=== PATIENT | female | born 1970 | race African-American/Black ===

== ENCOUNTER 2024-03-08 17:07 | Inpatient (IN) | payer MEDICARE, MEDICAID, SELFPAY ==
[2024-03-08] VITALS (11 sets, daily range): BP systolic 119–158; BP diastolic 88–122; BMI 23.0
[2024-03-08 12:45] LABS: % Basophils 0.1 % (0-2); % Immature Granulocytes 0.4 % (0-0.5); % Lymphocytes 13.3 % (20.5-51.1); % Monocytes 11.1 % (1.7-9.3); % Neutrophils 75.1 % (42.2-75.2); Absolute Immature Granulocytes 0.1 10^3/uL (0-0.05); Absolute Lymphocytes 1.5 10^3/uL (1.2-3.4); Absolute Monocytes 1.2 10^3/uL (0.1-0.6); Absolute Neutrophils 8.4 10^3/uL (1.4-6.5); Hemoglobin 13.1 g/dL (12.0-16.0); Mean Corp Hgb Conc. 35.4 g/dL (33.0-37.0); Mean Corpuscular Hgb 30.3 pg (27.0-31.0); Mean Corpuscular Volume 85.6 fL (81.0-99.0); Mean Platelet Volume 10.7 fL (7.4-10.4); Nucleated Red Blood Cells % 0 %; Platelet Count 233 10^3/uL (130-400); Red Blood Cell Count 4.32 10^6/uL (4.20-5.40); Red Cell Dist. Width 13.7 % (11.5-14.5); White Blood Cell Count 11.1 10^3/uL (4.8-10.8)
[2024-03-08 12:50] LABS: Potassium 3.2 mmol/L (3.5-5.1)
[2024-03-08 12:51] LABS: ALT (SGPT) 16 U/L (0-35); AST (SGOT) 36 U/L (14-36); Albumin 4.2 g/dl (3.5-5.0); Alkaline Phosphatase 67 U/L (38-126); Blood Urea Nitrogen 9 mg/dl (7-17); Calcium 10.2 mg/dl (8.4-10.2); Carbon Dioxide 25 mmol/L (22-30); Chloride 84 mmol/L (98-107); Glucose 156 mg/dl (70-99); Sodium 120 mmol/L (135-145); Total Bilirubin 0.9 mg/dl (0.2-1.3); Total Protein 6.9 g/dl (6.3-8.2); eGFR > 60.00
[2024-03-08 13:02] LABS: Troponin I < 0.012 ng/ml
[2024-03-08 13:21] LABS: Lipase 106 U/L (23-300)
--- NOTE | 2024-03-08 15:05 | ED.GENMED ---
History of Present Illness
<Zi Valero DO - Last Filed: 03/08/24 17:31>
General
Chief Complaint: Abdominal Symptoms
Time Seen by Provider: 03/08/24 14:25
<Anayeli Mcarthur PA-C - Last Filed: 03/16/24 10:25>
General
Source: patient
Exam Limitations: none
Nursing documentation reviewed up to this point in time: agreed with
History of Present Illness
History of Present Illness:
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
Presents for abdominal distention and vomiting. Patient apparently had vomited starting 2 days ago, the staff was unaware of whether she vomited yesterday but then again she vomited this morning and there were specks of blood in it. Patient
apparently has maybe some underlying chronic abdominal distention but this is questionable and not sure the reliability. Patient cannot offer much history. She is aware that she is in a hospital but does not really know why.
She is not known to be an alcoholic. She has recently had an MRI of her abdomen at an outside facility according to the nursing mold yarn supervisor who I talked to on the phone we do not have access to the copy of the MRI to tell us the report but did say
that there is 'something going on in her liver.'
Patient appears short of breath and in mild distress
Past History
<Anayeli Mcarthur PA-C - Last Filed: 03/16/24 10:25>
Past History
ED Past Medical History: Cancer (Breast), Hypothyroidism and Other (Intellectual delay)
Social History
Tobacco: Non-smoker
Alcohol: None
Drug: None
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
Review of Systems
<Anayeli Mcarthur PA-C - Last Filed: 03/16/24 10:25>
Review of Systems
Allergies reviewed?: Yes
Unable to obtain full review of systems at this time due to: due to acuity (Intellectual disability)
All Other Systems: Not applicable
Phy Exam
<Anayeli Mcarthur PA-C - Last Filed: 03/16/24 10:25>
Physical Exam
Physical Exam:
GENERAL: Alert , pale, tachypneic, tachycardic, looks mildly uncomfortable in mild distress
EYE: pupils equal and reactive
NECK: Supple
ENT: o/p clr, mmm.
CARDIAC: Tachycardic, no murmur
LUNGS: Tachypneic, diminished breath sounds, no wheezing, no cough
ABDOMEN: Tense, nontender, distended tympanic
NEUROLOGICAL: Alert and oriented, no focal neuro deficits
SKIN: Warm and dry, skin intact.
MUSCULOSKELETAL: No edema, well perfused.
PSYCH: Normal and appropriate interaction.
Course
<Zi Valero DO - Last Filed: 03/08/24 17:31>
Orders/Labs/Results
Orders:
Orders
03/08/24 12:17
Electrocardiogram (*1) Urgent
Reason for Study: Chest Pain
03/08/24 12:28
Complete Blood Count/With Diff Urgent
Comprehensive Metabolic Panel Urgent
Lipase Urgent
Serum Osmolality Urgent
Comment: ADD ON
TSH Reflex To Free T4 Urgent
Troponin I Urgent
03/08/24 14:46
CT Abd/Pel (IV only)-DH only Urgent
Comment:
Reason For Exam: abd distensino, fever
0.9% Sodium Chloride 500 ml [Nss] 500 ml IV BOLUS
Pantoprazole [Protonix IV] 40 mg IV NOW STA
03/08/24 14:58
Add On- LAB Urgent
Tests Added?: tsh free t4
03/08/24 Dinner
NPO
Allow oral meds: No
Allow clear liquids: No
03/08/24 15:03
Depakane Urgent
Lactic Acid Urgent
Blood Culture Urgent
DENYS Source: Blood/Venous
Specimen Description:
03/08/24 16:28
Osmolality, Random Urine Urgent
Date Specimen was Collected: 03/08/24
Time Specimen was Collected: 16:11
Urine Sodium Urgent
Date Specimen was Collected: 03/08/24
Time Specimen was Collected: 16:11
03/08/24 16:38
Potassium Chloride [KCl] 40 meq 0.9% Sodium Chloride 250 ml [Nss] 250 ml IV NOW
03/08/24 16:39
Consult Gastroenterology [GASTROINTESTINAL CONSULT] Urgent
Consulting Provider: Anayeli Bernard
Was physician already notified: Yes
Reason for consult: sigmoid volvulus
03/08/24 16:40
SURGICAL CONSULT Routine
Consulting Provider: Rich Hayes
Was physician already notified: Yes
Reason for consult: sigmoid volvulus
03/08/24 16:52
Admit/Transfer Patient As Directed
Co-Sign Provider:
Level of Care: Inpatient admission
Assign to:: IMU- Intermediate Care
Physician / Group: Jermaine
Diagnosis: sigmoid volvulus, hyponatremia
Reason for Hospitalization: sigmoid volvulus, hyponatremia
Expected length of stay greater than two midnights?: Yes
ELOS- Estimated Length of Stay in days: 5
I certify the patient meets the requirements for IP care: Yes
PRN Pain Medication Management As Directed
May give lesser potent ordered pain med per pt: Yes
preference::
Protocol:: Medication orders for pain may be administered in a
manner that supports deferring to patient preference
when the pt is:
- Requesting an ordered lesser potent pain medication.
Least to most potent pain medications are defined
as: acetaminophen < NSAID < tramadol < opioids
(morphine, oxycodone, hydromorphone).
- Requesting a lesser dose of the same medication IF
ORDERED.
- Requesting a less intrusive route of administration
if both routes are prescribed by the provider (PO <
IV).
03/08/24 16:53
Code Status As Directed
Resuscitation Status: Full Code
03/08/24 21:24
Bisacodyl [Dulcolax] 10 mg RECTAL [id number] PRN
Docusate W/Senna [Senokot-S] 1 tablet PO BIDPRN PRN
Enoxaparin Sodium [Lovenox] 40 mg SC QPM
KCl 20 Meq/0.9%Sodchl 1000 ml [NSS with KCL 20 MEQ] 20 meq in 1,000 ml IV 100 mls/hr
Levothyroxine [Levothroid] 37.5 mcg IV DAILY@1800
Patient requires IV dosing to begin now?: Yes
Reason to begin IV dosing now:: Other clinical indication
Polyethylene Glycol Powder [Miralax] 17 grams PO DAILYPRN PRN
03/08/24 21:24
Activity As Directed
Activity Level: With Assistance
Vital Signs As Directed
Frequency: Per unit guidelines
DX Deep Vein Thrombosis Video Routine
03/08/24 22:00
Valproate Sodium [Depacon] 500 mg 0.9% Sodium Chloride 50 ml [Nss] 50 ml IV HS
03/08/24 22:36
BMP [Basic Metabolic Panel] Q4H
03/09/24 04:02
BMP [Basic Metabolic Panel] Q4H
Complete Blood Count/No Diff IN AM
03/09/24 07:49
BMP [Basic Metabolic Panel] Q4H
03/09/24 08:00
Valproate Sodium [Depacon] 250 mg 0.9% Sodium Chloride 50 ml [Nss] 50 ml IV DAILY
03/09/24 11:34
BMP [Basic Metabolic Panel] Q4H
03/10/24 05:31
Complete Blood Count/No Diff IN AM
03/11/24 04:42
Complete Blood Count/No Diff IN AM
03/12/24 03:57
Complete Blood Count/No Diff IN AM
03/13/24 07:45
Complete Blood Count/No Diff IN AM
03/14/24 06:50
Complete Blood Count/No Diff IN AM
03/15/24 07:36
Complete Blood Count/No Diff IN AM
Abnormal Lab Results
03/08/24 03/08/24
15:03
WBC 11.1 H 10^3/uL
(4.8-10.8)
MPV 10.7 H fL
(7.4-10.4)
Abs Immat Gran (auto) 0.1 H 10^3/uL
(0-0.05)
Absolute Neuts (auto) 8.4 H 10^3/uL
(1.4-6.5)
Absolute Monos (auto) 1.2 H 10^3/uL
(0.1-0.6)
Lymphocytes % 13.3 L %
(20.5-51.1)
Monocytes % 11.1 H %
(1.7-9.3)
Sodium 120 L mmol/L
(135-145)
Potassium 3.2 L mmol/L
(3.5-5.1)
Chloride 84 L mmol/L
(98-107)
Creatinine 0.5 L mg/dL
(0.6-1.0)
Glucose 156 H mg/dl
(70-99)
Serum Osmolality 253 L mOsm/kg
(275-300)
Valproic Acid 45.0 L ug/ml
(50.0-120.0)
03/08/24 12:28
03/08/24 12:28
Vital Signs
Initial and Last Documented VS:
Initial Vital Signs
Temp Pulse Resp BP Pulse Ox
36.7 C 138 26 142/100 93
03/08/24 12:11 03/08/24 12:11 03/08/24 12:11 03/08/24 12:11 03/08/24 12:11
Last Documented Vital Signs
Temp Pulse Resp BP Pulse Ox
36.8 C 92 17 126/95 96
03/16/24 07:10 03/16/24 07:10 03/16/24 07:10 03/16/24 10:10 03/16/24 07:10
<Anayeli Mcarthur PA-C - Last Filed: 03/16/24 10:25>
Orders/Labs/Results
Orders:
Orders
03/08/24 12:17
Electrocardiogram (*1) Urgent
Reason for Study: Chest Pain
03/08/24 12:28
Complete Blood Count/With Diff Urgent
Comprehensive Metabolic Panel Urgent
Lipase Urgent
Serum Osmolality Urgent
Comment: ADD ON
TSH Reflex To Free T4 Urgent
Troponin I Urgent
03/08/24 14:46
CT Abd/Pel (IV only)-DH only Urgent
Comment:
Reason For Exam: abd distensino, fever
0.9% Sodium Chloride 500 ml [Nss] 500 ml IV BOLUS
Pantoprazole [Protonix IV] 40 mg IV NOW STA
03/08/24 14:58
Add On- LAB Urgent
Tests Added?: tsh free t4
03/08/24 Dinner
NPO
Allow oral meds: No
Allow clear liquids: No
03/08/24 15:03
Depakane Urgent
Lactic Acid Urgent
Blood Culture Urgent
DENYS Source: Blood/Venous
Specimen Description:
03/08/24 16:28
Osmolality, Random Urine Urgent
Date Specimen was Collected: 03/08/24
Time Specimen was Collected: 16:11
Urine Sodium Urgent
Date Specimen was Collected: 03/08/24
Time Specimen was Collected: 16:11
03/08/24 16:38
Potassium Chloride [KCl] 40 meq 0.9% Sodium Chloride 250 ml [Nss] 250 ml IV NOW
03/08/24 16:39
Consult Gastroenterology [GASTROINTESTINAL CONSULT] Urgent
Consulting Provider: Anayeli Bernard
Was physician already notified: Yes
Reason for consult: sigmoid volvulus
03/08/24 16:40
SURGICAL CONSULT Routine
Consulting Provider: Rich Hayes
Was physician already notified: Yes
Reason for consult: sigmoid volvulus
03/08/24 16:52
Admit/Transfer Patient As Directed
Co-Sign Provider:
Level of Care: Inpatient admission
Assign to:: IMU- Intermediate Care
Physician / Group: Jermaine
Diagnosis: sigmoid volvulus, hyponatremia
Reason for Hospitalization: sigmoid volvulus, hyponatremia
Expected length of stay greater than two midnights?: Yes
ELOS- Estimated Length of Stay in days: 5
I certify the patient meets the requirements for IP care: Yes
PRN Pain Medication Management As Directed
May give lesser potent ordered pain med per pt: Yes
preference::
Protocol:: Medication orders for pain may be administered in a
manner that supports deferring to patient preference
when the pt is:
- Requesting an ordered lesser potent pain medication.
Least to most potent pain medications are defined
as: acetaminophen < NSAID < tramadol < opioids
(morphine, oxycodone, hydromorphone).
- Requesting a lesser dose of the same medication IF
ORDERED.
- Requesting a less intrusive route of administration
if both routes are prescribed by the provider (PO <
IV).
03/08/24 16:53
Code Status As Directed
Resuscitation Status: Full Code
03/08/24 21:24
Bisacodyl [Dulcolax] 10 mg RECTAL [id number] PRN
Docusate W/Senna [Senokot-S] 1 tablet PO BIDPRN PRN
Enoxaparin Sodium [Lovenox] 40 mg SC QPM
KCl 20 Meq/0.9%Sodchl 1000 ml [NSS with KCL 20 MEQ] 20 meq in 1,000 ml IV 100 mls/hr
Levothyroxine [Levothroid] 37.5 mcg IV DAILY@1800
Patient requires IV dosing to begin now?: Yes
Reason to begin IV dosing now:: Other clinical indication
Polyethylene Glycol Powder [Miralax] 17 grams PO DAILYPRN PRN
03/08/24 21:24
Activity As Directed
Activity Level: With Assistance
Vital Signs As Directed
Frequency: Per unit guidelines
DX Deep Vein Thrombosis Video Routine
03/08/24 22:00
Valproate Sodium [Depacon] 500 mg 0.9% Sodium Chloride 50 ml [Nss] 50 ml IV HS
03/08/24 22:36
BMP [Basic Metabolic Panel] Q4H
03/09/24 04:02
BMP [Basic Metabolic Panel] Q4H
Complete Blood Count/No Diff IN AM
03/09/24 07:49
BMP [Basic Metabolic Panel] Q4H
03/09/24 08:00
Valproate Sodium [Depacon] 250 mg 0.9% Sodium Chloride 50 ml [Nss] 50 ml IV DAILY
03/09/24 11:34
BMP [Basic Metabolic Panel] Q4H
03/10/24 05:31
Complete Blood Count/No Diff IN AM
03/11/24 04:42
Complete Blood Count/No Diff IN AM
03/12/24 03:57
Complete Blood Count/No Diff IN AM
03/13/24 07:45
Complete Blood Count/No Diff IN AM
03/14/24 06:50
Complete Blood Count/No Diff IN AM
03/15/24 07:36
Complete Blood Count/No Diff IN AM
Abnormal Lab Results
03/08/24 03/08/24
12 15:03
WBC 11.1 H 10^3/uL
(4.8-10.8)
MPV 10.7 H fL
(7.4-10.4)
Abs Immat Gran (auto) 0.1 H 10^3/uL
(0-0.05)
Absolute Neuts (auto) 8.4 H 10^3/uL
(1.4-6.5)
Absolute Monos (auto) 1.2 H 10^3/uL
(0.1-0.6)
Lymphocytes % 13.3 L %
(20.5-51.1)
Monocytes % 11.1 H %
(1.7-9.3)
Sodium 120 L mmol/L
(135-145)
Potassium 3.2 L mmol/L
(3.5-5.1)
Chloride 84 L mmol/L
(98-107)
Creatinine 0.5 L mg/dL
(0.6-1.0)
Glucose 156 H mg/dl
(70-99)
Serum Osmolality 253 L mOsm/kg
(275-300)
Valproic Acid 45.0 L ug/ml
(50.0-120.0)
03/08/24 12:28
03/08/24 12:28
Vital Signs
Initial and Last Documented VS:
Initial Vital Signs
Temp Pulse Resp BP Pulse Ox
36.7 C 138 26 142/100 93
03/08/24 12:11 03/08/24 12:11 03/08/24 12:11 03/08/24 12:11 03/08/24 12:11
Last Documented Vital Signs
Temp Pulse Resp BP Pulse Ox
36.8 C 92 17 126/95 96
03/16/24 07:10 03/16/24 07:10 03/16/24 07:10 03/16/24 10:10 03/16/24 07:10
<Anayeli Mcarthur PA-C - Last Filed: 03/16/24 10:25>
MDM/Problems Addressed
Differential Diagnosis Includes:
liver disease/ascites, peritonitis, sbo
MDM/Problems Addressed:
room 14 formerly [facility], [facility]
senior care, poor historian
severe abd distension and n/v x 2-3 days; tachypneic, tachycardic, hypertensive
na 120
looks dry mucus membraines
CT shows likely sigmoid volvulus; probably has underlying mass of some sort;
consulted surgery, dr hayes aware; from recommneded GI to perform urgent flex/sig
dr. bernard GI also aware
pt may require ICU level of care
<Anayeli Mcarthur PA-C - Last Filed: 03/16/24 10:25>
*Critical Care Note
Total Time (30-74mins, 75-104mins- exclusive of procedures): Not Applicable
ED Attending Note
<Zi Valero DO - Last Filed: 03/08/24 17:31>
ED Attending Note
Patient seen and examined by attending physician: Yes
I performed the substantive portion of visit, reviewed & personally made and approve the management plan that is documented in note by myself or MICHAELLE.: Yes
-
Portions of this chart may have been created with voice recognition software.� Occasional wrong word or��sound alike� substitutions may have occurred due to the inherent limitations of voice recognition software.
Discharge Plan
Departure
Patient Disposition: Admit
Date of Disposition: 03/08/24
Time of Disposition: 16:20
Admit to: IMU
Presentation/result/management discussed w/ accepting MD/DO: Hospitalist
Condition: Fair
Covid-19: Not Applicable
Discharge Problem:
Acute hyponatremia, Sigmoid volvulus
Interventions
Interventions:
*Risk Screen - Suicide Last Done: 03/08/24 23:23
ED- Fall Risk Assessment Last Done: 03/08/24 15:20
*Nursing Disposition Last Done: 03/08/24 17:51
BJ-Btjiwu-Ogbmlvrjct Assessment Last Done: 03/08/24 14:19
Discharge Date and Time
Discharge Date/Time: 03/08/24 17:52
[2024-03-08] MEDS: PROTONIX IV 40 MG IV (15:08)
[2024-03-08] MEDS: NSS 500 IV (15:08)
[2024-03-08 15:22] LABS: Lactic Acid 1.5 mmol/L (0.7-2.0)
[2024-03-08 16:08] LABS: TSH Reflex To Free T4 2.79 uIU/ml (0.47-4.68)
[2024-03-08 16:34] LABS: Osmolality Serum 253 mOsm/kg (275-300)
--- NOTE | 2024-03-08 16:37 | HPS.HSE ---
Addendum entered and electronically signed by Juan Jose Dean MD 03/08/24 16:57:
Correction to physical exam (please ignore other physical exam):
Gen: NAD, AAOx2.
Eyes: EOMI, PERRLA, no scleral icterus.
Neck: supple.
CV: tach, reg, rhythm, +S1/S2, no m/r/g.
Resp: CTAB, no rales, wheezes, or rhonchi.
Abd: +BS, soft, NT, severe abdominal distention
Skin: No rashes.
Neuro: CN 2-12 intact, non-focal.
Psych: Normal mood and affect.
Original Note:
Family Physician
-
Family Physician: Corwin Haq
Chief Complaint
-
Abdominal distention, vomiting
History of Present Illness
54 y/o F with PMHx hypothyroidism and likely developmental delay who p/w CC abdominal distention and vomiting. The patient is very poor historian. She knows her name and where she is but is unsure of the year. She states a few days ago she had
vomiting (without hematemesis or coffee-ground emesis) as well as a bowel movement in a 'bathtub.' She states she had a bowel movement this morning. She cannot give any further history. Denies any other acute complaints. In the ER the patient
had a significantly distended abdomen and CT scan of the abdomen pelvis was concerning for sigmoid volvulus causing large bowel obstruction.
Medical History
Past Medical History
Past Medical History: Reports Hyperthyroidism
Past Surgical History: Reports Other (unknown, N/A)
Social History
Tobacco: Non-smoker
Alcohol: None
Drug: None
Family History
Family History: Not pertinent
Allergies / Home Medications
Allergies reflects when Allergies were last updated in [facility] [employer].
Home Medications with original date entered in [facility]
Allergy/Medication List:
Allergies
Allergy/AdvReac Type Severity Reaction Status Date / Time
clonazepam Allergy Unknown Verified 03/08/24 12:19
haloperidol [From Haldol] Allergy Unknown Verified 03/08/24 12:19
molindone [From Moban] Allergy Unknown Verified 03/08/24 12:19
nickel Allergy Unknown Verified 03/08/24 12:19
Thioxanthenes Allergy Unknown Verified 03/08/24 12:19
risperdone, strattera, depakote, levothyroxine - med rec underway
Review of Systems
-
Unable to obtain full review of systems at this time due to: Other (developmental delay and acuity)
Physical Exam
Vital Signs
Vital Signs
Temp Pulse Resp BP Pulse Ox
98.0 F 138 17 142/100 93
03/08/24 12:11 03/08/24 12:11 03/08/24 15:23 03/08/24 12:11 03/08/24 12:11
Physical Exam
General: Other (.)
Laboratory Results
-
03/08/24 12:28
03/08/24 12:28
Laboratory Results
Lactic Acid 1.5 mmol/L (0.7-2.0) 03/08/24 15:03
Total Bilirubin 0.9 mg/dl (0.2-1.3) 03/08/24 12:28
AST 36 U/L (14-36) 03/08/24 12:28
ALT 16 U/L (0-35) 03/08/24 12:28
Alkaline Phosphatase 67 U/L (38-126) 03/08/24 12:28
Troponin I < 0.012 ng/ml 03/08/24 12:28
Lipase 106 U/L (23-300) 03/08/24 12:28
Impression/Plan
-
Gen: NAD, AAOx3.
Eyes: EOMI, PERRLA, no scleral icterus.
Neck: supple.
CV: RRR, +S1/S2, no m/r/g.
Resp: CTAB, no rales, wheezes, or rhonchi.
Abd: +BS, soft, NT, ND
Skin: No rashes.
Neuro: CN 2-12 intact, non-focal.
Psych: Normal mood and affect.
CT A/P: Large bowel obstruction with pronounced dilation of the colon extending to the distal sigmoid. There is apparent twisting of the sigmoid colon, seen best on coronal imaging, highly suspicious for sigmoid volvulus. There is a 10.0 x 8.3 x 8.4
cm cystic focus within the presacral/retrouterine space which may represent cystic presacral or ovarian lesion, or possible loculated fluid. There is an additional 3.4 cm hypodense lesion within the right ovary. Further evaluation with dedicated
pelvic ultrasound is recommended. There are numerous hypodense hepatic lesions with the largest measuring 8.9 cm. These appear to demonstrate peripheral, nodular discontinuous enhancement and may represent large hemangiomas although metastatic
disease is possible. Recommend MRI abdomen for further evaluation. There are numerous mildly hypodense lesions within the spleen which measure up to 1.4 cm which are indeterminant on this examination however may represent hemangiomas, although
metastasis are also possible. Further evaluation with MRI abdomen should be considered. There is elevation of the left hemidiaphragm with left basilar atelectasis. There is small volume intrahepatic free fluid. Diffuse osteopenia with scattered
sclerotic foci, possible bone islands.
Acute large bowel obstruction due to sigmoid volvulus:
-NPO/IVFs
-c/s GI for endoscopic decompression
-c/s surgery
-will need further imaging to better assess other findings on the CT scan of the abdomen pelvis. Concern for underlying malignancy.
Severe Hypotonic Hyponatremia:
-Likely due to intraabdominal pathology and psychotropic meds
-UOsm 678, SOsm 253, Adryan pending
-NS with 20meq K/L @100cc/hr, follow BMP Q4H
-c/s renal
Other problems:
Hypothyroidism: TSH normal, will give IV synthroid
Hypokalemia: 40meq IV K, check Mg
FULL/Lovenox
[2024-03-08 16:39] LABS: Osmolality Urine 678 mOsm/kg (300-900)
[2024-03-08 16:58] LABS: Urine Sodium 30 mmol/L (30-90)
--- NOTE | 2024-03-08 16:59 | W.CON.NEPH ---
Consultation
-
Date/Time Consultation Requested: 03/08/241649
Date/Time Consultation Performed: 03/08/24 1715
Requesting Provider: Juan Jose Duff
Performing Provider: Cheyanne Jackman
Reason for Consultation: hyponatremia
Medical History
-
Chief Complaint: abdominal distension and vomiting
History of Present Illness:
54-year-old female from a snf with Possible developmental delay, on multiple psychotropic medications, hypothyroidism on levothyroxine who was brought in today with complaints about abdominal distention, pain and vomiting. Patient is a poor
historian due to her cognitive state, she reports having nausea and vomiting for 3-4 days. She reports not able to pass gas and her abdomen distended with the pain. in the ER CT scan shows possible sigmoid volvulus. GI and surgery has been
consult that. Her blood pressures are slightly elevated however she is tachycardic. She denies any fever or dysuria. no shortness of breath. As stated history is limited. Most of the history is opted to the chart. Her labs noted to have sodium
of 120 hence nephrology consult at. She reports no previous history of hyponatremia that she Can remember. reportedly CT scan also shows multiple hypodense areas, from ER notes she had MRI done as an outpatient and do not have report currently.
She received 500 cc of normal saline bolus.
Past Medical History
hypothyroidism, developmental delay
Social History
Tobacco: Non-Smoker
Alcohol: None
Personal: Single
Living: With Roomate (snf)
Family History
unable to obtain, patient poor historian
Allergies / Home Medications
Allergy/AdvReac Type Severity Reaction Status Date / Time
clonazepam Allergy Unknown Verified 03/08/24 12:19
haloperidol [From Haldol] Allergy Unknown Verified 03/08/24 12:19
molindone [From Moban] Allergy Unknown Verified 03/08/24 12:19
nickel Allergy Unknown Verified 03/08/24 12:19
Thioxanthenes Allergy Unknown Verified 03/08/24 12:19
�Medication �Instructions �Recorded �Confirmed �Type
acetaminophen 325 mg tablet 650 mg PO Q4HPRN PRN mild 03/08/24 03/08/24 History
pain/headache/temp>101
atomoxetine 18 mg capsule 18 mg PO DAILY 03/08/24 03/08/24 History
calcium 600 mg (as 2 tab PO HS 03/08/24 03/08/24 History
carbonate)-vitamin D3 10 mcg (400
unit) tablet (Calcium 600 + D(3))
dextromethorphan-guaifenesin 10 10 ml PO Q4HPRN PRN cough 03/08/24 03/08/24 History
mg-100 mg/5 mL oral syrup (Chest
Congestion Relief DM)
divalproex 250 mg tablet,extended 250 mg PO DAILY 03/08/24 03/08/24 History
release 24 hr
divalproex 500 mg tablet,extended 500 mg PO HS 03/08/24 03/08/24 History
release 24 hr
docusate sodium 100 mg capsule 100 mg PO BID 03/08/24 03/08/24 History
hydroxyzine HCl 25 mg tablet 25 mg PO DAILYPRN PRN anxiety 03/08/24 03/08/24 History
before medical procedure
latanoprost 0.005 % eye drops 1 drp BOTH EYES HS 03/08/24 03/08/24 History
levothyroxine 50 mcg tablet 50 mcg PO DAILY 03/08/24 03/08/24 History
loperamide 2 mg capsule 2 mg PO Q4HPRN PRN diarrhea 03/08/24 03/08/24 History
loratadine 10 mg tablet 10 mg PO DAILYPRN PRN allergy/cough 03/08/24 03/08/24 History
neomycin-bacitracn Zn-polymyxn 3.5 1 applic topical TIDPRN PRN 03/08/24 03/08/24 History
mg-400 unit-5,000 unit top oint cuts/scrapes/abrasion
pkt (Triple Antibiotic)
polyethylene glycol 3350 17 gram 17 g PO Q48H 03/08/24 03/08/24 History
oral powder packet (Gavilax)
pseudoephedrine HCl 30 mg tablet 30 mg PO Q6HPRN PRN nasal 03/08/24 03/08/24 History
(Sudogest) congestion
risperidone 3 mg tablet 3 mg PO HS 03/08/24 03/08/24 History
therapeutic multivitamin 1 tab PO DAILY 03/08/24 03/08/24 History
tolterodine 2 mg capsule,extended 2 mg PO HS 03/08/24 03/08/24 History
release 24 hr
Review of Systems
-
Poor historian, all complete 12 point review of system have been inquired and found negative other than stated in HPI
Physical Exam
Vital Signs
Vital Signs
Temp Pulse Resp BP Pulse Ox
99.1 F 114 24 145/111 93
03/08/24 16:42 03/08/24 16:30 03/08/24 16:30 03/08/24 16:26 03/08/24 16:30
Lab Results
WBC 11.1 10^3/uL (4.8-10.8) H 03/08/24 12:28
RBC 4.32 10^6/uL (4.20-5.40) 03/08/24 12:28
Hgb 13.1 g/dL (12.0-16.0) 03/08/24 12:28
Hct 37.0 % (37.0-47.0) 03/08/24 12:28
Plt Count 233 10^3/uL (130-400) 03/08/24 12:28
Sodium 120 mmol/L (135-145) L 03/08/24 12:28
Potassium 3.2 mmol/L (3.5-5.1) L 03/08/24 12:28
Chloride 84 mmol/L (98-107) L 12/25/24 12:
Carbon Dioxide 25 mmol/L (22-30) 03/08/24 12:
BUN 9 mg/dl (7-17) 03/08/24 12:
Creatinine 0.5 mg/dL (0.6-1.0) L 03/08/24 12:
eGFR > 60.00 03/08/24 12:
Glucose 156 mg/dl (70-99) H 03/08/24 12:
Calcium 10.2 mg/dl (8.4-10.2) 03/08/24 12:
Albumin 4.2 g/dl (3.5-5.0) 03/08/24 12:
CT abd with IV contrast:
IMPRESSION:
Large bowel obstruction with pronounced dilation of the colon extending to the distal sigmoid. There is apparent twisting of the sigmoid colon, seen best on coronal imaging, highly suspicious for sigmoid volvulus.
There is a 10.0 x 8.3 x 8.4 cm cystic focus within the presacral/retrouterine space which may represent cystic presacral or ovarian lesion, or possible loculated fluid. There is an additional 3.4 cm hypodense lesion within the right ovary. Further
evaluation with dedicated pelvic ultrasound is recommended.
There are numerous hypodense hepatic lesions with the largest measuring 8.9 cm. These appear to demonstrate peripheral, nodular discontinuous enhancement and may represent large hemangiomas although metastatic disease is possible. Recommend MRI
abdomen for further evaluation.
There are numerous mildly hypodense lesions within the spleen which measure up to 1.4 cm which are indeterminant on this examination however may represent hemangiomas, although metastasis are also possible. Further evaluation with MRI abdomen should
be considered.
There is elevation of the left hemidiaphragm with left basilar atelectasis.
There is small volume intrahepatic free fluid.
Diffuse osteopenia with scattered sclerotic foci, possible bone islands.
Physical Exam
General: Awake, Alert, Oriented and AOx3
HEENT: EOMI, Anicteric and Facial Symmetry
Respiratory: Clear, Normal Excursion and Nonlabored Respirations
Cardiac: S1/S2 and Regular Rate/Rhythm
Breast: Deferred by me
Abdomen: Other ( firm, distended, tympanic BS)
Musculoskeletal: No Cyanosis and No Edema
Skin: No Rash
Neuro: Nonfocal/Grossly Intact
Psych: Appropriate
Data Reviewed
-
CT Scan: Report Reviewed by me
Labs: Labs Reviewed by me and Discussed with Patient
Assessment/Plan
-
IMP:
Acute large bowel obstruction due to sigmoid volvulus
Severe Hyponatremia
Hypothyroidism
Hypokalemia
Developmental delay
Osteopenia noted on CT
Hepatic hypodense lesions noted on CT
Ovarian cyst /lesion 10cm -on CT
Plan:
A/w abd distension and vomiting
CT noted sigmoid volvulus-NPO, GI and surg consulted
hyponatremia-no previous labs to compare
ADH mediated U osmo 678, U na 30
possible prerenal-hypovolemic clinically
agree with isotonic fluids, follow q4 check of sodium
goal of correction 6-8meq/day
consider HTS if no sig improvement noted
note she is on multiple psychotropic meds
monitor UOP
replace potassium
CT abd noted multiple other lesions
bp stable
--- NOTE | 2024-03-08 17:06 | CON.GI ---
Consultation
-
Date/Time Consultation Requested: 03/08/24
Date/Time Consultation Performed: 03/08/24
Requesting Provider: Dr. Hayes
Performing Provider: Dr. Bernard
Reason for Consultation: Sigmoid volvulus
Medical History
Chief Complaint / HPI
Chief Complaint: sigmoid volvulus
History of Present Illness:
Kendra Gandhi is a 54 y.o. female with intellectual disability who presents from her longterm, accompanied by [employer] working with 2 days of vomiting and abdominal distension. Imaging on arrival demonstrates large bowel obstruction with sigmoid
volvulus, c/f underlying colon mass. She was mildly hypertensive on arrival, tachypneic and tachycardic, afebrile. Unable to participate in history due to dementia. intermediate employee mentioned MRI of abdomen at outside facility somewhat recently,
notes 'abnormalities in the liver.'
She has a mild leukocytosis, WBC 11.1, otherwise, normal hemoglobin and platelets. Noted to have significant hyponatremia of 120, K 3.2, Serum osm 253, LFTs WNL, Lipase WNL.
MERON (Sister)- Ana María Johsn
CT A/P: Large bowel obstruction with pronounced dilation of the colon extending to the distal sigmoid. There is apparent twisting of the sigmoid colon, seen best on coronal imaging, highly suspicious for sigmoid volvulus. There is a 10.0 x 8.3 x 8.4
cm cystic focus within the presacral/retrouterine space which may represent cystic presacral or ovarian lesion, or possible loculated fluid. There is an additional 3.4 cm hypodense lesion within the right ovary. Further evaluation with dedicated
pelvic ultrasound is recommended. There are numerous hypodense hepatic lesions with the largest measuring 8.9 cm. These appear to demonstrate peripheral, nodular discontinuous enhancement and may represent large hemangiomas although metastatic
disease is possible. Recommend MRI abdomen for further evaluation. There are numerous mildly hypodense lesions within the spleen which measure up to 1.4 cm which are indeterminant on this examination however may represent hemangiomas, although
metastasis are also possible. Further evaluation with MRI abdomen should be considered. There is elevation of the left hemidiaphragm with left basilar atelectasis. There is small volume intrahepatic free fluid. Diffuse osteopenia with scattered
sclerotic foci, possible bone islands.
Past Medical History
Past Medical History: Hyperthyroidism and Other (intellectualdisability )
Past Surgical History: Other (other)
Social History
Tobacco: Non-Smoker
Alcohol: None
Drug: None
Living: Other (longterm)
Family History
Family History: Unable to Obtain
Allergies / Home Medications
Allergy/AdvReac Type Severity Reaction Status Date / Time
clonazepam Allergy Unknown Verified 03/08/24 12:19
haloperidol [From Haldol] Allergy Unknown Verified 03/08/24 12:19
molindone [From Moban] Allergy Unknown Verified 03/08/24 12:19
nickel Allergy Unknown Verified 03/08/24 12:19
Thioxanthenes Allergy Unknown Verified 03/08/24 12:19
�Medication �Instructions �Recorded
acetaminophen 325 mg tablet 650 mg PO Q4HPRN PRN mild 03/08/24
pain/headache/temp>101
atomoxetine 18 mg capsule 18 mg PO DAILY 03/08/24
calcium 600 mg (as 2 tab PO HS 03/08/24
carbonate)-vitamin D3 10 mcg (400
unit) tablet (Calcium 600 + D(3))
dextromethorphan-guaifenesin 10 10 ml PO Q4HPRN PRN cough 03/08/24
mg-100 mg/5 mL oral syrup (Chest
Congestion Relief DM)
divalproex 250 mg tablet,extended 250 mg PO DAILY 03/08/24
release 24 hr
divalproex 500 mg tablet,extended 500 mg PO HS 03/08/24
release 24 hr
docusate sodium 100 mg capsule 100 mg PO BID 03/08/24
hydroxyzine HCl 25 mg tablet 25 mg PO DAILYPRN PRN anxiety 03/08/24
before medical procedure
latanoprost 0.005 % eye drops 1 drp BOTH EYES HS 03/08/24
levothyroxine 50 mcg tablet 50 mcg PO DAILY 03/08/24
loperamide 2 mg capsule 2 mg PO Q4HPRN PRN diarrhea 03/08/24
loratadine 10 mg tablet 10 mg PO DAILYPRN PRN allergy/cough 03/08/24
neomycin-bacitracn Zn-polymyxn 3.5 1 applic topical TIDPRN PRN 03/08/24
mg-400 unit-5,000 unit top oint cuts/scrapes/abrasion
pkt (Triple Antibiotic)
polyethylene glycol 3350 17 gram 17 g PO Q48H 03/08/24
oral powder packet (Gavilax)
pseudoephedrine HCl 30 mg tablet 30 mg PO Q6HPRN PRN nasal 03/08/24
(Sudogest) congestion
risperidone 3 mg tablet 3 mg PO HS 03/08/24
therapeutic multivitamin 1 tab PO DAILY 03/08/24
tolterodine 2 mg capsule,extended 2 mg PO HS 03/08/24
release 24 hr
Review of Systems
-
Unable to obtain full review of systems at this time due to: Acuity and Other (developmental delay)
History Source: Transfer Record, Physician and Coordinating Provider
Vital Signs
Temp Pulse Resp BP Pulse Ox
99.1 F 114 24 145/111 93
03/08/24 16:42 03/08/24 16:30 03/08/24 16:30 03/08/24 16:26 03/08/24 16:30
Physical Exam
Exam
GI: Distended (Significant abdominal distension, TTP diffusely but no rebound or guarding. Hypoactive BS (but present)) and Other
Results
WBC 11.1 10^3/uL (4.8-10.8) H 03/08/24 12:28
Hgb 13.1 g/dL (12.0-16.0) 03/08/24 12:
Hct 37.0 % (37.0-47.0) 03/08/24 12:
MCV 85.6 fL (81.0-99.0) 03/08/24 12:
Plt Count 233 10^3/uL (130-400) 03/08/24 12:
Absolute Neuts (auto) 8.4 10^3/uL (1.4-6.5) H 03/08/24 12:
Sodium 120 mmol/L (135-145) L 03/08/24 12:
Potassium 3.2 mmol/L (3.5-5.1) L 03/08/24 12:
Chloride 84 mmol/L (98-107) L 03/08/24 12:
Carbon Dioxide 25 mmol/L (22-30) 03/08/24 12:
BUN 9 mg/dl (7-17) 03/08/24 12:
Creatinine 0.5 mg/dL (0.6-1.0) L 03/08/24 12:
Calcium 10.2 mg/dl (8.4-10.2) 03/08/24 12:
Total Bilirubin 0.9 mg/dl (0.2-1.3) 03/08/24 12:
AST 36 U/L (14-36) 03/08/24 12:
ALT 16 U/L (0-35) 03/08/24 12:
Alkaline Phosphatase 67 U/L (38-126) 03/08/24 12:28
Lipase 106 U/L (23-300) 03/08/24 12:
Diagnostic Image Results:
Prior GI Procedures:
EGD:
Colonoscopy:
Assessment / Plan
-
54 y.o. female with intellectual disability presents from longterm with 2 days of nausea, vomiting and abdominal distension found to sigmoid volvulus, labs notable for severe hyponatremia.
#Large bowel obstruction 2/2 Sigmoid volvulus
-CT A/P shows large bowel obstruction 2/2 sigmoid volvulus with presene of 10 x 8.3. x 8.4 cystic focus within the presacral/retrouterine space which may represent cystic presacral or ovarian lesion or possibly loculated fluid; additional 3.4 cm
hypodense lesion in the right ovary, recc dedicated pelvic US; numerous hypodense lesions visualized in the liver, the largest measuring 8.9 cm, could represent large hemangiomas vs. mets
-Plan for urgent endoscopic decompression; POA called x2, no answer, VM left to call hospital back to discuss urgent situation and need to discuss her sisters care; in this setting, endoscopic decompression is a temporary treatment and will recur
without more definitive intervention (i.e. surgical intervention)
-Surgery following
-given findings on CT scan, will need dedicated pelvic US as well as MRI abdomen when more acute issue has resolved\\
#Hyponatremia
-Na 120, Serum osm 253, Uosm 678, Adryan pending
-Correction per primary team
-given need for urgent decompression, anesthesia okay with proceeding
Data Reviewed
-
Radiology: Image Personally Visualized and interpreted, Report Reviewed by me and Discussed with Physician
-
-
Thank you for consultation and allowing me to participate in the patient's care. Please call the contact worker GI physician during the after hours with any questions or concerns.
--- NOTE | 2024-03-08 18:00 | W.PN.UPDATE ---
Update Note
Progress Note Update
Attempted to reach patient's POA (Sister), Ana María x3, VM left, no return call. Due to medical emergency, will proceed with endoscopic decompression with 2 physician consent, myself and anesthesiologist, Dr. Pinedo.
--- NOTE | 2024-03-08 21:20 | W.PN.UPDATE ---
Update Note
Progress Note Update
Brief consult note:
54F with developmental delay and minimal clinical insight (not capacitated) admitted for sigmoid volvulus. Endoscopic mgmt attempted unsuccessfully by GI team. Concern for ischemia on endoscopic findings. Plan for emergent ex-lap. [facility] and [facility]
contact both called, unable to reach.
Full consult note to follow
--- NOTE | 2024-03-08 21:21 | W.IMMPOSTOP ---
Surgical Immed Post Op Note
-
Primary Surgeon: Abigail
Pre-op Diagnosis: Sigmoid volvulus
Post-op Diagnosis: Same
Procedure Performed: Exploratory laparotomy, sigmoidectomy, creation end colostomy
Anesthesia Type: GETA + TAP block
Specimen / Cultures: Sigmoid colon
Estimated Blood Loss: 50cc
Complications: None immediate
Operative Findings: Severely distended colon, worst at sigmoid, with torsion point low in the pelvis; patchy ischemia around the torsion point; rectal stump stapled off distal to ischemic area and tagged with 2-0 prolene; descending end colostomy
created, brisk bleeding at cut edge of stoma, virtually no contamination; roughly 50cm colon resected, large redundant transverse colon noted
Sister Ana María called, unable to reach VM left
--- NOTE | 2024-03-08 22:12 | SUR.PHASEI ---
Pt adm to PACU drowsy but arousable, VSS, BBS clear. Abd distended,Dr. Hayes aware NGT placement confirmed, To low suction with no output at this time. Dr Hayes aware , stomach emptied prior to D/C from OR. No complaints of pain , HOB up 30
degrees.
--- NOTE | 2024-03-08 22:40 | SUR.PHASEI ---
No increase in abd distension, Colostomy stoma pink, min amt bloody gg in colostomy bag. Pt more awake.VSS
[2024-03-08 22:58] LABS: Blood Urea Nitrogen 8 mg/dl (7-17); Calcium 7.6 mg/dl (8.4-10.2); Carbon Dioxide 27 mmol/L (22-30); Chloride 90 mmol/L (98-107); Estimated Creatinine Clearance 113 ml/min; Glucose 125 mg/dl (70-99); Potassium 3.8 mmol/L (3.5-5.1); Sodium 122 mmol/L (135-145); eGFR > 60.00
[2024-03-08] MEDS: NSS with KCL 20 MEQ 1000 IV (23:40)
[2024-03-08] MEDS: DEPACON 55 MG IV (23:45)
[2024-03-08] MEDS: LEVOTHROID IV (23:56)
[2024-03-08] MEDS: LOVENOX SC (23:56)
[2024-03-09] VITALS (13 sets, daily range): BP systolic 90–116; BP diastolic 62–90
--- NOTE | 2024-03-09 04:20 | PTCARENOTE ---
Rec'd pt from PACU as new admit. Pt drowsy, but arousable to verbal stimuli. 2L NC present, SaO2 96%. Alba present, hygiene care performed. Midline abd aquacell dressing present with shadowing. Colostomy stoma pink, minimal amount of bloody
drainage present in bag. Pt appreciative, thankful, but offers minimal verbal response to questioning. VS as documented. IVF hung through R AC IV, see MAR. Call kahn within reach. Bed alarm in place for pt safety.
[2024-03-09 05:00] LABS: Hematocrit 36.4 % (37.0-47.0); Hemoglobin 12.4 g/dL (12.0-16.0); Mean Corp Hgb Conc. 34.1 g/dL (33.0-37.0); Mean Corpuscular Hgb 30.1 pg (27.0-31.0); Mean Corpuscular Volume 88.3 fL (81.0-99.0); Mean Platelet Volume 11.2 fL (7.4-10.4); Platelet Count 196 10^3/uL (130-400); Red Blood Cell Count 4.12 10^6/uL (4.20-5.40); Red Cell Dist. Width 14.1 % (11.5-14.5); White Blood Cell Count 5.7 10^3/uL (4.8-10.8)
[2024-03-09 05:37] LABS: Blood Urea Nitrogen 7 mg/dl (7-17); Calcium 8.4 mg/dl (8.4-10.2); Carbon Dioxide 28 mmol/L (22-30); Chloride 100 mmol/L (98-107); Estimated Creatinine Clearance 113 ml/min; Glucose 101 mg/dl (70-99); Potassium 3.8 mmol/L (3.5-5.1); Sodium 133 mmol/L (135-145); eGFR > 60.00
[2024-03-09] MEDS: DEPACON 52.5 MG IV (07:45)
--- NOTE | 2024-03-09 07:45 | PTCARENOTE ---
Dr. Dean made aware of patients temp of 100.9 this AM. Care ongoing at this time.
--- NOTE | 2024-03-09 07:52 | W.PN.HOSP.TC ---
Today's Communication/Plan
-
see bold
Assessment / Plan
Assessment / Plan
Gen: NAD, Awake and alert
Eyes: EOMI, PERRLA, no scleral icterus.
Neck: supple.
CV: remains tachy, reg, rhythm, +S1/S2, no m/r/g.
Resp: CTAB anteriorly, no rales, wheezes, or rhonchi.
Abd: +BS, soft, NT to light palpation, mild-mod abdominal distention
Skin: No rashes.
Neuro: CN 2-12 intact, non-focal.
Psych: Normal mood and affect.
CT A/P: Large bowel obstruction with pronounced dilation of the colon extending to the distal sigmoid. There is apparent twisting of the sigmoid colon, seen best on coronal imaging, highly suspicious for sigmoid volvulus. There is a 10.0 x 8.3 x 8.4
cm cystic focus within the presacral/retrouterine space which may represent cystic presacral or ovarian lesion, or possible loculated fluid. There is an additional 3.4 cm hypodense lesion within the right ovary. Further evaluation with dedicated
pelvic ultrasound is recommended. There are numerous hypodense hepatic lesions with the largest measuring 8.9 cm. These appear to demonstrate peripheral, nodular discontinuous enhancement and may represent large hemangiomas although metastatic
disease is possible. Recommend MRI abdomen for further evaluation. There are numerous mildly hypodense lesions within the spleen which measure up to 1.4 cm which are indeterminant on this examination however may represent hemangiomas, although
metastasis are also possible. Further evaluation with MRI abdomen should be considered. There is elevation of the left hemidiaphragm with left basilar atelectasis. There is small volume intrahepatic free fluid. Diffuse osteopenia with scattered
sclerotic foci, possible bone islands.
Acute large bowel obstruction due to sigmoid volvulus:
-s/p Exploratory laparotomy, sigmoidectomy, creation end colostomy on 03/08/24
-NPO/IVFs
-NGT to low-intermittent suction
-pain control
-will need further imaging to better assess other findings on the CT scan of the abdomen pelvis. Concern for underlying malignancy.
-fever this AM could be post-op related, regardless, will start Zosyn after discussion with Dr. Hayes
Severe Hypotonic Hyponatremia:
-Likely due to intraabdominal pathology, including rapid dehydration, and psychotropic meds
-UOsm 678, SOsm 253, Adryan 30
-renal following
-1L D5W over 2 hours as per renal (see update note)
Other problems:
Hypothyroidism: TSH normal, cont IV synthroid
Hypokalemia, resolved
FULL/Lovenox
Total time spent on today's encounter was 50 minutes which included time spent in counseling the patient/family regarding diagnosis and treatment plan as listed above, goals of care, and symptom management. Case was discussed with nursing staff,
specialists, and care coordinators/case management. All labs and imaging personally reviewed by me. Remainder the time spent in detailed review of previous records, lab data, imaging, and other medical provider documentation.
Anticipated Discharge: > 48 hours
Subjective/Interval History
-
Date of Service: March 09, 2024
Reports abd pain.
Objective Data
-
Labs:
Laboratory Results
03/08/24 03/09/24 03/09/24
22:36 01:24 04:02
WBC 5.7
Hgb 12.4
Hct 36.4 L
Plt Count 196
Sodium 122 L Cancelled 133 L D
Potassium 3.8 Cancelled 3.8
Chloride 90 L Cancelled 100
Carbon Dioxide 27 Cancelled 28
BUN 8 Cancelled 7
Creatinine 0.6 Cancelled 0.5 L
Glucose 125 H Cancelled 101 H
Calcium 7.6 L D Cancelled 8.4
03/09/24 03/09/24 03/09/24
07:49 13:24 17:24
WBC
Hgb
Hct
Plt Count
Sodium Pending Pending Pending
Potassium Pending Pending Pending
Chloride Pending Pending Pending
Carbon Dioxide Pending Pending Pending
BUN Pending Pending Pending
Creatinine Pending Pending Pending
Glucose Pending Pending Pending
Calcium Pending Pending Pending
03/09/24
21:24
WBC
Hgb
Hct
Plt Count
Sodium Pending
Potassium Pending
Chloride Pending
Carbon Dioxide Pending
BUN Pending
Creatinine Pending
Glucose Pending
Calcium Pending
Vital Signs:
Vital Signs
Temp Pulse Resp BP Pulse Ox
98.3 F 110 14 110/76 96
03/09/24 03:00 03/09/24 06:00 03/09/24 06:00 03/09/24 06:00 03/09/24 06:00
I&O
03/08/24 03/09/24 03/10/24
06:59 06:59 06:59
Intake Total 200 / 200
Output Total 3350 / 3350
Balance -3150 / -3150
[2024-03-09] MEDS: MORPHINE SULFATE 2 MG IV ×2 (08:13→13:22)
--- NOTE | 2024-03-09 08:13 | W.PN.UPDATE ---
Update Note
Progress Note Update
Case discussed with Dr. Wills. Will give 1L D5W over 2 hours to bring Na down a bit with rapid rise in Na.
[2024-03-09] MEDS: NSS with KCL 20 MEQ IV (08:31)
[2024-03-09] MEDS: D5W 1000 IV (08:36)
[2024-03-09] MEDS: ZOSYN 50 IV ×2 (09:00→15:28)
[2024-03-09 09:10] LABS: Blood Urea Nitrogen 7 mg/dl (7-17); Calcium 8.3 mg/dl (8.4-10.2); Carbon Dioxide 29 mmol/L (22-30); Chloride 103 mmol/L (98-107); Estimated Creatinine Clearance 113 ml/min; Glucose 99 mg/dl (70-99); Sodium 134 mmol/L (135-145); eGFR > 60.00
--- NOTE | 2024-03-09 10:58 | W.PN.GS2 ---
Today's Communication / Plan
-
NGT/NPO/IVF
IV abx
Assessment / Plan
-
54F with dev delay POD1 s/p Aj's for sigmoid volvulus
Low grade fevers, tachycardia noted
No leukocytosis, Hb stable
Minimal NGT output
Plan:
Cont NGT decompression today, OK to clamp and give PO meds
If continued stoma output anticipate DC NGT tomorrow and adv diet
NPO,
Cont abx for 72 hrs post op
Ambulate
PRN pain control
DVT ppx
Subjective Data
-
Date of Service: March 09, 2024
Low grade temps and tachycardia persist, normotensive, pain controlled, does not participate much with care
Objective Data
-
Intake and Output
03/08/24 03/09/24 03/10/24
06:59 06:59 06:59
Intake Total 200 / 200 105 / 105
Output Total 3350 / 3350
Balance -3150 / -3150 105 / 105
Intake:
IV fluids (Total) 200 / 200 105 / 105
Normosol 200 / 200
Amount instilled into GI Tube ( 0 / 0
Total)
[place] Sump 0 / 0
Output:
Gastrointestinal tube output ( 0 / 0
Total)
[place] Sump 0 / 0
Urine, Alba 3350 / 3350
Vital Signs
Temp Pulse Resp BP Pulse Ox
100.9 F H 118 17 108/71 95
03/09/24 07:05 03/09/24 08:00 03/09/24 08:00 03/09/24 08:00 03/09/24 08:00
Lab Results
03/09/24 04:02
Calcium 8.3 mg/dl (8.4-10.2) L 12/26/24 07:49
Total Bilirubin 0.9 mg/dl (0.2-1.3) 03/08/24 12:
AST 36 U/L (14-36) 03/08/24 12:
ALT 16 U/L (0-35) 03/08/24 12:
Alkaline Phosphatase 67 U/L (38-126) 03/08/24 12:
Total Protein 6.9 g/dl (6.3-8.2) 03/08/24 12:
Albumin 4.2 g/dl (3.5-5.0) 03/08/24 12:
Physical Exam
-
Gen: NAD
Abd: soft, approp ttp, aquacel with strikethrough, stoma PPV with brown stool and gas in bag
--- NOTE | 2024-03-09 12:10 | W.PN.NEPH.PH ---
Today's Communication / Plan
-
Status post 1 L D5W for mild overcorrection of hyponatremia
Assessment/Plan
-
IMP:
Acute large bowel obstruction due to sigmoid volvulus
Severe Hyponatremia
Hypothyroidism
Hypokalemia
Developmental delay
Osteopenia noted on CT
Hepatic hypodense lesions noted on CT
Ovarian cyst /lesion 10cm -on CT
Plan:
A/w abd distension and vomiting
CT noted sigmoid volvulus-NPO, GI and surg consulted
hyponatremia-no previous labs to compare
ADH mediated U osmo 678, U na 30
possible prerenal-hypovolemic clinically
goal of correction 6-8meq/day
note she is on multiple psychotropic meds
monitor UOP
CT abd noted multiple other lesions
bp stable
Initial sodium 120 at 1300 hrs. on 03/08 corrected to 133, ordered 1 L D5W
-
-
Date of Service: March 09, 2024
CC / HPI / ROS
-
Chief Complaint:
Hyponatremia
History of Present Illness:
Initial sodium 120 corrected to 133 status post 1 L D5W pending repeat labs
Review of Systems:
No distress
No chest pain or shortness of breath
Labs
-
Labs:
WBC 5.7 10^3/uL (4.8-10.8) 03/09/24 04:02
RBC 4.12 10^6/uL (4.20-5.40) L 03/09/24 04:02
Hgb 12.4 g/dL (12.0-16.0) 03/09/24 04:02
Hct 36.4 % (37.0-47.0) L 03/09/24 04:02
Plt Count 196 10^3/uL (130-400) 03/09/24 04:02
eGFR > 60.00 03/09/24 07:49
Albumin 4.2 g/dl (3.5-5.0) 03/08/24 12:28
Physical Exam
-
Vital Signs:
Vital Signs
Temp Pulse Resp BP Pulse Ox
100.9 F H 107 14 104/69 96
03/09/24 07:05 03/09/24 10:00 03/09/24 10:00 03/09/24 10:00 03/09/24 10:00
Respiratory:: Bilateral: CTA
Lung Excursion:: Normal
Abdomen:: Soft
Bowel Sounds:: Decreased
Extremity Edema:: None: Bilateral:
Alba Catheter: Yes
[2024-03-09 12:38] LABS: Blood Urea Nitrogen 6 mg/dl (7-17); Carbon Dioxide 27 mmol/L (22-30); Chloride 99 mmol/L (98-107); Estimated Creatinine Clearance 113 ml/min; Glucose 104 mg/dl (70-99); Magnesium 2.1 mg/dl (1.6-2.3); Potassium 3.6 mmol/L (3.5-5.1); Sodium 131 mmol/L (135-145); eGFR > 60.00
--- NOTE | 2024-03-09 15:40 | PTCARENOTE ---
Dr. Hayes made aware of patients temp of 100.3 F, HR in 120's, and BP 90/62. Morphine given for pain per MAR. No new orders at this time. Care ongoing.
--- NOTE | 2024-03-09 17:30 | CM ---
Patient with Hx developmental delay who is s/p Aj's procedure - colostomy. Low grade fevers, tachycardia today. Room air. Receiving IV MS prn, IV Abx, IV Valproate Sodium. NPO/NGT/IVF.
Phone call to Ana María, patient's sister; left message requesting callback for d/c planning.
Plan follow up with patient's sister for Initial Assessment.
[2024-03-09] MEDS: LEVOTHROID 37.5 MCG IV (18:24)
[2024-03-09] MEDS: LOVENOX 40 MG SC (18:25)
--- NOTE | 2024-03-09 18:36 | PTCARENOTE ---
Patient alert and oriented to self. Patient has flat affect and is forgetful. Patient has hx of developmental delay. Patient on 2L NC. Sinus tachy on monitor. R nare NG tube with no output throughout shift. Alba draining yellow urine. Colostomy
putting out liquid brown stool. Call kahn within reach, bed in lowest position, and bed wheels locked.
--- NOTE | 2024-03-09 23:15 | PTCARENOTE ---
Pt aox1 to self forgetful Pt w/ flat affect and hx of developmental delay. Patient on 2L NC sat 95%. Sinus tachy on monitor. R nare NG tube to low intermittent suction. Alba draining yellow urine. Colostomy stoma pink and budded putting out liquid
brown stool. Hygiene completed (see MAY). Pt resting in bed with bed alarm on
[2024-03-10] VITALS (12 sets, daily range): BP systolic 101–136; BP diastolic 68–89; BMI 22.7
[2024-03-10] MEDS: ZOSYN 50 IV ×5 (00:15→21:17)
[2024-03-10] MEDS: DEPACON 55 MG IV ×2 (01:17→22:46)
[2024-03-10 05:55] LABS: Hematocrit 33.3 % (37.0-47.0); Hemoglobin 11.3 g/dL (12.0-16.0); Mean Corp Hgb Conc. 33.9 g/dL (33.0-37.0); Mean Corpuscular Hgb 30.5 pg (27.0-31.0); Mean Corpuscular Volume 89.8 fL (81.0-99.0); Mean Platelet Volume 10.6 fL (7.4-10.4); Platelet Count 175 10^3/uL (130-400); Red Blood Cell Count 3.71 10^6/uL (4.20-5.40); Red Cell Dist. Width 14.7 % (11.5-14.5); White Blood Cell Count 10.1 10^3/uL (4.8-10.8)
[2024-03-10 06:22] LABS: Blood Urea Nitrogen 11 mg/dl (7-17); Calcium 8.5 mg/dl (8.4-10.2); Carbon Dioxide 29 mmol/L (22-30); Chloride 100 mmol/L (98-107); Estimated Creatinine Clearance 113 ml/min; Glucose 80 mg/dl (70-99); Potassium 3.2 mmol/L (3.5-5.1); Sodium 134 mmol/L (135-145); eGFR > 60.00
--- NOTE | 2024-03-10 08:21 | PN.CDI ---
CDI
- -
CDI:
Physician Documentation Request
Admit Date: 03/08/24 17:07
Dear Doctor Jermaine,
Please review the following and provide your response in the progress notes.
Clinical Indicators:
PN, 03/08
#Operative Findings: Severely distended colon, worst at sigmoid,
#...with torsion point low in the pelvis; patchy ischemia around the torsion point;
#...rectal stump stapled off distal to ischemic area and tagged with 2-0 prolene; descending end colostomy created, brisk bleeding at cut edge of stoma,
#...virtually no contamination; roughly 50cm colon resected,
#...large redundant transverse colon noted
PN, 03/09
#-fever this AM could be post-op related, ...
#...will start Zosyn after discussion with Dr. Hayes
Based on the above and your clinical assessment, please clarify in the progress notes, the appropriate diagnosis, if significant, that supports the above abnormalities and additional evaluation, monitoring and/or treatment rendered:
Localized peritonitis
Other (please specify)
Use of terms such as suspected, likely, concern for, or probable (associated with a specific diagnosis that is being evaluated, monitored, or treated as if it exists) are acceptable and can be coded in the inpatient setting, when documented at the
time of discharge.
Thank you,
Wanda Manriquez
CDI Specialist
Please use your independent medical judgment in providing your response.
--- NOTE | 2024-03-10 08:27 | PN.CDI ---
CDI
- -
CDI:
Physician Documentation Request
Admit Date: 03/08/24 17:07
Dear Doctor Jermaine,
Please review the following and provide your response in the progress notes.
Clinical Indicators:
PN, 03/09
#Severe Hypotonic Hyponatremia:
#...-Likely due to intraabdominal pathology, including rapid dehydration,
#...and psychotropic meds
#-UOsm 678, SOsm 253, Adryan 30
Nephrology, PN, 03/09
#hyponatremia-no previous labs to compare
#ADH mediated U osmo 678, U na 30
Laboratory Tests
03/08/24 03/08/24 03/09/24
12:28 22:36 04:02
Sodium 120 L 122 L 133 L D
03/09/24 03/09/24 03/10/24
07:49 11:34 05:31
Sodium 134 L 131 L 134 L
Laboratory Tests
03/08/24
12:28
Serum Osmolality 253 L
Based on the above and your clinical assessment, please clarify in the progress notes, the appropriate diagnosis, if significant, that supports the above abnormalities and additional evaluation, monitoring and/or treatment rendered:
SIADH
Inappropriate secretion ADH
Chronic hyponatremia without SIADH
Other(please specify)
Use of terms such as suspected, likely, concern for, or probable (associated with a specific diagnosis that is being evaluated, monitored, or treated as if it exists) are acceptable and can be coded in the inpatient setting, when documented at the
time of discharge.
Thank you,
Wanda Manriquez RN BSN CCDS
CDI Specialist
please contact via tiger text
Please use your independent medical judgment in providing your response.
--- NOTE | 2024-03-10 08:38 | PN.CDI ---
CDI
- -
CDI:
Physician Documentation Request
Admit Date: 03/08/24 17:07
Dear Doctor Jermaine,
Please review the following and provide your response in the progress notes.
Clinical Indicators:
PN, 03/08
#Operative Findings: Severely distended colon, worst at sigmoid,
#...with torsion point low in the pelvis; patchy ischemia around the torsion point;
#...rectal stump stapled off distal to ischemic area and tagged with 2-0 prolene; descending end colostomy created, brisk bleeding at cut edge of stoma,
#...virtually no contamination; roughly 50cm colon resected,
#...large redundant transverse colon noted
PN, 03/09
#-fever this AM could be post-op related, ...
#...will start Zosyn after discussion with Dr. Hayes
Based on the above and your clinical assessment, please clarify in the progress notes, the appropriate diagnosis, if significant, that supports the above abnormalities and additional evaluation, monitoring and/or treatment rendered:
Localized peritonitis
Other (please specify)
Use of terms such as suspected, likely, concern for, or probable (associated with a specific diagnosis that is being evaluated, monitored, or treated as if it exists) are acceptable and can be coded in the inpatient setting, when documented at the
time of discharge.
Thank you,
Wanda Manriquez RN BSN CCDS
CDI Specialist
please contact via tiger text
Please use your independent medical judgment in providing your response.
[2024-03-10] MEDS: KCL 270 MEQ IV (09:02)
[2024-03-10] MEDS: DEPACON 52.5 MG IV (09:37)
--- NOTE | 2024-03-10 10:14 | W.PN.NEPH.PH ---
Today's Communication / Plan
-
IVF ok
Assessment/Plan
-
IMP:
Acute large bowel obstruction due to sigmoid volvulus
Severe Hyponatremia
Hypothyroidism
Hypokalemia
Developmental delay
Osteopenia noted on CT
Hepatic hypodense lesions noted on CT
Ovarian cyst /lesion 10cm -on CT
Plan:
follow BMP
IVF NSS ok
replete K
-
-
Date of Service: March 10, 2024
CC / HPI / ROS
-
Chief Complaint:
Hyponatremia
History of Present Illness:
Na up to 134
BP stable low
K low 3.2
Review of Systems:
No distress
No chest pain or shortness of breath
Labs
-
Labs:
WBC 10.1 10^3/uL (4.8-10.8) 03/10/24 05:31
RBC 3.71 10^6/uL (4.20-5.40) L 03/10/24 05:31
Hgb 11.3 g/dL (12.0-16.0) L 03/10/24 05:31
Hct 33.3 % (37.0-47.0) L 03/10/24 05:31
Plt Count 175 10^3/uL (130-400) 03/10/24 05:31
Sodium 134 mmol/L (135-145) L 03/10/24 05:31
Potassium 3.2 mmol/L (3.5-5.1) L 03/10/24 05:31
Chloride 100 mmol/L (98-107) 03/10/24 05:31
Carbon Dioxide 29 mmol/L (22-30) 03/10/24 05:31
BUN 11 mg/dl (7-17) 03/10/24 05:31
Creatinine 0.6 mg/dL (0.6-1.0) 03/10/24 05:31
eGFR > 60.00 03/10/24 05:31
Glucose 80 mg/dl (70-99) 03/10/24 05:31
Calcium 8.5 mg/dl (8.4-10.2) 03/10/24 05:31
Albumin 4.2 g/dl (3.5-5.0) 03/08/24 12:28
Physical Exam
-
Vital Signs:
Vital Signs
Temp Pulse Resp BP Pulse Ox
99 F 105 15 105/72 97
03/10/24 07:05 03/10/24 10:00 03/10/24 10:00 03/10/24 10:00 03/10/24 10:00
Cardiovascular:: Regular rate and rhythm
Respiratory:: Bilateral: Coarse
Lung Excursion:: Normal
Abdomen:: Nontender and Soft
Bowel Sounds:: Normal
Extremity Edema:: None: Bilateral:
[2024-03-10] MEDS: NSS 1000 IV ×2 (10:47→18:00)
--- NOTE | 2024-03-10 11:09 | W.PN.HOSP.TC ---
Today's Communication/Plan
-
see bold
Assessment / Plan
Assessment / Plan
Gen: NAD, Awake and alert
Eyes: EOMI, PERRLA, no scleral icterus.
Neck: supple.
CV: Continues to remain tachy, reg, rhythm, +S1/S2, no m/r/g.
Resp: CTAB anteriorly, no rales, wheezes, or rhonchi.
Abd: Hypoactive BS, soft, diffuse tenderness to palpation, mild-mod abdominal distention
Skin: No rashes.
Neuro: CN 2-12 intact, non-focal.
Psych: Normal mood and affect.
CT A/P: Large bowel obstruction with pronounced dilation of the colon extending to the distal sigmoid. There is apparent twisting of the sigmoid colon, seen best on coronal imaging, highly suspicious for sigmoid volvulus. There is a 10.0 x 8.3 x 8.4
cm cystic focus within the presacral/retrouterine space which may represent cystic presacral or ovarian lesion, or possible loculated fluid. There is an additional 3.4 cm hypodense lesion within the right ovary. Further evaluation with dedicated
pelvic ultrasound is recommended. There are numerous hypodense hepatic lesions with the largest measuring 8.9 cm. These appear to demonstrate peripheral, nodular discontinuous enhancement and may represent large hemangiomas although metastatic
disease is possible. Recommend MRI abdomen for further evaluation. There are numerous mildly hypodense lesions within the spleen which measure up to 1.4 cm which are indeterminant on this examination however may represent hemangiomas, although
metastasis are also possible. Further evaluation with MRI abdomen should be considered. There is elevation of the left hemidiaphragm with left basilar atelectasis. There is small volume intrahepatic free fluid. Diffuse osteopenia with scattered
sclerotic foci, possible bone islands.
Acute large bowel obstruction due to sigmoid volvulus:
-s/p Exploratory laparotomy, sigmoidectomy, creation end colostomy on 03/08/24
-NPO/IVFs
-NGT to low-intermittent suction
-pain control
-will need further imaging to better assess other findings on the CT scan of the abdomen pelvis. Concern for underlying malignancy.
-fever 03/09/24AM was likely post-op localized peritonitis, cont Zosyn
Severe Hypotonic Hyponatremia:
-Likely due to intraabdominal pathology, including rapid dehydration, and psychotropic meds as well as component of SIADH
-UOsm 678, SOsm 253, Adryan 30
-renal following
-1L D5W over 2 hours given 03/09/24AM as per renal
-Na now 134
Other problems:
Hypothyroidism: TSH normal, cont IV synthroid
Hypokalemia, resolved
FULL/Lovenox
Total time spent on today's encounter was 51 minutes which included time spent in counseling the patient/family regarding diagnosis and treatment plan as listed above, goals of care, and symptom management. Case was discussed with nursing staff,
specialists, and care coordinators/case management. All labs and imaging personally reviewed by me. Remainder the time spent in detailed review of previous records, lab data, imaging, and other medical provider documentation.
Anticipated Discharge: > 48 hours
Subjective/Interval History
-
Date of Service: March 10, 2024
Patient nods to every question asked.
Objective Data
-
Labs:
Laboratory Results
03/10/24
05:31
WBC 10.1
Hgb 11.3 L
Hct 33.3 L
Plt Count 175
Sodium 134 L
Potassium 3.2 L
Chloride 100
Carbon Dioxide 29
BUN 11
Creatinine 0.6
Glucose 80
Calcium 8.5
Vital Signs:
Vital Signs
Temp Pulse Resp BP Pulse Ox
99 F 105 15 105/72 97
03/10/24 07:05 03/10/24 10:00 03/10/24 10:00 03/10/24 10:00 03/10/24 10:00
I&O
03/09/24 03/10/24 03/11/24
06:59 06:59 06:59
Intake Total 200 / 200 1155 / 1155
Output Total 3350 / 3350 1100 / 1100 125 / 125
Balance -3150 / -3150 55 / 55 -125 / -125
--- NOTE | 2024-03-10 12:23 | PTCARENOTE ---
Nurse from [facility] rehab facility called this RN for an update. Update given, questions answered. Informed by [facility] nurse that pt was supposed to get a CT chest/abdomen/pelvis with contrast outpatient here at to reeval nodules in spleen/liver/ovaries
given hx of breast CA. Nurse asked if we were able to do it during patients admission. Message relayed to Dr Dean.
--- NOTE | 2024-03-10 13:10 | PN.CDI ---
CDI
- -
CDI:
Physician Documentation Request
Admit Date: 03/08/24 17:07
Dear Doctor Abigail,
Please review the following and provide your response in the progress notes.
Clinical Indicators:
Post Op Note, 03/08
#Operative Findings:
#...Severely distended colon, worst at sigmoid, with torsion point low in the pelvis;
#...patchy ischemia around the torsion point;
#...rectal stump stapled off distal to ischemic area and tagged with 2-0 prolene; #descending end colostomy created, brisk bleeding at cut edge of stoma, virtually no #contamination; roughly 50cm colon resected, large redundant transverse colon
noted
PN, 03/09
#...POD1 s/p Aj's for sigmoid volvulus
Based on the above and your clinical assessment, please clarify in the progress notes, the appropriate diagnosis, if significant, that supports the above abnormalities and additional evaluation, monitoring and/or treatment rendered:
Partial intestinal obstruction
Complete intestinal obstruction
Acute ischemia large intestine
Other(please specify)
Use of terms such as suspected, likely, concern for, or probable (associated with a specific diagnosis that is being evaluated, monitored, or treated as if it exists) are acceptable and can be coded in the inpatient setting, when documented at the
time of discharge.
Thank you,
Wanda Manriquez RN BSN CCDS
CDI Specialist
please contact via tiger text
Please use your independent medical judgment in providing your response.
[2024-03-10] MEDS: MORPHINE SULFATE 2 MG IV ×2 (15:03→21:13)
--- NOTE | 2024-03-10 15:29 | CM ---
Patient who resides in [facility] with Hx developmental delay who is s/p Aj's procedure - colostomy. O2 2L. Receiving IV MS prn, IV Abx, IV Valproate Sodium. NPO/NGT/IVF. [facility] Nurse for colostomy pending. PT/OT
Lois pendng.
Spoke with Jovana Quinones, Proof Operator [facility] (ph [phone]) & Lina Caregiver [facility] at patient's Residential;
the patient resides in the [facility] in [place] which has 3 residents, and is a 1 story house with ramp at entrance.
The patient was A/O, conversant, independent in ADLs and ambulation, using her RW when she goes out.
Per Jovana, patient has ongoing gait issues and unsteadiness on her feet.
She is currently being seen by [facility] for PT/OT.
There is also a [facility] Nurse that occasionally visits, and Bus System Operator Peace.
The phone for nurse report to Jovana at ph [phone] and fax # will be provided.
Jovana is planning on doing on site visit today to help the patient feel more comfortable being here.
Jovana would like [facility] at d/c and agrees to their SN for ostomy care/staff training, as well as PT/OT as needed.
Plan follow patient's O2 needs, diet needs, mobility needs. Follow up after seen by PT/OT and make referral to Leonor.
Plan return to [facility] with Leonor MAS.
--- NOTE | 2024-03-10 16:07 | PTOTSP ---
Dysphagia Evaluation
No signs of oral/pharyngeal dysphagia. Feeding related behaviors (i.e., large bolus size with solids, filling oral cavity before swallowing) elevate dysphagia risk.
Recommend:
1. Regular, Thin Liquids when medically cleared
2. Medications 1 at a time with sips of thin liquids
3. Strategies: Full supervision, upright to 90 degrees, small single sips/bites, slow rate, remain upright for at least 30 minutes after PO intake
No further dysphagia tx warranted. Please reconsult as appropriate.
--- NOTE | 2024-03-10 16:46 | WOUNDNOTE ---
[facility] RN NOTE: Patient visited for new ostomy. TT Karl Littlejohn, ok'd to remove midline dressing. Small skin tear noted on lateral aspect of surgical wound. This area was cleaned with normal saline and covered with adaptic and dry dressing. Midline
incision with nickie, no drainage or erythema noted. Ostomy pink, budded, possibly prolapsed. Karl Littlejohn made aware of possible prolapse. Ostomy changed with Danial barrier #[id number] and pouch # [id number]. Ostomy supplies at bedside. Patient lives
in nursing home and will need assistance with ostomy care. Will continue to follow with patient during in-patient stay.
--- NOTE | 2024-03-10 17:36 | W.PN.GS2 ---
Today's Communication / Plan
-
DC NG, keep Alba.
Start clears if cleared for thin liquids by speech.
Out of bed and ambulate.
Assessment / Plan
-
54F with dev delay POD2 s/p Aj's for sigmoid volvulus
Clinically improved
Plan:
Remove NG, okay for clears if cleared by speech
Continue Alba
Cont abx for 72 hrs post op
Ambulate
PRN pain control
DVT ppx
Time Spent
Total Time Spent with Patient (in minutes): 15
Subjective Data
-
Date of Service: March 10, 2024
Interval Events:
Patient asleep, somewhat difficult to arouse. Per nurse, no acute events overnight. Slept okay. Pain Controlled. Denies Nausea/Vomiting, +bowel function. Tolerating diet.
Objective Data
-
Intake and Output
03/09/24 03/10/24 03/11/24
06:59 06:59 06:59
Intake Total 200 / 200 1155 / 1155
Output Total 3350 / 3350 1100 / 1100 400 / 400
Balance -3150 / -3150 55 / 55 -400 / -400
Intake:
IV fluids (Total) 200 / 200 1155 / 1155
Normosol 200 / 200
Amount instilled into GI Tube ( 0 / 0
Total)
Winton Sump 0 / 0
Output:
Liquid stool amount 100 / 100 125 / 125
Colostomy 100 / 100 125 / 125
Gastrointestinal tube output ( 0 / 0
Total)
Winton Sump 0 / 0
Urine, Alba 3350 / 3350 1000 / 1000 275 / 275
Vital Signs
Temp Pulse Resp BP Pulse Ox
98.6 F 126 19 136/89 93
03/10/24 15:05 03/10/24 16:00 03/10/24 16:00 03/10/24 16:00 03/10/24 16:00
Lab Results
03/10/24 05:31
03/10/24 05:31
Calcium 8.5 mg/dl (8.4-10.2) 03/10/24 05:31
Magnesium Cancelled 03/09/24 21:24
Total Bilirubin 0.9 mg/dl (0.2-1.3) 03/08/24 12:
AST 36 U/L (14-36) 03/08/24 12:
ALT 16 U/L (0-35) 03/08/24 12:28
Alkaline Phosphatase 67 U/L (38-126) 03/08/24 12:28
Total Protein 6.9 g/dl (6.3-8.2) 03/08/24 12:
Albumin 4.2 g/dl (3.5-5.0) 03/08/24 12:28
Physical Exam
-
GENERAL/NEURO: Awake, Alert, no distress
CHEST: Unlabored breathing on RA
ABDOMEN: Soft, Non-Tender, Non-Distended ostomy is pink patent and productive of brown stool, slightly prolapsed
[2024-03-10] MEDS: LOVENOX 40 MG SC (17:59)
[2024-03-10] MEDS: LEVOTHROID 37.5 MCG IV (17:59)
[2024-03-11] VITALS (18 sets, daily range): BP systolic 109–156; BP diastolic 68–122; PULSE 103–104; O2SAT 97–98; BMI 23.1
[2024-03-11] MEDS: NSS 1000 IV ×3 (03:22→21:31)
[2024-03-11] MEDS: ZOSYN 50 IV ×4 (03:23→21:31)
[2024-03-11 05:14] LABS: Hematocrit 29.2 % (37.0-47.0); Hemoglobin 9.8 g/dL (12.0-16.0); Mean Corp Hgb Conc. 33.6 g/dL (33.0-37.0); Mean Corpuscular Hgb 30.4 pg (27.0-31.0); Mean Corpuscular Volume 90.7 fL (81.0-99.0); Mean Platelet Volume 10.8 fL (7.4-10.4); Platelet Count 197 10^3/uL (130-400); Red Blood Cell Count 3.22 10^6/uL (4.20-5.40); Red Cell Dist. Width 14.7 % (11.5-14.5); White Blood Cell Count 8.8 10^3/uL (4.8-10.8)
[2024-03-11 05:36] LABS: Blood Urea Nitrogen 11 mg/dl (7-17); Calcium 8.2 mg/dl (8.4-10.2); Carbon Dioxide 29 mmol/L (22-30); Chloride 103 mmol/L (98-107); Estimated Creatinine Clearance 113 ml/min; Glucose 93 mg/dl (70-99); Potassium 2.8 mmol/L (3.5-5.1); Sodium 135 mmol/L (135-145); eGFR > 60.00
[2024-03-11] MEDS: DEPACON 52.5 MG IV (08:28)
[2024-03-11] MEDS: MORPHINE SULFATE 2 MG IV ×3 (08:29→23:45)
--- NOTE | 2024-03-11 08:37 | W.PN.HOSP.TC ---
Today's Communication/Plan
-
see bold
Assessment / Plan
Assessment / Plan
Gen: NAD, Awake and alert
Eyes: EOMI, PERRLA, no scleral icterus.
Neck: supple.
CV: tachy, reg, rhythm, +S1/S2, no m/r/g.
Resp: remains CTAB anteriorly, no rales, wheezes, or rhonchi.
Abd: +BS, soft, NT to light palpation, mild-mod abdominal distention
Skin: No rashes.
Neuro: CN 2-12 intact, non-focal.
Psych: Normal mood and affect.
CT A/P: Large bowel obstruction with pronounced dilation of the colon extending to the distal sigmoid. There is apparent twisting of the sigmoid colon, seen best on coronal imaging, highly suspicious for sigmoid volvulus. There is a 10.0 x 8.3 x 8.4
cm cystic focus within the presacral/retrouterine space which may represent cystic presacral or ovarian lesion, or possible loculated fluid. There is an additional 3.4 cm hypodense lesion within the right ovary. Further evaluation with dedicated
pelvic ultrasound is recommended. There are numerous hypodense hepatic lesions with the largest measuring 8.9 cm. These appear to demonstrate peripheral, nodular discontinuous enhancement and may represent large hemangiomas although metastatic
disease is possible. Recommend MRI abdomen for further evaluation. There are numerous mildly hypodense lesions within the spleen which measure up to 1.4 cm which are indeterminant on this examination however may represent hemangiomas, although
metastasis are also possible. Further evaluation with MRI abdomen should be considered. There is elevation of the left hemidiaphragm with left basilar atelectasis. There is small volume intrahepatic free fluid. Diffuse osteopenia with scattered
sclerotic foci, possible bone islands.
Acute large bowel obstruction due to sigmoid volvulus:
-s/p Exploratory laparotomy, sigmoidectomy, creation end colostomy on 03/08/24
-was NPO/IVFs with NGT to low-intermittent suction, NGT removed 03/10/24
-pain control
-will need further imaging to better assess other findings on the CT scan of the abdomen pelvis. Concern for underlying malignancy.
-fever 03/09/24AM was likely post-op localized peritonitis, cont Zosyn
-advanced to clears
Severe Hypotonic Hyponatremia:
-Likely due to intraabdominal pathology, including rapid dehydration, and psychotropic meds as well as component of SIADH
-UOsm 678, SOsm 253, Adryan 30
-renal following
-1L D5W over 2 hours given 03/09/24AM as per renal
-Na now 135, resolved
Other problems:
Hypothyroidism: TSH normal, cont IV synthroid
Hypokalemia, resolved
FULL/Lovenox
Anticipated Discharge: > 48 hours
Subjective/Interval History
-
Date of Service: March 11, 2024
Pt still c/o abd pain.
Objective Data
-
Labs:
Laboratory Results
03/11/24 03/11/24
04:42 12:00
WBC 8.8
Hgb 9.8 L Pending
Hct 29.2 L Pending
Plt Count 197
Sodium 135
Potassium 2.8 L
Chloride 103
Carbon Dioxide 29
BUN 11
Creatinine 0.5 L
Glucose 93
Calcium 8.2 L
Vital Signs:
Vital Signs
Temp Pulse Resp BP Pulse Ox
98.3 F 104 13 109/76 94
03/10/24 19:25 03/11/24 06:00 03/11/24 06:00 03/11/24 06:00 03/11/24 04:00
I&O
03/10/24 03/11/24 03/12/24
06:59 06:59 06:59
Intake Total 1155 / 1155 240 / 240
Output Total 1100 / 1100 650 / 650
Balance 55 / 55 -410 / -410
[2024-03-11] MEDS: KCL 40 MEQ PO (10:04)
[2024-03-11] MEDS: KCL 270 MEQ IV ×2 (10:05→16:51)
--- NOTE | 2024-03-11 10:07 | W.PN.NEPH.PH ---
Today's Communication / Plan
-
K
Assessment/Plan
-
IMP:
Acute large bowel obstruction due to sigmoid volvulus
Severe Hyponatremia
Hypothyroidism
Hypokalemia
Developmental delay
Osteopenia noted on CT
Hepatic hypodense lesions noted on CT
Ovarian cyst /lesion 10cm -on CT
Plan:
follow BMP
IVF NSS ok
replete K
check Mag
-
-
Date of Service: March 11, 2024
CC / HPI / ROS
-
Chief Complaint:
Hyponatremia
History of Present Illness:
Na up to 135
BP stable low
K low 2.8
eating clears now
Review of Systems:
No distress
No chest pain or shortness of breath
Labs
-
Labs:
WBC 8.8 10^3/uL (4.8-10.8) 03/11/24 04:42
RBC 3.22 10^6/uL (4.20-5.40) L 03/11/24 04:42
Plt Count 197 10^3/uL (130-400) 03/11/24 04:42
Sodium 135 mmol/L (135-145) 03/11/24 04:42
Potassium 2.8 mmol/L (3.5-5.1) L 03/11/24 04:42
Chloride 103 mmol/L (98-107) 03/11/24 04:42
Carbon Dioxide 29 mmol/L (22-30) 03/11/24 04:42
BUN 11 mg/dl (7-17) 03/11/24 04:42
Creatinine 0.5 mg/dL (0.6-1.0) L 03/11/24 04:42
eGFR > 60.00 03/11/24 04:42
Glucose 93 mg/dl (70-99) 03/11/24 04:42
Calcium 8.2 mg/dl (8.4-10.2) L 03/11/24 04:42
Albumin 4.2 g/dl (3.5-5.0) 03/08/24 12:28
Physical Exam
-
Vital Signs:
Vital Signs
Temp Pulse Resp BP Pulse Ox
98.3 F 104 13 109/76 94
03/10/24 19:25 03/11/24 06:00 03/11/24 06:00 03/11/24 06:00 03/11/24 04:00
Cardiovascular:: Regular rate and rhythm
Respiratory:: Bilateral: Coarse
Lung Excursion:: Normal
Abdomen:: Nontender and Soft
Bowel Sounds:: Normal
Extremity Edema:: None: Bilateral:
--- NOTE | 2024-03-11 11:46 | W.PN.GS2 ---
Today's Communication / Plan
-
repeat h/h
continue clears
Assessment / Plan
-
54F with h/o dev delay now POD 3 s/p Aj's for sigmoid volvulus
Mild tachycardia, stable BP and afebrile
Acute anemia present, suspect secondary to fluid shifts/hemodilution and expected intraop losses. Stool nonbloody.
Clinically improved overall, stoma now productive of stool/minimal stool but still with distention and low PO intake
Plan:
Continue clears, ACOUSTICAL CARPENTER following
Continue Alba
IVF as per nephrology
Cont abx for 72 hrs post op
Repeat h/h this afternoon and transfuse if needed
Ambulate as able
PRN pain control
PPI for GI ppx
DVT ppx with lovenox, will hold if h/h continues to drop. SCDS for mechanical ppx
Subjective Data
-
Date of Service: March 11, 2024
Patient seen and examined at bedside with Dr. Boles. Reports some pain at incisions. Denies n/v.
Objective Data
-
Intake and Output
03/10/24 03/11/24 03/12/24
06:59 06:59 06:59
Intake Total 1155 / 1155 240 / 240
Output Total 1100 / 1100 650 / 650
Balance 55 / 55 -410 / -410
Intake:
Oral fluids 240 / 240
IV fluids (Total) 1155 / 1155
Output:
Liquid stool amount 100 / 100 125 / 125
Colostomy 100 / 100 125 / 125
Urine, Alba 1000 / 1000 525 / 525
Vital Signs
Temp Pulse Resp BP Pulse Ox
98.4 F 104 13 109/76 94
03/11/24 11:10 03/11/24 06:00 03/11/24 06:00 03/11/24 06:00 03/11/24 04:00
Calcium 8.2 mg/dl (8.4-10.2) L 03/11/24 04:42
Magnesium Cancelled 03/09/24 21:24
Total Bilirubin 0.9 mg/dl (0.2-1.3) 03/08/24 12:
AST 36 U/L (14-36) 03/08/24 12:
ALT 16 U/L (0-35) 03/08/24 12:
Alkaline Phosphatase 67 U/L (38-126) 03/08/24 12:
Total Protein 6.9 g/dl (6.3-8.2) 03/08/24 12:
Albumin 4.2 g/dl (3.5-5.0) 03/08/24 12:
Physical Exam
-
NAD
ABD soft, distended. Stoma with edema but pink/viable with flatus and small loose stool in appliance
Incision with intact staple line, no erythema
Alba with dark nellie urine
[2024-03-11] MEDS: NSS (PRESERVATIVE FREE) 10 ML IV (12:59)
[2024-03-11] MEDS: PROTONIX IV 40 MG IV (12:59)
[2024-03-11 14:48] LABS: Hematocrit 31.5 % (37.0-47.0); Hemoglobin 10.6 g/dL (12.0-16.0)
[2024-03-11 15:03] LABS: Blood Urea Nitrogen 10 mg/dl (7-17); Calcium 8.3 mg/dl (8.4-10.2); Carbon Dioxide 29 mmol/L (22-30); Chloride 104 mmol/L (98-107); Estimated Creatinine Clearance 113 ml/min; Glucose 91 mg/dl (70-99); Magnesium 2.4 mg/dl (1.6-2.3); Potassium 3.2 mmol/L (3.5-5.1); Sodium 137 mmol/L (135-145); eGFR > 60.00
--- NOTE | 2024-03-11 16:20 | CM ---
Patient seen at bedside
Patient from [facility] senior care
new colostomy
has had [facility] PT/OT
PT eval today-sat edge bed-will continue to work with patient
[facility]
PLAN: SNF vs. [facility] at senior care, CM to continue to follow
--- NOTE | 2024-03-11 16:44 | PTCARENOTE ---
At 16:11, pt had a 6 second burst of SVT HR 170. HR WNL following burst. BP stable. RN was in the room with patient at the time providing hygiene care. Patient appeared asymptomatic. made aware through TT, which message was read but no reply
from .
[2024-03-11] MEDS: LOVENOX 40 MG SC (17:00)
[2024-03-11] MEDS: LEVOTHROID 37.5 MCG IV (17:01)
--- NOTE | 2024-03-11 20:00 | PTCARENOTE ---
Received pt from previous shift. Assessment performed, see flowsheets. Pt lying comfortably in bed with no complaints at this time. SaO2 94% on 2L NC, ST on heart monitor. L wrist PIV with NSS at 125mL/hr. KCl infusion infusing in L hand PIV.
Colostomy in place, gas noted in bag. Alba catheter draining nellie urine. Assisted pt with sips of clears. Q2 turns maintained. [facility] care home updated via phone. Will continue to monitor.
[2024-03-11] MEDS: DEPACON 55 MG IV (22:49)
[2024-03-12] VITALS (13 sets, daily range): BP systolic 133–155; BP diastolic 92–110
[2024-03-12] MEDS: ZOSYN 50 IV ×4 (04:02→21:35)
[2024-03-12 04:38] LABS: Blood Urea Nitrogen 8 mg/dl (7-17); Calcium 8.5 mg/dl (8.4-10.2); Carbon Dioxide 28 mmol/L (22-30); Chloride 104 mmol/L (98-107); Estimated Creatinine Clearance 113 ml/min; Glucose 115 mg/dl (70-99); Potassium 3.7 mmol/L (3.5-5.1); Sodium 136 mmol/L (135-145); eGFR > 60.00
[2024-03-12 04:46] LABS: Hematocrit 30.7 % (37.0-47.0); Hemoglobin 10.2 g/dL (12.0-16.0); Mean Corp Hgb Conc. 33.2 g/dL (33.0-37.0); Mean Corpuscular Hgb 30.3 pg (27.0-31.0); Mean Corpuscular Volume 91.1 fL (81.0-99.0); Mean Platelet Volume 10.2 fL (7.4-10.4); Platelet Count 252 10^3/uL (130-400); Red Blood Cell Count 3.37 10^6/uL (4.20-5.40); Red Cell Dist. Width 14.8 % (11.5-14.5); White Blood Cell Count 7.3 10^3/uL (4.8-10.8)
[2024-03-12] MEDS: NSS (PRESERVATIVE FREE) 10 ML IV (07:26)
[2024-03-12] MEDS: NSS 1000 IV ×2 (07:26→17:09)
[2024-03-12] MEDS: DEPACON 52.5 MG IV (07:26)
[2024-03-12] MEDS: PROTONIX IV 40 MG IV (07:27)
--- NOTE | 2024-03-12 08:47 | W.PN.HOSP.TC ---
Today's Communication/Plan
-
see bold
Assessment / Plan
Assessment / Plan
Gen: NAD, Awake and alert
Eyes: EOMI, PERRLA, no scleral icterus.
Neck: supple.
CV: remains tachy, reg, rhythm, +S1/S2, no m/r/g.
Resp: continues to remain CTAB anteriorly, no rales, wheezes, or rhonchi.
Abd: +BS, soft, NT to light palpation, mod abdominal distention
Skin: No rashes.
Neuro: CN 2-12 intact, non-focal.
Psych: Normal mood and affect.
CT A/P: Large bowel obstruction with pronounced dilation of the colon extending to the distal sigmoid. There is apparent twisting of the sigmoid colon, seen best on coronal imaging, highly suspicious for sigmoid volvulus. There is a 10.0 x 8.3 x 8.4
cm cystic focus within the presacral/retrouterine space which may represent cystic presacral or ovarian lesion, or possible loculated fluid. There is an additional 3.4 cm hypodense lesion within the right ovary. Further evaluation with dedicated
pelvic ultrasound is recommended. There are numerous hypodense hepatic lesions with the largest measuring 8.9 cm. These appear to demonstrate peripheral, nodular discontinuous enhancement and may represent large hemangiomas although metastatic
disease is possible. Recommend MRI abdomen for further evaluation. There are numerous mildly hypodense lesions within the spleen which measure up to 1.4 cm which are indeterminant on this examination however may represent hemangiomas, although
metastasis are also possible. Further evaluation with MRI abdomen should be considered. There is elevation of the left hemidiaphragm with left basilar atelectasis. There is small volume intrahepatic free fluid. Diffuse osteopenia with scattered
sclerotic foci, possible bone islands.
Acute large bowel obstruction due to sigmoid volvulus:
-s/p Exploratory laparotomy, sigmoidectomy, creation end colostomy on 03/08/24
-was NPO with NGT to low-intermittent suction, NGT removed 03/10/24
-pain control
-will need further imaging to better assess other findings on the CT scan of the abdomen pelvis. Concern for underlying malignancy. Would like to wait until pt can take the oral contrast (not eating much now).
-fever 03/09/24AM was likely post-op localized peritonitis, cont Zosyn
-advanced to clears but not eating well, cont IVFs
Severe Hypotonic Hyponatremia:
-Likely due to intraabdominal pathology, including rapid dehydration, and psychotropic meds as well as component of SIADH
-UOsm 678, SOsm 253, Adryan 30
-renal following
-1L D5W over 2 hours given 03/09/24AM as per renal
-Na now 136, resolved
Other problems:
Hypothyroidism: TSH normal, cont IV synthroid
Hypokalemia, resolved
FULL/Lovenox
Anticipated Discharge: > 48 hours
Subjective/Interval History
-
Date of Service: March 12, 2024
Pt does not offer acute complaints.
Objective Data
-
Labs:
Laboratory Results
03/12/24
03:57
WBC 7.3
Hgb 10.2 L
Hct 30.7 L
Plt Count 252 D
Sodium 136
Potassium 3.7
Chloride 104
Carbon Dioxide 28
BUN 8
Creatinine 0.4 L
Glucose 115 H
Calcium 8.5
Vital Signs:
Vital Signs
Temp Pulse Resp BP Pulse Ox
98.5 F 99 15 137/104 97
03/12/24 07:50 03/12/24 08:00 03/12/24 08:00 03/12/24 08:00 03/12/24 08:00
I&O
03/11/24 03/12/24 03/13/24
06:59 06:59 06:59
Intake Total 240 / 240 3880 / 3880
Output Total 650 / 650 450 / 450 25 /
Balance -410 / -410 3430 / 3430 -
[2024-03-12] MEDS: MORPHINE SULFATE 2 MG IV ×2 (09:07→21:08)
--- NOTE | 2024-03-12 09:38 | W.PN.NEPH.PH ---
Today's Communication / Plan
-
follow BMP
Assessment/Plan
-
IMP:
Acute large bowel obstruction due to sigmoid volvulus
Severe Hyponatremia
Hypothyroidism
Hypokalemia
Developmental delay
Osteopenia noted on CT
Hepatic hypodense lesions noted on CT
Ovarian cyst /lesion 10cm -on CT
Plan:
follow BMP
IVF NSS ok
replete K prn
check phos
-
-
Date of Service: March 12, 2024
CC / HPI / ROS
-
Chief Complaint:
Hyponatremia
History of Present Illness:
Na up to 136
BP stable low
K up to 3.7
eating clears still
Review of Systems:
No distress
No chest pain or shortness of breath
Labs
-
Labs:
WBC 7.3 10^3/uL (4.8-10.8) 03/12/24 03:57
RBC 3.37 10^6/uL (4.20-5.40) L 03/12/24 03:57
Hgb 10.2 g/dL (12.0-16.0) L 03/12/24 03:57
Hct 30.7 % (37.0-47.0) L 03/12/24 03:57
Plt Count 252 10^3/uL (130-400) D 03/12/24 03:57
Sodium 136 mmol/L (135-145) 03/12/24 03:57
Potassium 3.7 mmol/L (3.5-5.1) 03/12/24 03:57
Chloride 104 mmol/L (98-107) 03/12/24 03:57
Carbon Dioxide 28 mmol/L (22-30) 03/12/24 03:57
BUN 8 mg/dl (7-17) 03/12/24 03:57
Creatinine 0.4 mg/dL (0.6-1.0) L 03/12/24 03:57
eGFR > 60.00 03/12/24 03:57
Glucose 115 mg/dl (70-99) H 03/12/24 03:57
Calcium 8.5 mg/dl (8.4-10.2) 03/12/24 03:57
Albumin 4.2 g/dl (3.5-5.0) 03/08/24 12:28
Physical Exam
-
Vital Signs:
Vital Signs
Temp Pulse Resp BP Pulse Ox
98.5 F 99 15 137/104 97
03/12/24 07:50 03/12/24 08:00 03/12/24 08:00 03/12/24 08:00 03/12/24 08:00
Cardiovascular:: Regular rate and rhythm
Respiratory:: Bilateral: Coarse
Lung Excursion:: Normal
Abdomen:: Nontender and Soft
Bowel Sounds:: Normal
Extremity Edema:: None: Bilateral:
--- NOTE | 2024-03-12 10:10 | PTCARENOTE ---
Assumed care of patient at beginning of this shift from previous RN. Colostomy burped and emptied for 25ml liquid brown stool on initial rounds. Stoma large and red; colostomy bag intact. Abdomen distended, slightly firm with hypoactive bowel
sounds. HRR: NSR-ST, low 100s. Afebrile. POx 96% on 1L n/c; lungs clear but diminished bibasilar. Patient only took 5% of breakfast tray, mostly cranberry juice. Medicated with MSO4 2mg IV at 0904 for c/o abdominal pain; unable to rate, but scored
8/10 on nonverbal scale. Patient asleep afterward. See worklist for full assessment.
[2024-03-12 10:12] LABS: Phosphorus 2.2 mg/dl (2.5-4.5)
--- NOTE | 2024-03-12 11:43 | W.PN.GS2 ---
Today's Communication / Plan
-
ABD XR
Assessment / Plan
-
54F with h/o dev delay now POD 4 s/p Aj's for sigmoid volvulus
Mild tachycardia, stable BP and afebrile (last fever was 03/09)
H/H stable, no leukocytosis
Clinically improved overall, stoma now productive of small amounts of stool/flatus but still with significant abdominal distention and poor PO intake today
Plan:
Continue clears, SAMPLE PATTERNMAKER following
Continue Alba
IVF as per nephrology
Cont abx
Check ABD XR
Ambulate as able
PRN pain control
PPI for GI ppx
Tentative void trial in Am
DVT ppx with lovenox. SCDS for mechanical ppx
Subjective Data
-
Date of Service: March 12, 2024
Patient seen and examined at bedside with Dr. Boles. Sleepy but awakens easily. Offers no complaints.
Objective Data
-
Intake and Output
03/11/24 03/12/24 03/13/24
06:59 06:59 06:59
Intake Total 240 / 240 3880 / 3880
Output Total 650 / 650 450 / 450 350 / 350
Balance -410 / -410 3430 / 3430 -350 / -350
Intake:
Oral fluids 240 / 240 1080 / 1080
IV fluids (Total) 2000 / 1999
IV piggybacks 800 / 800
Output:
Liquid stool amount 125 / 125 100 / 100 25 / 25
Colostomy 125 / 125 100 / 100 25 / 25
Urine, Alba 525 / 525 350 / 350 325 / 325
Vital Signs
Temp Pulse Resp BP Pulse Ox
98.5 F 104 16 138/98 96
03/12/24 07:50 03/12/24 10:04 03/12/24 10:04 03/12/24 10:04 03/12/24 10:07
Lab Results
03/12/24 03:57
03/12/24 03:57
Calcium 8.5 mg/dl (8.4-10.2) 03/12/24 03:57
Phosphorus 2.2 mg/dl (2.5-4.5) L 03/12/24 03:57
Magnesium 2.4 mg/dl (1.6-2.3) H 03/11/24 14:38
Total Bilirubin 0.9 mg/dl (0.2-1.3) 03/08/24 12:28
AST 36 U/L (14-36) 03/08/24 12:28
ALT 16 U/L (0-35) 03/08/24 12:28
Alkaline Phosphatase 67 U/L (38-126) 03/08/24 12:28
Total Protein 6.9 g/dl (6.3-8.2) 03/08/24 12:28
Albumin 4.2 g/dl (3.5-5.0) 03/08/24 12:28
Physical Exam
-
NAD
ABD soft, distended. Stoma with edema but pink/viable with flatus and small loose stool in appliance
Incision with intact staple line, no erythema
--- NOTE | 2024-03-12 14:38 | PTCARENOTE ---
Addendum entered by Lori Lewis RN 03/12/24 14:50:
Magistrate Assistant provided with new room number.
Original Note:
Patient's roller presser operator in to visit and brought belongings home with her.
--- NOTE | 2024-03-12 14:49 | PTCARENOTE ---
Patient to be transferred to [facility]; report given to Lina. TT sent to Ofelia Olivo with results of abd xray.
[2024-03-12] MEDS: LEVOTHROID 37.5 MCG IV (17:11)
[2024-03-12] MEDS: LOVENOX 40 MG SC (17:13)
[2024-03-12] MEDS: POTASSIUM PHOSPHATE 259.0909 MEQ IV (21:30)
[2024-03-12] MEDS: DEPACON 55 MG IV (22:03)
[2024-03-13] VITALS (7 sets, daily range): BP systolic 141–178; BP diastolic 95–110; BMI 23.1
[2024-03-13] MEDS: ZOSYN 50 IV ×4 (05:07→21:17)
[2024-03-13] MEDS: NSS 1000 IV ×2 (05:08→13:51)
[2024-03-13] MEDS: DEPACON 52.5 MG IV (08:50)
[2024-03-13] MEDS: NSS (PRESERVATIVE FREE) 10 ML IV (08:51)
[2024-03-13] MEDS: PROTONIX IV 40 MG IV (08:51)
--- NOTE | 2024-03-13 08:59 | W.PN.HOSP.TC ---
Today's Communication/Plan
-
see bold
Assessment / Plan
Assessment / Plan
CT A/P: Large bowel obstruction with pronounced dilation of the colon extending to the distal sigmoid. There is apparent twisting of the sigmoid colon, seen best on coronal imaging, highly suspicious for sigmoid volvulus. There is a 10.0 x 8.3 x 8.4
cm cystic focus within the presacral/retrouterine space which may represent cystic presacral or ovarian lesion, or possible loculated fluid. There is an additional 3.4 cm hypodense lesion within the right ovary. Further evaluation with dedicated
pelvic ultrasound is recommended. There are numerous hypodense hepatic lesions with the largest measuring 8.9 cm. These appear to demonstrate peripheral, nodular discontinuous enhancement and may represent large hemangiomas although metastatic
disease is possible. Recommend MRI abdomen for further evaluation. There are numerous mildly hypodense lesions within the spleen which measure up to 1.4 cm which are indeterminant on this examination however may represent hemangiomas, although
metastasis are also possible. Further evaluation with MRI abdomen should be considered. There is elevation of the left hemidiaphragm with left basilar atelectasis. There is small volume intrahepatic free fluid. Diffuse osteopenia with scattered
sclerotic foci, possible bone islands.
Acute large bowel obstruction due to sigmoid volvulus:
-s/p Exploratory laparotomy, sigmoidectomy, creation end colostomy on 03/08/24
-was NPO with NGT to low-intermittent suction, NGT removed 03/10/24
-03/09/24 AM fever, was likely post-op localized peritonitis, cont Zosyn
-03/12/24 advanced to clears but there is increased abdominal distention
-03/13/24 - NGT re-inserted, NPO, IVFs
Severe Hypotonic Hyponatremia:
-Likely due to intraabdominal pathology, including rapid dehydration, and psychotropic meds as well as component of SIADH
-UOsm 678, SOsm 253, Adryan 30
-Resolved, continue management as per nephrology
Other problems:
Hypothyroidism: TSH normal, cont IV synthroid
Hypokalemia: resolved
Intellectual disability: From shelter
DVT prophylaxis�subcu Lovenox
Full code
POA (Sister)- Ana María Johns
Total time spent to see the patient on the floor, examine the patient, review data and lab results, discuss treatment plan with patient, nursing staff around 45 minutes.
Physical exam
Gen: NAD, Awake and alert
Eyes: EOMI, PERRLA, no scleral icterus.
Neck: supple.
CV: remains tachy, reg, rhythm, +S1/S2, no m/r/g.
Resp: continues to remain CTAB anteriorly, no rales, wheezes, or rhonchi.
Abd: +BS, soft, NT to light palpation, mod abdominal distention
Skin: No rashes.
Neuro: CN 2-12 intact, non-focal.
Psych: Normal mood and affect.
Anticipated Discharge: > 48 hours
Subjective/Interval History
-
Date of Service: March 13, 2024
Patient's abdomen is distended. She is agitated as nurse is trying to insert NG tube. No fever, no vomiting.
Objective Data
-
Labs:
Laboratory Results
03/13/24
07:45
WBC Pending
Hgb Pending
Hct Pending
Plt Count Pending
Sodium Pending
Potassium Pending
Chloride Pending
Carbon Dioxide Pending
BUN Pending
Creatinine Pending
Glucose Pending
Calcium Pending
Vital Signs:
Vital Signs
Temp Pulse Resp BP Pulse Ox
98.7 F 107 16 163/98 96
03/13/24 07:40 03/13/24 07:40 03/13/24 07:40 03/13/24 07:40 03/13/24 07:40
I&O
03/12/24 03/13/24 03/14/24
06:59 06:59 06:59
Intake Total 3880 / 3880 120 / 120
Output Total 450 / 450 1450 / 1450
Balance 3430 / 3430 -1330 / -1330
[2024-03-13 09:17] LABS: Hematocrit 31.7 % (37.0-47.0); Hemoglobin 10.6 g/dL (12.0-16.0); Mean Corp Hgb Conc. 33.4 g/dL (33.0-37.0); Mean Corpuscular Hgb 30.5 pg (27.0-31.0); Mean Corpuscular Volume 91.4 fL (81.0-99.0); Platelet Count 292 10^3/uL (130-400); Red Blood Cell Count 3.47 10^6/uL (4.20-5.40); Red Cell Dist. Width 14.4 % (11.5-14.5); White Blood Cell Count 7.1 10^3/uL (4.8-10.8)
[2024-03-13 09:55] LABS: Blood Urea Nitrogen 5 mg/dl (7-17); Calcium 8.5 mg/dl (8.4-10.2); Carbon Dioxide 27 mmol/L (22-30); Chloride 100 mmol/L (98-107); Estimated Creatinine Clearance 113 ml/min; Glucose 82 mg/dl (70-99); Potassium 3.6 mmol/L (3.5-5.1); Sodium 134 mmol/L (135-145); eGFR > 60.00
--- NOTE | 2024-03-13 10:30 | W.PN.NEPH.PH ---
Today's Communication / Plan
-
Maintain IV fluids
Assessment/Plan
-
IMP:
Acute large bowel obstruction due to sigmoid volvulus
Severe Hyponatremia
Hypothyroidism
Hypokalemia
Developmental delay
Osteopenia noted on CT
Hepatic hypodense lesions noted on CT
Ovarian cyst /lesion 10cm -on CT
Plan:
Electrolytes balance
Sodium at 134
follow BMP
IVF NSS ok
replete K prn
check phos
-
-
Date of Service: March 13, 2024
CC / HPI / ROS
-
Chief Complaint:
Hyponatremia
History of Present Illness:
Na down to 134
BP up
K up to 3.6
eating clears still
Review of Systems:
No distress
No chest pain or shortness of breath
Labs
-
Labs:
WBC 7.1 10^3/uL (4.8-10.8) 03/13/24 07:45
RBC 3.47 10^6/uL (4.20-5.40) L 03/13/24 07:45
Hgb 10.6 g/dL (12.0-16.0) L 03/13/24 07:45
Hct 31.7 % (37.0-47.0) L 03/13/24 07:45
Plt Count 292 10^3/uL (130-400) 03/13/24 07:45
Sodium 134 mmol/L (135-145) L 03/13/24 07:45
Potassium 3.6 mmol/L (3.5-5.1) 03/13/24 07:45
Chloride 100 mmol/L (98-107) 03/13/24 07:45
Carbon Dioxide 27 mmol/L (22-30) 03/13/24 07:45
BUN 5 mg/dl (7-17) L 03/13/24 07:45
Creatinine 0.4 mg/dL (0.6-1.0) L 03/13/24 07:45
eGFR > 60.00 03/13/24 07:45
Glucose 82 mg/dl (70-99) 03/13/24 07:45
Calcium 8.5 mg/dl (8.4-10.2) 03/13/24 07:45
Phosphorus 2.2 mg/dl (2.5-4.5) L 03/12/24 03:57
Albumin 4.2 g/dl (3.5-5.0) 03/08/24 12:28
Physical Exam
-
Vital Signs:
Vital Signs
Temp Pulse Resp BP Pulse Ox
98.7 F 107 16 163/98 96
03/13/24 07:40 03/13/24 07:40 03/13/24 07:40 03/13/24 07:40 03/13/24 07:40
Cardiovascular:: Regular rate and rhythm
Respiratory:: Bilateral: Coarse
Lung Excursion:: Normal
Abdomen:: Nontender and Soft
Bowel Sounds:: Decreased
Extremity Edema:: None: Bilateral:
[2024-03-13] MEDS: NSS (PRESERVATIVE FREE) 1 ML IV (10:36)
[2024-03-13] MEDS: ATIVAN 1.5 MG IV (10:37)
--- NOTE | 2024-03-13 10:58 | W.PN.GS2 ---
Today's Communication / Plan
-
Place NGT and make NPO
Assessment / Plan
-
54F with h/o dev delay now POD 5 s/p Aj's for sigmoid volvulus
Mild tachycardia, stable BP and afebrile (last fever was 03/09)
H/H stable, no leukocytosis
Ileus present, +nausea
Plan:
NPO
Place NGT to LIWS
Voiding trial
IVF as per nephrology
Cont abx
Ambulate as able
PRN pain control
PPI for GI ppx
DVT ppx with lovenox. SCDS for mechanical ppx
Subjective Data
-
Date of Service: March 13, 2024
Patient seen and examined at bedside. Restless, reports nausea. Denies significant pain.
Objective Data
-
Intake and Output
03/12/24 03/13/24 03/14/24
06:59 06:59 06:59
Intake Total 3880 / 3880 120 / 120
Output Total 450 / 450 1450 / 1450
Balance 3430 / 3430 -1330 / -1330
Intake:
Oral fluids 1080 / 1080 120 / 120
IV fluids (Total) 2000 / 2000
IV piggybacks 800 / 800
Output:
Liquid stool amount 100 / 100 25 / 25
Colostomy 100 / 100 25 / 25
Urine, Alba 350 / 350 1425 / 1425
Vital Signs
Temp Pulse Resp BP Pulse Ox
98.7 F 107 16 163/98 96
03/13/24 07:40 03/13/24 07:40 03/13/24 07:40 03/13/24 07:40 03/13/24 07:40
Lab Results
03/13/24 07:45
03/13/24 07:45
Calcium 8.5 mg/dl (8.4-10.2) 03/13/24 07:45
Phosphorus 2.2 mg/dl (2.5-4.5) L 03/12/24 03:57
Magnesium 2.4 mg/dl (1.6-2.3) H 03/11/24 14:38
Total Bilirubin 0.9 mg/dl (0.2-1.3) 03/08/24 12:
AST 36 U/L (14-36) 03/08/24 12:
ALT 16 U/L (0-35) 03/08/24 12:
Alkaline Phosphatase 67 U/L (38-126) 03/08/24 12:
Total Protein 6.9 g/dl (6.3-8.2) 03/08/24 12:
Albumin 4.2 g/dl (3.5-5.0) 03/08/24 12:
Physical Exam
-
NAD
ABD soft, distended. Stoma with edema but pink/viable with some flatus and small loose stool in appliance
Incision with intact staple line, no erythema
[2024-03-13] MEDS: HURRICAINE SPRAY 1 APPLIC TOPICAL (11:38)
--- NOTE | 2024-03-13 11:49 | PTCARENOTE ---
First attempt of NG tube placement by this RN failed, pt began screaming and pushing staff away. MD notified. 2mg ativan IV ordered. Directions to give 1.5mg first and additional 0.5mg if needed. 1.5mg ativan given IV, this RN did not think an
additional 0.5mg needed. Wasted with RN on unit. Charge nurse and nurse functional manager on floor made aware. This RN assisted DIRECTOR OF PARTNER MARKETING with NG tube placement. Pt tolerated placement. X-ray ordered. Pt connected to low-intermittent suction by DIRECTOR OF PARTNER MARKETING. Will continue to
monitor pt.
[2024-03-13] MEDS: POTASSIUM PHOSPHATE 259.0909 MEQ IV (15:16)
--- NOTE | 2024-03-13 16:53 | CM ---
Met with Jovana Quinones cell# [phone] who is a kersey department supervisor at [facility]. She stated that patient was current with [facility] and she would like for resumption of care when patient returns, particularly so they can understand how to perform new demands
of care with Colostomy bag. She asked for updates on patient prior to discharge.
Plan: Case management will continue to follow and assist with discharge planning. Back to [facility] when stable.
[2024-03-13] MEDS: LEVOTHROID 37.5 MCG IV (17:36)
[2024-03-13] MEDS: LOVENOX 40 MG SC (17:39)
[2024-03-13] MEDS: DEPACON 55 MG IV (21:18)
[2024-03-13] MEDS: MORPHINE SULFATE 2 MG IV (23:49)
[2024-03-14] VITALS (9 sets, daily range): BP systolic 134–152; BP diastolic 83–101; PULSE 102; O2SAT 96
[2024-03-14] MEDS: ZOSYN 50 IV ×4 (03:30→22:24)
[2024-03-14] MEDS: NSS 1000 IV (05:53)
[2024-03-14 08:00] LABS: Hematocrit 31.5 % (37.0-47.0); Hemoglobin 11.1 g/dL (12.0-16.0); Mean Corp Hgb Conc. 35.2 g/dL (33.0-37.0); Mean Corpuscular Hgb 30.9 pg (27.0-31.0); Mean Corpuscular Volume 87.7 fL (81.0-99.0); Mean Platelet Volume 9.8 fL (7.4-10.4); Platelet Count 325 10^3/uL (130-400); Red Blood Cell Count 3.59 10^6/uL (4.20-5.40); Red Cell Dist. Width 14.1 % (11.5-14.5); White Blood Cell Count 8.9 10^3/uL (4.8-10.8)
[2024-03-14 08:49] LABS: Blood Urea Nitrogen 4 mg/dl (7-17); Calcium 8.4 mg/dl (8.4-10.2); Carbon Dioxide 28 mmol/L (22-30); Chloride 100 mmol/L (98-107); Estimated Creatinine Clearance 113 ml/min; Glucose 68 mg/dl (70-99); Magnesium 1.8 mg/dl (1.6-2.3); Phosphorus 3.1 mg/dl (2.5-4.5); Sodium 135 mmol/L (135-145); eGFR > 60.00
[2024-03-14 08:59] LABS: Potassium 3.2 mmol/L (3.5-5.1)
[2024-03-14] MEDS: NSS (PRESERVATIVE FREE) 10 ML IV (09:07)
[2024-03-14] MEDS: PROTONIX IV 40 MG IV (09:07)
[2024-03-14] MEDS: DEPACON 52.5 MG IV (09:11)
[2024-03-14] MEDS: LOPRESSOR 5 MG IV ×3 (09:15→20:15)
--- NOTE | 2024-03-14 10:41 | W.PN.GS2 ---
Today's Communication / Plan
-
-- No major changes, continue with NPO, NGT to LIWS
-- repeat abd X-ray in AM
Assessment / Plan
-
54F with h/o dev delay now POD#6 s/p Aj's for sigmoid volvulus
Tachycardia, stable BP and afebrile
H/H stable, no leukocytosis
Ileus present, +nausea
Clinical assessment limited based on patient's ability reports symptoms. Exam with significant distention and bilious NGT output. Continue with NGT decompression and bowel rest. Will repeat abdominal x-ray in the a.m.
Plan:
-- NPO, NGT to LIWS
-- Pain control: Tylenol and IV Morphine
-- IVF as per Nephrology
-- Cont abx
-- PPI for GI ppx
-- DVT ppx with Lovenox, SCDS for mechanical ppx
-- Repeat abd X-ray in AM
Subjective Data
-
Date of Service: March 14, 2024
Encounter and interactions limited due to patient's underlying mental status. Denies any nausea or vomiting. Denies any worsening abdominal pain.
Objective Data
-
Intake and Output
03/13/24 03/14/24 03/15/24
06:59 06:59 06:59
Intake Total 120 / 120 90 / 90
Output Total 1450 / 1450 1500 / 1500
Balance -1330 / -1330 -1410 / -1410
Intake:
Oral fluids 120 / 120
Amount instilled into GI Tube ( 90 /
Total)
[place] Sump 90 / 90
Output:
Liquid stool amount / 400 / 400
Colostomy / 400 / 400
Gastrointestinal tube output ( 700 / 700
Total)
[place] Sump 700 / 700
Urine, Alba 1425 / 1425
Urine, Voided 400 / 400
Other:
How many times incontinent 1
MODERATE amount urine
How many times incontinent 1
SATURATED amount urine
Vital Signs
Temp Pulse Resp BP Pulse Ox
98.6 F 116 17 150/98 98
03/14/24 07:34 03/14/24 09:15 03/14/24 07:34 03/14/24 09:15 03/14/24 07:34
Lab Results
03/14/24 06:50
03/14/24 06:50
Calcium 8.4 mg/dl (8.4-10.2) 03/14/24 06:50
Phosphorus 3.1 mg/dl (2.5-4.5) 03/14/24 06:50
Magnesium 1.8 mg/dl (1.6-2.3) 03/14/24 06:50
Total Bilirubin 0.9 mg/dl (0.2-1.3) 03/08/24 12:28
AST 36 U/L (14-36) 03/08/24 12:28
ALT 16 U/L (0-35) 03/08/24 12:28
Alkaline Phosphatase 67 U/L (38-126) 03/08/24 12:28
Total Protein 6.9 g/dl (6.3-8.2) 03/08/24 12:28
Albumin 4.2 g/dl (3.5-5.0) 03/08/24 12:28
Physical Exam
-
Gen: NAD
HEENT: NGT bilious
Abd: soft, NT, distended, non-peritoneal, midline c/d/i, ostomy PPV - mucosal engorgement and some prolapse, flatus and stool in appliance
--- NOTE | 2024-03-14 11:37 | W.PN.NEPH.PH ---
Today's Communication / Plan
-
Continue normal saline maintenance
Assessment/Plan
-
IMP:
Acute large bowel obstruction due to sigmoid volvulus
Severe Hyponatremia
Hypothyroidism
Hypokalemia
Developmental delay
Osteopenia noted on CT
Hepatic hypodense lesions noted on CT
Ovarian cyst /lesion 10cm -on CT
Plan:
Electrolytes balance
Sodium at 134> 135
follow BMP
NS at 75 cc/h
replete K prn
-
-
Date of Service: March 14, 2024
CC / HPI / ROS
-
Chief Complaint:
Hyponatremia
History of Present Illness:
Na down to 134
BP up
Review of Systems:
No distress
No chest pain or shortness of breath
Labs
-
Labs:
WBC 8.9 10^3/uL (4.8-10.8) 03/14/24 06:50
RBC 3.59 10^6/uL (4.20-5.40) L 03/14/24 06:50
Hgb 11.1 g/dL (12.0-16.0) L 03/14/24 06:50
Hct 31.5 % (37.0-47.0) L 03/14/24 06:50
Plt Count 325 10^3/uL (130-400) 03/14/24 06:50
Sodium 135 mmol/L (135-145) 03/14/24 06:50
Potassium 3.2 mmol/L (3.5-5.1) L 03/14/24 06:50
Chloride 100 mmol/L (98-107) 03/14/24 06:50
Carbon Dioxide 28 mmol/L (22-30) 03/14/24 06:50
BUN 4 mg/dl (7-17) L 03/14/24 06:50
Creatinine 0.4 mg/dL (0.6-1.0) L 03/14/24 06:50
eGFR > 60.00 03/14/24 06:50
Glucose 68 mg/dl (70-99) L 03/14/24 06:50
Calcium 8.4 mg/dl (8.4-10.2) 03/14/24 06:50
Phosphorus 3.1 mg/dl (2.5-4.5) 03/14/24 06:50
Albumin 4.2 g/dl (3.5-5.0) 03/08/24 12:28
Physical Exam
-
Vital Signs:
Vital Signs
Temp Pulse Resp BP Pulse Ox
98.3 F 110 18 150/101 97
03/14/24 10:58 03/14/24 10:58 03/14/24 10:58 03/14/24 10:58 03/14/24 10:58
Cardiovascular:: Regular rate and rhythm
Respiratory:: Bilateral: Coarse
Lung Excursion:: Normal
Abdomen:: Nontender and Soft
Bowel Sounds:: Decreased
Extremity Edema:: None: Bilateral:
--- NOTE | 2024-03-14 12:22 | WOUNDNOTE ---
[facility] RN NOTE: Patient visited for ostomy pouch change. Lateral aspect of stoma is black. Picture sent to Dr. Torre and plan is to continue to assess. RN Dom updated on plan. Ostomy changed with Danial barrier number [id number] and pouch [id number]. 4 inch
barrier and pouch also ordered to bed side as patients stoma is large (barrier [id number], and pouch [id number]). Peristomal skin intact. Skin tear adjacent to midline nickie appears stable and was cleaned and covered with adaptic and sterile 4x4. Clean
sterile 4x4 applied to midline nickie. Heels intact. Per RN, sacrum intact. Will continue to follow.
--- NOTE | 2024-03-14 13:27 | WOUNDNOTE ---
ABDOMINAL SKIN TEAR
--- NOTE | 2024-03-14 13:28 | WOUNDNOTE ---
LATERAL ASPECT OF STOMA
[2024-03-14] MEDS: MORPHINE SULFATE 2 MG IV (14:25)
--- NOTE | 2024-03-14 15:33 | W.PN.HOSP.TC ---
Today's Communication/Plan
-
see bold
Assessment / Plan
Assessment / Plan
CT A/P: Large bowel obstruction with pronounced dilation of the colon extending to the distal sigmoid. There is apparent twisting of the sigmoid colon, seen best on coronal imaging, highly suspicious for sigmoid volvulus. There is a 10.0 x 8.3 x 8.4
cm cystic focus within the presacral/retrouterine space which may represent cystic presacral or ovarian lesion, or possible loculated fluid. There is an additional 3.4 cm hypodense lesion within the right ovary. Further evaluation with dedicated
pelvic ultrasound is recommended. There are numerous hypodense hepatic lesions with the largest measuring 8.9 cm. These appear to demonstrate peripheral, nodular discontinuous enhancement and may represent large hemangiomas although metastatic
disease is possible. Recommend MRI abdomen for further evaluation. There are numerous mildly hypodense lesions within the spleen which measure up to 1.4 cm which are indeterminant on this examination however may represent hemangiomas, although
metastasis are also possible. Further evaluation with MRI abdomen should be considered. There is elevation of the left hemidiaphragm with left basilar atelectasis. There is small volume intrahepatic free fluid. Diffuse osteopenia with scattered
sclerotic foci, possible bone islands.
Acute large bowel obstruction due to sigmoid volvulus:
Postoperative ileus:
-s/p Exploratory laparotomy, sigmoidectomy, creation end colostomy on 03/08/24
-was NPO with NGT to low-intermittent suction, NGT removed 03/10/24
-03/09/24 AM fever, was likely post-op localized peritonitis, continue Zosyn
-03/12/24 advanced to clears but there is increased abdominal distention
-03/13/24 - NGT re-inserted
-Continue NPO, IVFs, supportive care
Severe Hypotonic Hyponatremia:
-Likely due to intraabdominal pathology, including rapid dehydration, and psychotropic meds as well as component of SIADH
-UOsm 678, SOsm 253, Adryan 30
-Resolved, continue management as per nephrology
Other problems:
Hypothyroidism: TSH normal, cont IV synthroid
Hypokalemia: Replete prn
Intellectual disability: From senior care
DVT prophylaxis�subcu Lovenox
Full code
MERON (Sister)- Ana María Johns
Total time spent to see the patient on the floor, examine the patient, review data and lab results, discuss treatment plan with patient, nursing staff around 40 minutes.
Physical exam
Gen: NAD, Awake and alert
Eyes: EOMI, PERRLA, no scleral icterus.
Neck: supple.
CV: remains tachy, reg, rhythm, +S1/S2, no m/r/g.
Resp: continues to remain CTAB anteriorly, no rales, wheezes, or rhonchi.
Abd: +BS, soft, NT to light palpation, mod abdominal distention
Skin: No rashes.
Neuro: CN 2-12 intact, non-focal.
Psych: Normal mood and affect.
Anticipated Discharge: > 48 hours
Subjective/Interval History
-
Date of Service: March 14, 2024
Patient complains of abdominal pain. She remains distended. No fever.
Objective Data
-
Labs:
Laboratory Results
03/14/24
06:50
WBC 8.9
Hgb 11.1 L
Hct 31.5 L
Plt Count 325
Sodium 135
Potassium 3.2 L
Chloride 100
Carbon Dioxide 28
BUN 4 L
Creatinine 0.4 L
Glucose 68 L
Calcium 8.4
Vital Signs:
Vital Signs
Temp Pulse Resp BP Pulse Ox
98.3 F 110 18 150/101 97
03/14/24 10:58 03/14/24 10:58 03/14/24 10:58 03/14/24 10:58 03/14/24 10:58
I&O
03/13/24 03/14/24 03/15/24
06:59 06:59 06:59
Intake Total 120 / 120 90 / 90
Output Total 1450 / 1450 1500 / 1500
Balance -1330 / -1330 -1410 / -1410
[2024-03-14] MEDS: D5/0.9% SODIUM CHLORIDE 1000 IV (15:55)
[2024-03-14] MEDS: NSS IV (15:57)
[2024-03-14] MEDS: KCL 260 MEQ IV (17:02)
[2024-03-14] MEDS: LEVOTHROID 37.5 MCG IV (17:03)
[2024-03-14] MEDS: LOVENOX 40 MG SC (17:03)
[2024-03-14] MEDS: DEPACON 55 MG IV (21:23)
[2024-03-15] MEDS: LOPRESSOR 5 MG IV ×4 (02:41→20:48)
[2024-03-15 03:18] VITALS: BP 147/98
[2024-03-15] MEDS: ZOSYN 50 IV ×4 (04:03→21:00)
[2024-03-15 07:00] VITALS: BP 138/101
--- NOTE | 2024-03-15 07:58 | W.PN.HOSP.TC ---
Today's Communication/Plan
-
see bold
Assessment / Plan
Assessment / Plan
CT A/P: Large bowel obstruction with pronounced dilation of the colon extending to the distal sigmoid. There is apparent twisting of the sigmoid colon, seen best on coronal imaging, highly suspicious for sigmoid volvulus. There is a 10.0 x 8.3 x 8.4
cm cystic focus within the presacral/retrouterine space which may represent cystic presacral or ovarian lesion, or possible loculated fluid. There is an additional 3.4 cm hypodense lesion within the right ovary. Further evaluation with dedicated
pelvic ultrasound is recommended. There are numerous hypodense hepatic lesions with the largest measuring 8.9 cm. These appear to demonstrate peripheral, nodular discontinuous enhancement and may represent large hemangiomas although metastatic
disease is possible. Recommend MRI abdomen for further evaluation. There are numerous mildly hypodense lesions within the spleen which measure up to 1.4 cm which are indeterminant on this examination however may represent hemangiomas, although
metastasis are also possible. Further evaluation with MRI abdomen should be considered. There is elevation of the left hemidiaphragm with left basilar atelectasis. There is small volume intrahepatic free fluid. Diffuse osteopenia with scattered
sclerotic foci, possible bone islands.
Acute large bowel obstruction due to sigmoid volvulus:
Postoperative ileus:
-s/p Exploratory laparotomy, sigmoidectomy, creation end colostomy on 03/08/24
-was NPO with NGT to low-intermittent suction, NGT removed 03/10/24
-03/09/24 AM fever, was likely post-op localized peritonitis, continue Zosyn
-03/12/24 advanced to clears but there is increased abdominal distention
-03/13/24 - NGT re-inserted
-Continue NPO, IVFs, supportive care
Severe Hypotonic Hyponatremia:
-Sodium 120 upon admission
-Likely due to intraabdominal pathology, including rapid dehydration, and psychotropic meds as well as component of SIADH
-UOsm 678, SOsm 253, Adryan 30
-Resolved, continue management as per nephrology
Hypoglycemia
-Resolved with D5 NS
Essential hypertension
-Improved with metoprolol titrate 5 mg IV every 6 hours
Other problems:
Hypothyroidism: TSH normal, cont IV synthroid
Hypokalemia: Replete prn
Intellectual disability: From halfway
DVT prophylaxis�subcu Lovenox
Full code
MERON (Sister)[place] Johns
Total time spent to see the patient on the floor, examine the patient, review data and lab results, discuss treatment plan with patient, nursing staff around 50 minutes.
Physical exam
Gen: NAD, Awake and alert
Eyes: EOMI, PERRLA, no scleral icterus.
Neck: supple.
CV: remains tachy, reg, rhythm, +S1/S2, no m/r/g.
Resp: continues to remain CTAB anteriorly, no rales, wheezes, or rhonchi.
Abd: +BS, soft, NT to light palpation, mod abdominal distention
Skin: No rashes.
Neuro: CN 2-12 intact, non-focal.
Psych: Normal mood and affect.
Anticipated Discharge: > 48 hours
Subjective/Interval History
-
Date of Service: March 15, 2024
Patient complains of being hungry. She wants to eat. No fever.
Objective Data
-
Labs:
Laboratory Results
03/15/24
07:36
WBC Pending
Hgb Pending
Hct Pending
Plt Count Pending
Sodium Pending
Potassium Pending
Chloride Pending
Carbon Dioxide Pending
BUN Pending
Creatinine Pending
Glucose Pending
Calcium Pending
Vital Signs:
Vital Signs
Temp Pulse Resp BP Pulse Ox
98.6 F 100 17 147/98 95
03/15/24 03:18 03/15/24 03:18 03/15/24 03:18 03/15/24 03:18 03/15/24 03:18
I&O
03/14/24 03/15/24 03/16/24
06:59 06:59 06:59
Intake Total 90 / 90 1130 / 1130
Output Total 1500 / 1500 2009
Balance -1410 / -1410 -880 / -880
[2024-03-15 08:15] LABS: Hemoglobin 10.6 g/dL (12.0-16.0); Mean Corp Hgb Conc. 34.2 g/dL (33.0-37.0); Mean Corpuscular Hgb 30.2 pg (27.0-31.0); Mean Corpuscular Volume 88.3 fL (81.0-99.0); Mean Platelet Volume 9.5 fL (7.4-10.4); Platelet Count 329 10^3/uL (130-400); Red Blood Cell Count 3.51 10^6/uL (4.20-5.40); Red Cell Dist. Width 14.3 % (11.5-14.5); White Blood Cell Count 8.4 10^3/uL (4.8-10.8)
[2024-03-15 08:59] LABS: Blood Urea Nitrogen 3 mg/dl (7-17); Calcium 8.6 mg/dl (8.4-10.2); Carbon Dioxide 27 mmol/L (22-30); Estimated Creatinine Clearance 113 ml/min; Glucose 89 mg/dl (70-99); Potassium 3.4 mmol/L (3.5-5.1); Sodium 136 mmol/L (135-145); eGFR > 60.00
[2024-03-15 09:04] LABS: Chloride 102 mmol/L (98-107)
[2024-03-15] MEDS: NSS (PRESERVATIVE FREE) 10 ML IV (09:28)
[2024-03-15] MEDS: PROTONIX IV 40 MG IV (09:29)
[2024-03-15] MEDS: DEPACON 52.5 MG IV (09:29)
[2024-03-15 11:00] VITALS: BP 139/103
[2024-03-15] MEDS: D5/0.9% SODIUM CHLORIDE 1000 IV ×2 (11:34→22:54)
--- NOTE | 2024-03-15 12:00 | W.PN.NEPH.PH ---
Today's Communication / Plan
-
Continue to follow electrolytes. Remains on maintenance D5 normal
Assessment/Plan
-
IMP:
Acute large bowel obstruction due to sigmoid volvulus
Severe Hyponatremia
Hypothyroidism
Hypokalemia
Developmental delay
Osteopenia noted on CT
Hepatic hypodense lesions noted on CT
Ovarian cyst /lesion 10cm -on CT
Plan:
Electrolytes balance
Sodium at 134> 135>134
follow BMP
D5 NS at 75 cc/h
replete K =, potassium 3.4
Remains on Zosyn
NG tube
-
-
Date of Service: March 15, 2024
CC / HPI / ROS
-
Chief Complaint:
Hyponatremia
History of Present Illness:
Na down to 134
Review of Systems:
No distress
No chest pain or shortness of breath
Labs
-
Labs:
WBC 8.4 10^3/uL (4.8-10.8) 03/15/24 07:36
RBC 3.51 10^6/uL (4.20-5.40) L 03/15/24 07:36
Hgb 10.6 g/dL (12.0-16.0) L 03/15/24 07:36
Hct 31.0 % (37.0-47.0) L 03/15/24 07:36
Plt Count 329 10^3/uL (130-400) 03/15/24 07:36
Sodium 136 mmol/L (135-145) 03/15/24 07:36
Potassium 3.4 mmol/L (3.5-5.1) L 03/15/24 07:36
Chloride 102 mmol/L (98-107) 03/15/24 07:36
Carbon Dioxide 27 mmol/L (22-30) 03/15/24 07:36
BUN 3 mg/dl (7-17) L 03/15/24 07:36
Creatinine 0.4 mg/dL (0.6-1.0) L 03/15/24 07:36
eGFR > 60.00 03/15/24 07:36
Glucose 89 mg/dl (70-99) 03/15/24 07:36
Calcium 8.6 mg/dl (8.4-10.2) 03/15/24 07:36
Phosphorus 3.1 mg/dl (2.5-4.5) 03/14/24 06:50
Albumin 4.2 g/dl (3.5-5.0) 03/08/24 12:28
Physical Exam
-
Vital Signs:
Vital Signs
Temp Pulse Resp BP Pulse Ox
98.3 F 102 16 138/101 96
03/15/24 07:00 03/15/24 07:00 03/15/24 07:00 03/15/24 07:00 03/15/24 09:15
Cardiovascular:: Regular rate and rhythm
Respiratory:: Bilateral: Coarse
Lung Excursion:: Normal
Abdomen:: Nontender and Soft
Bowel Sounds:: Decreased
Extremity Edema:: None: Bilateral:
[2024-03-15 15:00] VITALS: BP 143/91
[2024-03-15] MEDS: KCL 260 MEQ IV (15:34)
--- NOTE | 2024-03-15 16:56 | W.PN.GS2 ---
Today's Communication / Plan
-
-- No changes from surgical perspective, conservative management of ileus and ostomy for now
Assessment / Plan
-
54F with h/o dev delay now POD#7 s/p Aj's for sigmoid volvulus
Tachycardia, stable BP and afebrile
H/H stable, no leukocytosis
Ileus present, NGT reinserted
Clinical assessment limited based on patient's ability reports symptoms. Exam with significant distention and bilious NGT output. Continue with NGT decompression and bowel rest. Will repeat abdominal x-ray in the AM.
Plan:
-- NPO, NGT to LIWS
-- Pain control: Tylenol and IV Morphine
-- IVF as per Nephrology
-- Cont abx
-- PPI for GI ppx
-- DVT ppx with Lovenox, SCDS for mechanical ppx
-- Repeat abd X-ray in AM
Subjective Data
-
Date of Service: March 15, 2024
Exam limited based on patient's mental status. Reports difficulty breathing. States abdomen feels the same.
Objective Data
-
Intake and Output
03/14/24 03/15/24 03/16/24
06:59 06:59 06:59
Intake Total / 90 1130 / 1130
Output Total 1500 / 1500 2009
Balance -1410 / -1410 -880 / -880
Intake:
IV fluids (Total) 825 / 825
IV piggybacks 155 / 155
Amount instilled into GI Tube ( 90 / 90 150 / 150
Total)
[place] Sump 90 / 90 150 / 150
Output:
Liquid stool amount 400 / 400 150 / 150
Colostomy 400 / 400 150 / 150
Gastrointestinal tube output ( 700 / 700 360 / 360
Total)
[place] Sump 700 / 700 360 / 360
Urine, Voided 400 / 400 1500 / 1500
Other:
How many times incontinent 1
MODERATE amount urine
How many times incontinent 1
SATURATED amount urine
Vital Signs
Temp Pulse Resp BP Pulse Ox
99.4 F 86 16 143/91 96
03/15/24 15:00 03/15/24 15:00 03/15/24 15:00 03/15/24 15:00 03/15/24 15:00
Lab Results
03/15/24 07:36
03/15/24 07:36
Calcium 8.6 mg/dl (8.4-10.2) 03/15/24 07:36
Phosphorus 3.1 mg/dl (2.5-4.5) 03/14/24 06:50
Magnesium 1.8 mg/dl (1.6-2.3) 03/14/24 06:50
Total Bilirubin 0.9 mg/dl (0.2-1.3) 03/08/24 12:28
AST 36 U/L (14-36) 03/08/24 12:28
ALT 16 U/L (0-35) 03/08/24 12:28
Alkaline Phosphatase 67 U/L (38-126) 03/08/24 12:28
Total Protein 6.9 g/dl (6.3-8.2) 03/08/24 12:28
Albumin 4.2 g/dl (3.5-5.0) 03/08/24 12:28
Physical Exam
-
Gen: NAD
HEENT: minimal NGT output
Abd: soft, NT, moderate distension (stable/improved), non-peritoneal, midline incision c/d/i - no erythema, ecchymosis or drainage, nickie in place, ostomy edematous with central pink mucosal, peripheral necrosis at mucocutaneous junction and
extending centrally, flatus and liquid non-bloody stool in appliance
[2024-03-15 19:39] VITALS: BP 143/90
[2024-03-15] MEDS: LEVOTHROID 37.5 MCG IV (20:47)
[2024-03-15] MEDS: LOVENOX 40 MG SC (20:49)
[2024-03-15] MEDS: DEPACON 55 MG IV (21:22)
[2024-03-15 23:02] VITALS: BP 122/76
[2024-03-16] VITALS (7 sets, daily range): BP systolic 126–165; BP diastolic 90–117
[2024-03-16] MEDS: LOPRESSOR 5 MG IV ×4 (03:15→19:57)
[2024-03-16] MEDS: ZOSYN 50 IV ×4 (03:15→21:09)
--- NOTE | 2024-03-16 08:26 | W.PN.HOSP.TC ---
Today's Communication/Plan
-
see bold
Assessment / Plan
Assessment / Plan
CT A/P: Large bowel obstruction with pronounced dilation of the colon extending to the distal sigmoid. There is apparent twisting of the sigmoid colon, seen best on coronal imaging, highly suspicious for sigmoid volvulus. There is a 10.0 x 8.3 x 8.4
cm cystic focus within the presacral/retrouterine space which may represent cystic presacral or ovarian lesion, or possible loculated fluid. There is an additional 3.4 cm hypodense lesion within the right ovary. Further evaluation with dedicated
pelvic ultrasound is recommended. There are numerous hypodense hepatic lesions with the largest measuring 8.9 cm. These appear to demonstrate peripheral, nodular discontinuous enhancement and may represent large hemangiomas although metastatic
disease is possible. Recommend MRI abdomen for further evaluation. There are numerous mildly hypodense lesions within the spleen which measure up to 1.4 cm which are indeterminant on this examination however may represent hemangiomas, although
metastasis are also possible. Further evaluation with MRI abdomen should be considered. There is elevation of the left hemidiaphragm with left basilar atelectasis. There is small volume intrahepatic free fluid. Diffuse osteopenia with scattered
sclerotic foci, possible bone islands.
Acute large bowel obstruction due to sigmoid volvulus:
Postoperative ileus:
-s/p Exploratory laparotomy, sigmoidectomy, creation end colostomy on 03/08/24
-was NPO with NGT to low-intermittent suction, NGT removed 03/10/24
-03/09/24 AM fever, was likely post-op localized peritonitis, continue Zosyn for 10 days postoperatively per general surgery
-03/12/24 advanced to clears but there is increased abdominal distention
-03/13/24 - NGT re-inserted
-03/16/24�NG tube pulled, trial of clear liquids
Severe Hypotonic Hyponatremia:
-Sodium 120 upon admission
-Likely due to intraabdominal pathology, including rapid dehydration, and psychotropic meds as well as component of SIADH
-UOsm 678, SOsm 253, Adryan 30
-Resolved, continue management as per nephrology
Hypoglycemia
-Resolved with D5 NS
Essential hypertension
-Improved with metoprolol titrate 5 mg IV every 6 hours
Other problems:
Hypothyroidism: TSH normal, cont IV synthroid
Hypokalemia: Replete prn
Intellectual disability: From nursing home
DVT prophylaxis�subcu Lovenox
Full code
MERON (Sister)- Ana María Johns
Total time spent to see the patient on the floor, examine the patient, review data and lab results, discuss treatment plan with patient, nursing staff around 40 minutes.
Physical exam
Gen: NAD, Awake and alert
Eyes: EOMI, PERRLA, no scleral icterus.
Neck: supple.
CV: remains tachy, reg, rhythm, +S1/S2, no m/r/g.
Resp: continues to remain CTAB anteriorly, no rales, wheezes, or rhonchi.
Abd: +BS, soft, NT to light palpation, mod abdominal distention
Ostomy with liquid brown stool
Skin: No rashes.
Neuro: CN 2-12 intact, non-focal.
Psych: Normal mood and affect.
Anticipated Discharge: > 48 hours
Subjective/Interval History
-
Date of Service: March 16, 2024
Patient complains of being hungry, wants to eat. No fever, no vomiting.
Objective Data
-
Labs:
Laboratory Results
03/16/24
07:14
Sodium Pending
Potassium Pending
Chloride Pending
Carbon Dioxide Pending
BUN Pending
Creatinine Pending
Glucose Pending
Calcium Pending
Vital Signs:
Vital Signs
Temp Pulse Resp BP Pulse Ox
98.3 F 92 17 126/93 96
03/16/24 07:10 03/16/24 07:10 03/16/24 07:10 03/16/24 07:10 03/16/24 07:10
I&O
03/15/24 03/16/24 03/17/24
06:59 06:59 06:59
Intake Total 1130 / 1130
Output Total 2009 1650 / 1650
Balance -880 / -880 -1650 / -1650
[2024-03-16 08:37] LABS: Blood Urea Nitrogen < 2 mg/dl (7-17); Calcium 8.7 mg/dl (8.4-10.2); Carbon Dioxide 27 mmol/L (22-30); Chloride 105 mmol/L (98-107); Estimated Creatinine Clearance 113 ml/min; Glucose 86 mg/dl (70-99); Potassium 3.3 mmol/L (3.5-5.1); Sodium 138 mmol/L (135-145); eGFR > 60.00
[2024-03-16] MEDS: D5/0.9% SODIUM CHLORIDE IV ×2 (09:24→22:47)
[2024-03-16] MEDS: NSS (PRESERVATIVE FREE) 10 ML IV (10:09)
[2024-03-16] MEDS: PROTONIX IV 40 MG IV (10:09)
[2024-03-16] MEDS: DEPACON 52.5 MG IV (10:10)
--- NOTE | 2024-03-16 10:50 | W.PN.NEPH.PH ---
Today's Communication / Plan
-
follow BMP
Assessment/Plan
-
IMP:
Acute large bowel obstruction due to sigmoid volvulus
Severe Hyponatremia
Hypothyroidism
Hypokalemia
Developmental delay
Osteopenia noted on CT
Hepatic hypodense lesions noted on CT
Ovarian cyst /lesion 10cm -on CT
Plan:
follow BMP
IVF continue
replete K
now ~7d without significant po
may need TPN soon
-
-
Date of Service: March 16, 2024
CC / HPI / ROS
-
Chief Complaint:
Hyponatremia
History of Present Illness:
Na up to 138
K low 3.3
NGT back in, NPO
Phos normal
Review of Systems:
No chest pain or shortness of breath
Labs
-
Labs:
WBC 8.4 10^3/uL (4.8-10.8) 03/15/24 07:36
RBC 3.51 10^6/uL (4.20-5.40) L 03/15/24 07:36
Hgb 10.6 g/dL (12.0-16.0) L 03/15/24 07:36
Hct 31.0 % (37.0-47.0) L 03/15/24 07:36
Plt Count 329 10^3/uL (130-400) 03/15/24 07:36
Sodium 138 mmol/L (135-145) 03/16/24 07:14
Potassium 3.3 mmol/L (3.5-5.1) L 03/16/24 07:14
Chloride 105 mmol/L (98-107) 03/16/24 07:14
Carbon Dioxide 27 mmol/L (22-30) 03/16/24 07:14
BUN < 2 mg/dl (7-17) L 03/16/24 07:14
Creatinine 0.4 mg/dL (0.6-1.0) L 03/16/24 07:14
eGFR > 60.00 03/16/24 07:14
Glucose 86 mg/dl (70-99) 03/16/24 07:14
Calcium 8.7 mg/dl (8.4-10.2) 03/16/24 07:14
Phosphorus 3.1 mg/dl (2.5-4.5) 03/14/24 06:50
Albumin 4.2 g/dl (3.5-5.0) 03/08/24 12:28
Physical Exam
-
Vital Signs:
Vital Signs
Temp Pulse Resp BP Pulse Ox
98.3 F 92 17 126/95 96
03/16/24 07:10 03/16/24 07:10 03/16/24 07:10 03/16/24 10:10 03/16/24 10:18
Cardiovascular:: Regular rate and rhythm
Respiratory:: Bilateral: Coarse
Lung Excursion:: Normal
Abdomen:: Nontender and Soft
Bowel Sounds:: Decreased
Extremity Edema:: None: Bilateral:
--- NOTE | 2024-03-16 11:11 | W.PN.GS2 ---
Today's Communication / Plan
-
`
Assessment / Plan
-
54F with h/o dev delay now POD#8 s/p Aj's for sigmoid volvulus
AFVSS
NGT was 1/2 out (30cm at nose) so i removed.
abdomen soft on exam and nontender
ostomy functioning
Plan:
-- pulled NGT
-- start clear liquid diet
-- Pain control: Tylenol and IV Morphine
-- IVF as per Nephrology
-- Cont abx for 10 days post op
-- PPI for GI ppx
-- DVT ppx with Lovenox, SCDS for mechanical ppx
Subjective Data
-
Date of Service: March 16, 2024
pt seen and examined
offer no complains
Objective Data
-
Intake and Output
03/15/24 03/16/24 03/17/24
06:59 06:59 06:59
Intake Total 1130 / 1130
Output Total 2009 1650 / 1650
Balance -880 / -880 -1650 / -1650
Intake:
IV fluids (Total) 825 / 825
IV piggybacks 155 / 155
Amount instilled into GI Tube ( 150 / 150
Total)
[place] Sump 150 / 150
Output:
Liquid stool amount 150 / 150
Colostomy 150 / 150
Gastrointestinal tube output ( 360 / 360
Total)
[place] Sump 360 / 360
Urine, Voided 1500 / 1500 1650 / 1650
Vital Signs
Temp Pulse Resp BP Pulse Ox
97.9 F 83 16 134/97 97
03/16/24 11:00 03/16/24 11:00 03/16/24 11:00 03/16/24 11:00 03/16/24 11:00
Lab Results
03/15/24 07:36
03/16/24 07:14
Calcium 8.7 mg/dl (8.4-10.2) 03/16/24 07:14
Phosphorus 3.1 mg/dl (2.5-4.5) 03/14/24 06:50
Magnesium 1.8 mg/dl (1.6-2.3) 03/14/24 06:50
Total Bilirubin 0.9 mg/dl (0.2-1.3) 03/08/24 12:28
AST 36 U/L (14-36) 03/08/24 12:28
ALT 16 U/L (0-35) 03/08/24 12:28
Alkaline Phosphatase 67 U/L (38-126) 03/08/24 12:28
Total Protein 6.9 g/dl (6.3-8.2) 03/08/24 12:28
Albumin 4.2 g/dl (3.5-5.0) 03/08/24 12:28
Physical Exam
-
NAD alert
NGT falling out
ABD: soft, ND, NTTP
ostomy in LLQ pink and edematous but significant air and liquid stool in bag
[2024-03-16] MEDS: KCL 270 MEQ IV (12:34)
[2024-03-16] MEDS: D5/0.9% SODIUM CHLORIDE 1000 IV (16:34)
[2024-03-16] MEDS: LEVOTHROID 37.5 MCG IV (17:26)
[2024-03-16] MEDS: LOVENOX 40 MG SC (17:27)
[2024-03-16] MEDS: DEPACON 55 MG IV (22:47)
[2024-03-17] VITALS (7 sets, daily range): BP systolic 119–136; BP diastolic 79–96; PULSE 95; O2SAT 97
[2024-03-17] MEDS: LOPRESSOR 5 MG IV ×4 (03:00→20:59)
[2024-03-17] MEDS: ZOSYN 50 IV (03:02)
[2024-03-17 07:51] LABS: Blood Urea Nitrogen < 2 mg/dl (7-17); Calcium 8.8 mg/dl (8.4-10.2); Carbon Dioxide 28 mmol/L (22-30); Chloride 106 mmol/L (98-107); Estimated Creatinine Clearance 113 ml/min; Glucose 90 mg/dl (70-99); Phosphorus 3.2 mg/dl (2.5-4.5); Potassium 3.5 mmol/L (3.5-5.1); Sodium 139 mmol/L (135-145); eGFR > 60.00
[2024-03-17] MEDS: NSS (PRESERVATIVE FREE) 10 ML IV (08:24)
[2024-03-17] MEDS: PROTONIX IV 40 MG IV (08:24)
--- NOTE | 2024-03-17 08:33 | W.PN.HOSP.TC ---
Today's Communication/Plan
-
see bold
Assessment / Plan
Assessment / Plan
CT A/P: Large bowel obstruction with pronounced dilation of the colon extending to the distal sigmoid. There is apparent twisting of the sigmoid colon, seen best on coronal imaging, highly suspicious for sigmoid volvulus. There is a 10.0 x 8.3 x 8.4
cm cystic focus within the presacral/retrouterine space which may represent cystic presacral or ovarian lesion, or possible loculated fluid. There is an additional 3.4 cm hypodense lesion within the right ovary. Further evaluation with dedicated
pelvic ultrasound is recommended. There are numerous hypodense hepatic lesions with the largest measuring 8.9 cm. These appear to demonstrate peripheral, nodular discontinuous enhancement and may represent large hemangiomas although metastatic
disease is possible. Recommend MRI abdomen for further evaluation. There are numerous mildly hypodense lesions within the spleen which measure up to 1.4 cm which are indeterminant on this examination however may represent hemangiomas, although
metastasis are also possible. Further evaluation with MRI abdomen should be considered. There is elevation of the left hemidiaphragm with left basilar atelectasis. There is small volume intrahepatic free fluid. Diffuse osteopenia with scattered
sclerotic foci, possible bone islands.
Acute large bowel obstruction due to sigmoid volvulus:
Postoperative ileus:
-s/p Exploratory laparotomy, sigmoidectomy, creation end colostomy on 03/08/24
-was NPO with NGT to low-intermittent suction, NGT removed 03/10/24
-03/09/24 AM fever, was likely post-op localized peritonitis, continue Zosyn for 10 days postoperatively per general surgery
-03/12/24 advanced to clears but there is increased abdominal distention
-03/13/24 - NGT re-inserted
-03/16/24�NG tube pulled, trial of clear liquids -continue as per general surgery
Severe Hypotonic Hyponatremia:
-Sodium 120 upon admission
-Likely due to intraabdominal pathology, including rapid dehydration, and psychotropic meds as well as component of SIADH
-UOsm 678, SOsm 253, Adryan 30
-Resolved, continue management as per nephrology
Hypoglycemia
-Resolved with D5 NS
Essential hypertension
-Improved with metoprolol titrate 5 mg IV every 6 hours
Other problems:
Hypothyroidism: TSH normal, cont IV synthroid
Hypokalemia: Replete prn
Intellectual disability: From [facility]
DVT prophylaxis�subcu Lovenox
Full code
POA (Sister)- Ana María Johns
Total time spent to see the patient on the floor, examine the patient, review data and lab results, discuss treatment plan with patient, nursing staff around 42 minutes.
Physical exam
Gen: NAD, Awake and alert
Eyes: EOMI, PERRLA, no scleral icterus.
Neck: supple.
CV: remains tachy, reg, rhythm, +S1/S2, no m/r/g.
Resp: continues to remain CTAB anteriorly, no rales, wheezes, or rhonchi.
Abd: +BS, soft, NT to light palpation, + abdominal distention
Ostomy with liquid brown stool
Skin: No rashes.
Neuro: CN 2-12 intact, non-focal.
Psych: Normal mood and affect.
Anticipated Discharge: > 48 hours
Subjective/Interval History
-
Date of Service: March 17, 2024
Patient reports mild abdominal pain. She states she vomited last night. No fever.
Objective Data
-
Labs:
Laboratory Results
03/17/24
06:47
Sodium 139
Potassium 3.5
Chloride 106
Carbon Dioxide 28
BUN < 2 L
Creatinine 0.4 L
Glucose 90
Calcium 8.8
Vital Signs:
Vital Signs
Temp Pulse Resp BP Pulse Ox
98.0 F 96 18 120/79 96
03/17/24 07:10 03/17/24 07:10 03/17/24 07:10 03/17/24 07:10 03/17/24 07:10
I&O
03/16/24 03/17/24 03/18/24
06:59 06:59 06:59
Intake Total 1080 / 1080
Output Total 1650 / 1650 3000 / 3000
Balance -1650 / -1650 -0 / -0
--- NOTE | 2024-03-17 09:30 | W.PN.GS2 ---
Today's Communication / Plan
-
Ostomy care.
Will stay on clears for now given abdominal distention
Assessment / Plan
-
54F with h/o dev delay now POD#9 s/p Aj's for sigmoid volvulus
Plan:
-- clear liquid diet
-- ostomy care for repouching
-- Pain control: Tylenol and IV Morphine
-- IVF as per Nephrology
-- stop abx
-- PPI for GI ppx
-- DVT ppx with Lovenox, SCDS for mechanical ppx
Time Spent
Total Time Spent with Patient (in minutes): 20
Subjective Data
-
Date of Service: March 17, 2024
Interval Events:
No acute events overnight. Slept well. Pain Controlled. Endorses some nausea and vomiting but this was denied by the nurse who took report from overnight, +bowel function. Tolerating diet.
Objective Data
-
Intake and Output
03/16/24 03/17/24 03/18/24
06:59 06:59 06:59
Intake Total 1080 / 1080
Output Total 1650 / 1650 3000 / 3000
Balance -1650 / -1650 -1920 / -1920
Intake:
Oral fluids 1080 / 1080
Output:
Liquid stool amount 300 / 300
Colostomy 300 / 300
Urine, Voided 1650 / 1650 2700 / 2700
Other:
How many times incontinent 2
MODERATE amount urine
How many times incontinent 2
SATURATED amount urine
Vital Signs
Temp Pulse Resp BP Pulse Ox
98.0 F 82 18 120/79 96
03/17/24 07:10 03/17/24 08:26 03/17/24 07:10 03/17/24 08:26 03/17/24 07:10
Lab Results
03/15/24 07:36
03/17/24 06:47
Calcium 8.8 mg/dl (8.4-10.2) 03/17/24 06:47
Phosphorus 3.2 mg/dl (2.5-4.5) 03/17/24 06:47
Magnesium 1.8 mg/dl (1.6-2.3) 03/14/24 06:50
Total Bilirubin 0.9 mg/dl (0.2-1.3) 03/08/24 12:28
AST 36 U/L (14-36) 03/08/24 12:
ALT 16 U/L (0-35) 03/08/24 12:28
Alkaline Phosphatase 67 U/L (38-126) 03/08/24 12:28
Total Protein 6.9 g/dl (6.3-8.2) 03/08/24 12:28
Albumin 4.2 g/dl (3.5-5.0) 03/08/24 12:28
Physical Exam
-
GENERAL/NEURO: Awake, Alert, no distress
CHEST: Unlabored breathing on RA
ABDOMEN: Soft, Non-Tender, Distended, ostomy is pink patent and productive of stool, still quite edematous. There is some leaking medially onto her midline incision which remains intact with nickie in place.
[2024-03-17] MEDS: D5/0.9% SODIUM CHLORIDE 1000 IV (09:32)
[2024-03-17] MEDS: DEPACON 52.5 MG IV (09:33)
--- NOTE | 2024-03-17 09:33 | W.PN.GS2 ---
Today's Communication / Plan
-
Clear liquids
Ostomy care
Assessment / Plan
-
54F with h/o dev delay now POD#9 s/p Aj's for sigmoid volvulus
AFVSS
NGT was dislodged on 03/16. No further n/v.
Ileus resolving with ostomy functioning, however still with distention
Plan:
-- Continue clear liquid diet
-- Pain control: Tylenol and Oxycodone
-- IVF as per primary team
-- Cont abx for 10 days post op
-- Stoma nurse consulted to assist with ostomy
-- PPI for GI ppx
-- Increase activity as able/PT following
-- DVT ppx with Lovenox, SCDS for mechanical ppx
Subjective Data
-
Date of Service: March 17, 2024
Patient seen and examined at bedside with Dr. Boles. Bonnie n/v but then reported she may have vomited overnight. Discussed with nursing staff who note she did not have emesis. Ostomy has leaked x2 within 24h period.
Objective Data
-
Intake and Output
03/16/24 03/17/24 03/18/24
06:59 06:59 06:59
Intake Total 1080 / 1080
Output Total 1650 / 1650 3000 / 3000
Balance -1650 / -1650 -1920 / -1920
Intake:
Oral fluids 1080 / 1080
Output:
Liquid stool amount 300 / 300
Colostomy 300 / 300
Urine, Voided 1650 / 1650 2700 / 2700
Other:
How many times incontinent 2
MODERATE amount urine
How many times incontinent 2
SATURATED amount urine
Vital Signs
Temp Pulse Resp BP Pulse Ox
98.0 F 82 18 120/79 96
03/17/24 07:10 03/17/24 08:26 03/17/24 07:10 03/17/24 08:26 03/17/24 07:10
Lab Results
03/15/24 07:36
03/17/24 06:47
Calcium 8.8 mg/dl (8.4-10.2) 03/17/24 06:47
Phosphorus 3.2 mg/dl (2.5-4.5) 03/17/24 06:47
Magnesium 1.8 mg/dl (1.6-2.3) 03/14/24 06:50
Total Bilirubin 0.9 mg/dl (0.2-1.3) 03/08/24 12:28
AST 36 U/L (14-36) 03/08/24 12:28
ALT 16 U/L (0-35) 03/08/24 12:28
Alkaline Phosphatase 67 U/L (38-126) 03/08/24 12:28
Total Protein 6.9 g/dl (6.3-8.2) 03/08/24 12:28
Albumin 4.2 g/dl (3.5-5.0) 03/08/24 12:28
Physical Exam
-
NAD alert
ABD: soft, mild distention, NTTP
ostomy in LLQ pink and edematous but with air/stool in bag. Leaking at medial edge
[2024-03-17] MEDS: KCL 40 MEQ PO (09:40)
--- NOTE | 2024-03-17 09:51 | WOUNDNOTE ---
WOC RN NOTE: WOC RN called for ostomy leaking. A new appliance was changed since last visit on 03/14. 4 inch ostomy barrier was cut too large around stoma contributing to leaking. Pouch changed with 2 3/4 inch barrier. Peristomal skin continues to
be intact. Midline skin tear progresses toward healing. Stoma necrotic appearing on lateral aspect of ostomy on 03/14, now necrotic appearing area has increased to middle of stoma. Pictures taken and uploaded to chart. TT Ofelia Olivo who will
review. Sacrum and heels intact. Will continue to follow patient during in-patient stay.
--- NOTE | 2024-03-17 16:33 | PTCARENOTE ---
Received patient this am AAOx1-2. Pt has cognitive issues secondary to developmental delays. Pt tolerated clear liquids. IVF capped as ordered. Pt OOB to chair an tolerated well. Offered no complaints. Made patient comfortable. Cont to assess
patient status.
--- NOTE | 2024-03-17 16:56 | W.PN.NEPH.PH ---
Today's Communication / Plan
-
prn IVF
Assessment/Plan
-
IMP:
Acute large bowel obstruction due to sigmoid volvulus
Severe Hyponatremia
Hypothyroidism
Hypokalemia
Developmental delay
Osteopenia noted on CT
Hepatic hypodense lesions noted on CT
Ovarian cyst /lesion 10cm -on CT
Plan:
stable electrolytes
tolerating liquids, monitor off IVF
BP stable
BUN is severely low -nutrition per surg
will s/o, call with ?s
-
-
Date of Service: March 17, 2024
CC / HPI / ROS
-
Chief Complaint:
Hyponatremia
History of Present Illness:
Na up to 139
K better at 3.5
off NGT
Phos normal
Review of Systems:
No chest pain or shortness of breath
Labs
-
Labs:
WBC 8.4 10^3/uL (4.8-10.8) 03/15/24 07:36
RBC 3.51 10^6/uL (4.20-5.40) L 03/15/24 07:36
Hgb 10.6 g/dL (12.0-16.0) L 03/15/24 07:36
Hct 31.0 % (37.0-47.0) L 03/15/24 07:36
Plt Count 329 10^3/uL (130-400) 03/15/24 07:36
Sodium 139 mmol/L (135-145) 03/17/24 06:47
Potassium 3.5 mmol/L (3.5-5.1) 03/17/24 06:47
Chloride 106 mmol/L (98-107) 03/17/24 06:47
Carbon Dioxide 28 mmol/L (22-30) 03/17/24 06:47
BUN < 2 mg/dl (7-17) L 03/17/24 06:47
Creatinine 0.4 mg/dL (0.6-1.0) L 03/17/24 06:47
eGFR > 60.00 03/17/24 06:47
Glucose 90 mg/dl (70-99) 03/17/24 06:47
Calcium 8.8 mg/dl (8.4-10.2) 03/17/24 06:47
Phosphorus 3.2 mg/dl (2.5-4.5) 03/17/24 06:47
Albumin 4.2 g/dl (3.5-5.0) 03/08/24 12:28
Physical Exam
-
Vital Signs:
Vital Signs
Temp Pulse Resp BP Pulse Ox
98.0 F 98 18 136/96 96
03/17/24 14:25 03/17/24 14:26 03/17/24 14:25 03/17/24 14:26 03/17/24 14:25
Cardiovascular:: Regular rate and rhythm
Respiratory:: Bilateral: CTA
Lung Excursion:: Normal
Abdomen:: Nontender and Soft
Extremity Edema:: None: Bilateral:
Alba Catheter: No
[2024-03-17] MEDS: LEVOTHROID 37.5 MCG IV (17:36)
[2024-03-17] MEDS: LOVENOX 40 MG SC (17:36)
[2024-03-17] MEDS: DEPACON 55 MG IV (21:01)
[2024-03-18] MEDS: LOPRESSOR 5 MG IV ×4 (02:54→19:40)
[2024-03-18 03:00] VITALS: BP 119/82
--- NOTE | 2024-03-18 07:14 | W.PN.HOSP.TC ---
Today's Communication/Plan
-
see bold
Assessment / Plan
Assessment / Plan
CT A/P: Large bowel obstruction with pronounced dilation of the colon extending to the distal sigmoid. There is apparent twisting of the sigmoid colon, seen best on coronal imaging, highly suspicious for sigmoid volvulus. There is a 10.0 x 8.3 x 8.4
cm cystic focus within the presacral/retrouterine space which may represent cystic presacral or ovarian lesion, or possible loculated fluid. There is an additional 3.4 cm hypodense lesion within the right ovary. Further evaluation with dedicated
pelvic ultrasound is recommended. There are numerous hypodense hepatic lesions with the largest measuring 8.9 cm. These appear to demonstrate peripheral, nodular discontinuous enhancement and may represent large hemangiomas although metastatic
disease is possible. Recommend MRI abdomen for further evaluation. There are numerous mildly hypodense lesions within the spleen which measure up to 1.4 cm which are indeterminant on this examination however may represent hemangiomas, although
metastasis are also possible. Further evaluation with MRI abdomen should be considered. There is elevation of the left hemidiaphragm with left basilar atelectasis. There is small volume intrahepatic free fluid. Diffuse osteopenia with scattered
sclerotic foci, possible bone islands.
Acute large bowel obstruction due to sigmoid volvulus:
Postoperative ileus:
-s/p Exploratory laparotomy, sigmoidectomy, creation end colostomy on 03/08/24
-was NPO with NGT to low-intermittent suction, NGT removed 03/10/24
-03/09/24 AM fever, was likely post-op localized peritonitis, continue Zosyn for 10 days postoperatively per general surgery
-03/12/24 advanced to clears but there is increased abdominal distention
-03/13/24 - NGT re-inserted
-03/16/24�NG tube pulled, trial of clear liquids
-03/18/24-advance to full liquids as per general surgery
Severe Hypotonic Hyponatremia:
-Sodium 120 upon admission
-Likely due to intraabdominal pathology, including rapid dehydration, and psychotropic meds as well as component of SIADH
-UOsm 678, SOsm 253, Adryan 30
-Resolved, continue management as per nephrology
Hypoglycemia
-Resolved with D5 NS
Essential hypertension
-Improved with metoprolol titrate 5 mg IV every 6 hours
Other problems:
Hypothyroidism: TSH normal, cont IV synthroid
Hypokalemia: Replete prn
Intellectual disability: From [facility]
DVT prophylaxis�subcu Lovenox
Full code
POA (Sister)- Ana María Johns
Total time spent to see the patient on the floor, examine the patient, review data and lab results, discuss treatment plan with patient, nursing staff around 40 minutes.
Physical exam
Gen: NAD, Awake and alert
Eyes: EOMI, PERRLA, no scleral icterus.
Neck: supple.
CV: remains tachy, reg, rhythm, +S1/S2, no m/r/g.
Resp: continues to remain CTAB anteriorly, no rales, wheezes, or rhonchi.
Abd: +BS, soft, NT to light palpation, + abdominal distention
Ostomy with liquid brown stool
Skin: No rashes.
Neuro: CN 2-12 intact, non-focal.
Psych: Normal mood and affect.
Anticipated Discharge: > 48 hours
Subjective/Interval History
-
Date of Service: March 18, 2024
Patient complains of being hungry, and is asking for breakfast. No fever, no vomiting.
Objective Data
-
Labs:
Laboratory Results
03/18/24
06:00
WBC Pending
Hgb Pending
Hct Pending
Plt Count Pending
Sodium Pending
Potassium Pending
Chloride Pending
Carbon Dioxide Pending
BUN Pending
Creatinine Pending
Glucose Pending
Calcium Pending
Vital Signs:
Vital Signs
Temp Pulse Resp BP Pulse Ox
98.4 F 96 18 119/82 95
03/18/24 03:00 03/18/24 03:00 03/18/24 03:00 03/18/24 03:00 03/18/24 03:00
I&O
03/17/24 03/18/24 03/19/24
06:59 06:59 06:59
Intake Total 1080 / 1080 1075 / 1075
Output Total 3000 / 3000 1150 / 1150
Balance -0 / -1919 - / -
[2024-03-18 07:50] VITALS: BP 125/81
[2024-03-18 08:29] LABS: Hematocrit 31.2 % (37.0-47.0); Hemoglobin 10.4 g/dL (12.0-16.0); Mean Corp Hgb Conc. 33.3 g/dL (33.0-37.0); Mean Corpuscular Hgb 29.8 pg (27.0-31.0); Mean Corpuscular Volume 89.4 fL (81.0-99.0); Mean Platelet Volume 9.6 fL (7.4-10.4); Platelet Count 340 10^3/uL (130-400); Red Blood Cell Count 3.49 10^6/uL (4.20-5.40); Red Cell Dist. Width 15.2 % (11.5-14.5)
[2024-03-18] MEDS: DEPACON 52.5 MG IV (08:57)
[2024-03-18] MEDS: PROTONIX IV 40 MG IV (08:59)
[2024-03-18] MEDS: NSS (PRESERVATIVE FREE) 10 ML IV (08:59)
[2024-03-18 09:31] LABS: Blood Urea Nitrogen < 2 mg/dl (7-17); Calcium 9.1 mg/dl (8.4-10.2); Carbon Dioxide 26 mmol/L (22-30); Chloride 106 mmol/L (98-107); Estimated Creatinine Clearance 113 ml/min; Glucose 70 mg/dl (70-99); Potassium 3.9 mmol/L (3.5-5.1); Sodium 138 mmol/L (135-145); eGFR > 60.00
--- NOTE | 2024-03-18 12:05 | W.PN.GS2 ---
Today's Communication / Plan
-
FLD
Assessment / Plan
-
54F with h/o dev delay now POD#10 s/p Aj's for sigmoid volvulus
Afebrile with stable vital signs
ABD distention improving, stoma productive of flatus with some stool.
Superficial necrosis to lateral aspect of stoma (wound care following with photos documenting progress); will follow expectantly and nonoperatively at this point
Tolerating clears without n/v
Pain well managed
Labs stable without leukocytosis. Following off ABX
Plan:
-- FLD with supplements
-- Wound care following
-- Pain control: Tylenol and oxycodone
-- IVF as per Nephrology
-- PPI for GI ppx
-- DVT ppx with Lovenox, SCDS for mechanical ppx
Subjective Data
-
Date of Service: March 18, 2024
Patient seen and examined at bedside with Dr. Calix. Denies pain or nausea. Tolerating diet. No problems overnight reported by nursing at bedside.
Objective Data
-
Intake and Output
03/17/24 03/18/24 03/19/24
06:59 06:59 06:59
Intake Total 1080 / 1080 1075 / 1075
Output Total 3000 / 3000 1150 / 1150
Balance -1920 / -1920 -75 / -75
Intake:
Oral fluids 1080 / 1080 820 / 820
IV fluids (Total) 150 / 150
IV piggybacks 105 / 105
Output:
Liquid stool amount 300 / 300 150 / 150
Colostomy 300 / 300 150 / 150
Urine, Voided 2700 / 2700 1000 / 1000
Other:
How many times incontinent 2 2
MODERATE amount urine
How many times incontinent 2 1
SATURATED amount urine
Vital Signs
Temp Pulse Resp BP Pulse Ox
98.1 F 88 16 125/81 96
03/18/24 07:50 03/18/24 07:50 03/18/24 07:50 03/18/24 07:50 03/18/24 09:00
Lab Results
03/18/24 07:14
03/18/24 07:14
Calcium 9.1 mg/dl (8.4-10.2) 03/18/24 07:14
Phosphorus 3.2 mg/dl (2.5-4.5) 03/17/24 06:47
Magnesium 1.8 mg/dl (1.6-2.3) 03/14/24 06:50
Total Bilirubin 0.9 mg/dl (0.2-1.3) 03/08/24 12:28
AST 36 U/L (14-36) 03/08/24 12:28
ALT 16 U/L (0-35) 03/08/24 12:28
Alkaline Phosphatase 67 U/L (38-126) 03/08/24 12:28
Total Protein 6.9 g/dl (6.3-8.2) 03/08/24 12:28
Albumin 4.2 g/dl (3.5-5.0) 03/08/24 12:28
Physical Exam
-
GENERAL/NEURO: Awake, Alert, no distress
CHEST: Unlabored breathing on RA
ABDOMEN: Soft, Non-Tender, mildly distended, ostomy is pink with superficial necrosis to lateral aspect with edema/ patent and productive of flatus and minimal liquid stool. midline incision remains intact with nickie in place.
[2024-03-18 13:09] VITALS: BP 131/79
[2024-03-18 15:41] VITALS: BP 125/91
--- NOTE | 2024-03-18 16:36 | PTCARENOTE ---
Pt noted to have stool on gown and sheets. Colostomy appliance noted to be leaking. Appliance removed. Area around stoma cleansed and noted to have some scant bleeding around the edges of stoma when wiped. Area with questionable necrosis remains
intact. New appliance applied. Will continue to monitor.
[2024-03-18] MEDS: LEVOTHROID 37.5 MCG IV (17:03)
[2024-03-18] MEDS: LOVENOX 40 MG SC (17:03)
[2024-03-18 19:30] VITALS: BP 131/73
[2024-03-18 22:06] LABS: Glucose - Point of Care 83 mg/dl (70-99)
[2024-03-18] MEDS: DEPACON 55 MG IV (22:36)
[2024-03-19] VITALS (7 sets, daily range): BP systolic 109–147; BP diastolic 68–90
[2024-03-19] MEDS: LOPRESSOR 5 MG IV ×4 (02:19→20:49)
[2024-03-19 06:40] LABS: Hematocrit 30.5 % (37.0-47.0); Hemoglobin 10.3 g/dL (12.0-16.0); Mean Corp Hgb Conc. 33.8 g/dL (33.0-37.0); Mean Corpuscular Hgb 30.1 pg (27.0-31.0); Mean Corpuscular Volume 89.2 fL (81.0-99.0); Mean Platelet Volume 9.5 fL (7.4-10.4); Platelet Count 335 10^3/uL (130-400); Red Blood Cell Count 3.42 10^6/uL (4.20-5.40); White Blood Cell Count 7.9 10^3/uL (4.8-10.8)
[2024-03-19 07:55] LABS: Blood Urea Nitrogen 3 mg/dl (7-17); Calcium 9.2 mg/dl (8.4-10.2); Carbon Dioxide 29 mmol/L (22-30); Chloride 103 mmol/L (98-107); Estimated Creatinine Clearance 113 ml/min; Glucose 81 mg/dl (70-99); Potassium 3.7 mmol/L (3.5-5.1); Sodium 139 mmol/L (135-145); eGFR > 60.00
--- NOTE | 2024-03-19 08:18 | W.PN.HOSP.TC ---
Today's Communication/Plan
-
see bold
Assessment / Plan
Assessment / Plan
CT A/P: Large bowel obstruction with pronounced dilation of the colon extending to the distal sigmoid. There is apparent twisting of the sigmoid colon, seen best on coronal imaging, highly suspicious for sigmoid volvulus. There is a 10.0 x 8.3 x 8.4
cm cystic focus within the presacral/retrouterine space which may represent cystic presacral or ovarian lesion, or possible loculated fluid. There is an additional 3.4 cm hypodense lesion within the right ovary. Further evaluation with dedicated
pelvic ultrasound is recommended. There are numerous hypodense hepatic lesions with the largest measuring 8.9 cm. These appear to demonstrate peripheral, nodular discontinuous enhancement and may represent large hemangiomas although metastatic
disease is possible. Recommend MRI abdomen for further evaluation. There are numerous mildly hypodense lesions within the spleen which measure up to 1.4 cm which are indeterminant on this examination however may represent hemangiomas, although
metastasis are also possible. Further evaluation with MRI abdomen should be considered. There is elevation of the left hemidiaphragm with left basilar atelectasis. There is small volume intrahepatic free fluid. Diffuse osteopenia with scattered
sclerotic foci, possible bone islands.
Acute large bowel obstruction due to sigmoid volvulus:
Postoperative ileus:
-s/p Exploratory laparotomy, sigmoidectomy, creation end colostomy on 03/08/24
-was NPO with NGT to low-intermittent suction, NGT removed 03/10/24
-03/09/24 AM fever, was likely post-op localized peritonitis, continue Zosyn for 10 days postoperatively per general surgery
-03/12/24 advanced to clears but there is increased abdominal distention
-03/13/24 - NGT re-inserted
-03/16/24�NG tube pulled, trial of clear liquids
-03/18/24-advanced to full liquids as per general surgery
-Continue full liquids for now as per general surgery
Superficial necrosis to lateral aspect of stoma
-Continue wound care
Severe Hypotonic Hyponatremia:
-Sodium 120 upon admission
-Likely due to intraabdominal pathology, including rapid dehydration, and psychotropic meds as well as component of SIADH
-UOsm 678, SOsm 253, Adryan 30
-Resolved, continue management as per nephrology
Hypoglycemia
-Resolved with D5 NS
Essential hypertension
Sinus tachycardia
-Improved with metoprolol titrate 5 mg IV every 6 hours
Other problems:
Hypothyroidism: TSH normal, cont IV synthroid
Hypokalemia: Replete prn
Intellectual disability: From longterm
DVT prophylaxis�subcu Lovenox
Full code
MERON (Sister)- Ana María Johns
Total time spent to see the patient on the floor, examine the patient, review data and lab results, discuss treatment plan with patient, nursing staff around 38 minutes.
Physical exam
Gen: NAD, Awake and alert
Eyes: EOMI, PERRLA, no scleral icterus.
Neck: supple.
CV: remains tachy, reg, rhythm, +S1/S2, no m/r/g.
Resp: continues to remain CTAB anteriorly, no rales, wheezes, or rhonchi.
Abd: +BS, soft, NT to light palpation, + abdominal distention
Ostomy with liquid brown stool
Skin: No rashes.
Neuro: CN 2-12 intact, non-focal.
Psych: Normal mood and affect.
Anticipated Discharge: 24 - 48 hours
Subjective/Interval History
-
Date of Service: March 19, 2024
No acute changes. No fever, no vomiting.
Objective Data
-
Labs:
Laboratory Results
03/19/24
06:29
WBC 7.9
Hgb 10.3 L
Hct 30.5 L
Plt Count 335
Sodium 139
Potassium 3.7
Chloride 103
Carbon Dioxide 29
BUN 3 L
Creatinine 0.5 L
Glucose 81
Calcium 9.2
Vital Signs:
Vital Signs
Temp Pulse Resp BP Pulse Ox
98.8 F 95 16 109/74 94
03/19/24 03:30 03/19/24 03:30 03/19/24 03:30 03/19/24 03:30 03/19/24 03:30
I&O
03/18/24 03/19/24 03/20/24
06:59 06:59 06:59
Intake Total 1075 / 1075 1380 / 1380
Output Total 1150 / 1150 600 / 600
Balance -75 / -75 780 / 780
[2024-03-19] MEDS: PROTONIX IV 40 MG IV (08:39)
[2024-03-19] MEDS: NSS (PRESERVATIVE FREE) 10 ML IV (08:39)
[2024-03-19] MEDS: DEPACON 52.5 MG IV (08:43)
--- NOTE | 2024-03-19 10:18 | W.PN.GS2 ---
Today's Communication / Plan
-
FLD, follow ostomy outputs
Assessment / Plan
-
54F with h/o dev delay now POD#11 s/p Aj's for sigmoid volvulus
Afebrile with stable vital signs
ABD distention improving, stoma productive of flatus with some stool.
Superficial necrosis to lateral aspect of stoma (wound care following with photos documenting progress); will follow expectantly and nonoperatively at this point
Tolerating fulls but ?nausea. Appliance full of flatus, minimal stool
Pain well managed
Labs stable without leukocytosis. Following off ABX
Plan:
-- Continue FLD with supplements
-- Wound care following
-- Pain control: Tylenol and oxycodone
-- IVF as per Nephrology
-- PPI for GI ppx
-- DVT ppx with Lovenox, SCDS for mechanical ppx
Subjective Data
-
Date of Service: March 19, 2024
Patient seen and examined at bedside with Dr. Calix. 'I don't feel good'. Does note she had ice cream and pudding last night. Nursing reports no events overnight. Had a little nausea but no vomiting.
Objective Data
-
Intake and Output
03/18/24 03/19/24 03/20/24
06:59 06:59 06:59
Intake Total 1075 / 1075 1380 / 1380
Output Total 1150 / 1150 600 / 600
Balance -75 / -75 780 / 780
Intake:
Oral fluids 820 / 820 1380 / 1380
IV fluids (Total) 150 / 150
IV piggybacks 105 / 105
Output:
Liquid stool amount 150 / 150 100 / 100
Colostomy 150 / 150 100 / 100
Urine, Voided 1000 / 1000 500 / 500
Other:
Number of approximated SMALL 2
amounts of urine
How many times incontinent 2
MODERATE amount urine
How many times incontinent 1
SATURATED amount urine
Vital Signs
Temp Pulse Resp BP Pulse Ox
98.2 F 100 16 119/86 96
03/19/24 07:00 03/19/24 08:36 03/19/24 07:00 03/19/24 08:36 03/19/24 07:00
Lab Results
03/19/24 06:29
03/19/24 06:29
Calcium 9.2 mg/dl (8.4-10.2) 03/19/24 06:29
Phosphorus 3.2 mg/dl (2.5-4.5) 03/17/24 06:47
Magnesium 1.8 mg/dl (1.6-2.3) 03/14/24 06:50
Total Bilirubin 0.9 mg/dl (0.2-1.3) 03/08/24 12:28
AST 36 U/L (14-36) 03/08/24 12:28
ALT 16 U/L (0-35) 03/08/24 12:28
Alkaline Phosphatase 67 U/L (38-126) 03/08/24 12:28
Total Protein 6.9 g/dl (6.3-8.2) 03/08/24 12:28
Albumin 4.2 g/dl (3.5-5.0) 03/08/24 12:28
Physical Exam
-
GENERAL/NEURO: Awake, Alert, no distress
CHEST: Unlabored breathing on RA
ABDOMEN: Soft, Non-Tender, mildly distended, ostomy is pink with superficial necrosis to lateral aspect with edema/ patent and productive of flatus and minimal liquid stool. midline incision remains intact with nickie in place.
[2024-03-19] MEDS: LOVENOX 40 MG SC (18:23)
[2024-03-19] MEDS: LEVOTHROID 37.5 MCG IV (18:24)
[2024-03-19] MEDS: DEPACON 55 MG IV (22:02)
[2024-03-20] MEDS: LOPRESSOR 5 MG IV ×2 (02:04→08:22)
[2024-03-20 02:14] VITALS: BP 124/89
[2024-03-20 07:15] VITALS: BP 109/78
--- NOTE | 2024-03-20 07:43 | W.PN.HOSP.TC ---
Today's Communication/Plan
-
Patient's diet to be advanced to regular diet. IV meds to transition to PO meds.
Assessment / Plan
Assessment / Plan
Assessment:
54 year old female with a history of hypothyroidism and developmental delay came to the hospital with abdominal distention and vomiting. Patient was diagnosed with a sigmoid volvulus and underwent exploratory laporatomy, sigmoidectomy, and creating
end colostomy. Currently patient is POD#12 following the procedure and has finished her course of antibiotic therapy.
CT A/P: Large bowel obstruction with pronounced dilation of the colon extending to the distal sigmoid. There is apparent twisting of the sigmoid colon, seen best on coronal imaging, highly suspicious for sigmoid volvulus. There is a 10.0 x 8.3 x 8.4
cm cystic focus within the presacral/retrouterine space which may represent cystic presacral or ovarian lesion, or possible loculated fluid. There is an additional 3.4 cm hypodense lesion within the right ovary. Further evaluation with dedicated
pelvic ultrasound is recommended. There are numerous hypodense hepatic lesions with the largest measuring 8.9 cm. These appear to demonstrate peripheral, nodular discontinuous enhancement and may represent large hemangiomas although metastatic
disease is possible. Recommend MRI abdomen for further evaluation. There are numerous mildly hypodense lesions within the spleen which measure up to 1.4 cm which are indeterminant on this examination however may represent hemangiomas, although
metastasis are also possible. Further evaluation with MRI abdomen should be considered. There is elevation of the left hemidiaphragm with left basilar atelectasis. There is small volume intrahepatic free fluid. Diffuse osteopenia with scattered
sclerotic foci, possible bone islands.
Plan:
#Acute large bowel obstruction due to sigmoid volvulus
-Followed by surgery team, input appreciated
-POD#12 Aj's procedure
-Finished course of antibiotic therapy
-Advanced to Regular Diet as per surgery recommendation
-Continue IV PPI
#Postoperative ileus
-Continue ambulation as tolerated and give anti-nausea medication as needed
#Superficial necrosis to lateral aspect of stoma
-Surgery team following but not expecting to operate at this time.
-Expected to fall off by itself
-Continue wound care
#Severe Hypotonic Hyponatremia:
-Sodium 120 upon admission
-Likely due to intraabdominal pathology, including rapid dehydration, and psychotropic meds as well as component of SIADH
-UOsm 678, SOsm 253, Adryan 30
-Resolved, continue management as per nephrology
#Hypoglycemia
-Resolved with D5 NS
#Essential hypertension
#Sinus tachycardia
-Improved with metoprolol titrate 5 mg IV every 6 hours
#Hypothyroidism: TSH normal, cont IV Synthroid
#Hypokalemia: Replete prn
#Intellectual disability: From alf
-Continue IV Valproate
DVT prophylaxis�subcu Lovenox
Full code
Anticipated Discharge: Within 24 hours
Subjective/Interval History
-
Date of Service: March 20, 2024
Patient was able to communicate that she is feeling well. Had difficulty understanding her at times but she says she has mild pain around the incision sites and all around her abdomen at times. According to nurse, there were no adverse overnight
events.
Objective Data
-
Labs:
Laboratory Results
03/20/24
06:34
Sodium Pending
Potassium Pending
Chloride Pending
Carbon Dioxide Pending
BUN Pending
Creatinine Pending
Glucose Pending
Calcium Pending
Vital Signs:
Vital Signs
Temp Pulse Resp BP Pulse Ox
99.0 F 100 16 124/89 97
03/20/24 02:14 03/20/24 02:14 03/20/24 02:14 03/20/24 02:14 03/20/24 02:14
I&O
03/19/24 03/20/24 03/21/24
06:59 06:59 06:59
Intake Total 1380 / 1380 200 / 200
Output Total 600 / 600 150 / 150
Balance 780 / 780 50 / 50
Review of Systems
-
Unable to obtain full review of systems at this time due to: Other (Developmental Delay)
History Source: Patient
Constitutional: Reports No Symptoms
EENT: Reports No Symptoms Reported
Respiratory: Reports No Symptoms
Cardiac: Reports No Symptoms
Abdomen/GI: Reports Abdominal Pain; Denies Nausea or Vomiting
Genitourinary: Reports No Symptoms
Musculoskeletal: Reports No Symptoms
Skin: Reports No Symptoms
Neuro: Reports No Symptoms
Endocrine: Reports No Symptoms
Hematologic / Lymphatic: Reports No Symptoms
Allergy / Immunology: Reports No Symptoms
Physical Exam
-
General: Well Developed, Well Nourished, No Apparent Distress and Comfortable
HEENT: Normocephalic, Atraumatic and Moist Mucous Membranes
Respiratory: Clear to Auscultation and Non Labored Respirations
Cardiac: Regular Rhythm and S1/S2
GI: Soft, Nontender, Nondistended and Ostomy (Producing, Ammon with superficial necrosis on lateral aspect)
Musculoskeletal: No Clubbing, No Cyanosis and No Edema
Skin: Warm and Dry
Neuro: Awake, Alert, Oriented and AO x 3
Psych: Calm and Other (Developmental Delayed)
Data Reviewed
-
Labs: Labs Reviewed by me, Discussed with Physician, Discussed with Nurse and Discussed with Patient
[2024-03-20 08:00] LABS: Blood Urea Nitrogen 3 mg/dl (7-17); Carbon Dioxide 28 mmol/L (22-30); Chloride 103 mmol/L (98-107); Estimated Creatinine Clearance 113 ml/min; Glucose 79 mg/dl (70-99); Magnesium 1.8 mg/dl (1.6-2.3); Phosphorus 3.2 mg/dl (2.5-4.5); Potassium 3.8 mmol/L (3.5-5.1); Sodium 138 mmol/L (135-145); eGFR > 60.00
[2024-03-20] MEDS: PROTONIX IV 40 MG IV (08:22)
[2024-03-20] MEDS: NSS (PRESERVATIVE FREE) 10 ML IV (08:22)
--- NOTE | 2024-03-20 08:22 | OR.RPT ---
Operative Report
Operative Report
Primary Surgeon: Abigail
Pre-op Diagnosis: Sigmoid volvulus
Post-op Diagnosis: Same
Procedure Performed: Exploratory laparotomy, sigmoidectomy, creation end colostomy
Anesthesia Type: GETA + TAP block
Specimen / Cultures: Sigmoid colon
Estimated Blood Loss: 50cc
Complications: None immediate
Operative Findings: Severely distended colon, worst at sigmoid, with torsion point low in the pelvis; patchy ischemia around the torsion point; rectal stump stapled off distal to ischemic area and tagged with 2-0 prolene; descending end colostomy
created, brisk bleeding at cut edge of stoma, virtually no contamination; roughly 50cm colon resected, large redundant transverse colon noted
Date of Surgery: 03/08/24
Indications: This 54F developed abdominal pain and on workup was found to have sigmoid volvulus. Endoscopic detorsion was attempted by Gastroenterology unsuccessfully. Exploratory laparotomy was planned.
Description of procedure: The patient was placed on the operating table in the supine position. General anesthesia was induced. A time-out was completed verifying correct patient, procedure, site, positioning, and special equipment prior to
beginning this procedure. An orogastric tube was placed. The abdomen was prepped and draped in the usual sterile fashion. A midline incision was made with cut cautery and carried down to the linea alba with electrocautery. The linea alba was divided
and the abdomen entered. Immediately a severely distended loop of colon was delivered through the wound. A small amount of turbid fluid was suctioned. The bowel was inspected and the torsion was identified low in the pelvis. Superior to the kink
there was an area of patchy necrosis. The decision was made to proceed with Aj's. A window was created in the mesentery around the rectum distal to the ischemic area. A ROBYN 80mm purple load stapler was used to transect the rectum at this
location. This was challenging due to the low distal location of the area. The stump was tagged with a 2-0 prolene suture. An area of proximal colon where the dilation was not too severe was identified and the colon was transeced here in similar
fashion. The colon was then liberated from the mesentery with voyant device and passed off the table as specimen. The descending colon was mobilized off the lateral avascular plane with blunt dissection and judicious cautery. An area of the
abdominal wall for stoma placement was identified. The stomach was palpated. A nasogastric tube was passed by Anesthesia and palpated in the stomach. A circular incision was made in the skin and the subcutaneous fat was cored out to expose the
anterior sheath. The sheath was incised in cruciate fashion and the rectus muscles were parted without dividing them to expose the posterior sheath which was also incised. Two fingers passed easily through the abdominal wall opening. The proximal
end of the descending colon was brought out through the opening and secured with a irvin clamp. The abdomen was irrigated with warm sterile saline and then closed with #1 PDS stratafix suture. The subcutaneous tissue was irrigated with sterile
saline and then closed with skin nickie. The stoma was then matured with 3-0 vicryl sutures. An aquacel dressing and stoma appliance were placed.
The patient tolerated the procedure well and was taken to the postanesthesia care unit in stable condition.
[2024-03-20] MEDS: DEPACON 52.5 MG IV (08:23)
--- NOTE | 2024-03-20 09:30 | W.PN.GS2 ---
Today's Communication / Plan
-
Regular diet
Assessment / Plan
-
54F with h/o dev delay now POD#12 s/p Aj's for sigmoid volvulus
Afebrile with stable vital signs
ABD distention improving, stoma productive of flatus with some stool.
Superficial necrosis to lateral aspect of stoma (wound care following with photos documenting progress); will follow expectantly and nonoperatively at this point
Tolerating fulls but ?nausea. Appliance full of flatus, minimal stool
Pain well managed
Labs stable without leukocytosis. Following off ABX
Plan:
-- Will advance to a regular diet
-- Wound care following, I suspect that the superficial necrosis on the stoma is from the previous edema that has now resolved, I expect this to slough off over the next few days.
-- Pain control: Tylenol and oxycodone
-- IVF as per Nephrology
-- PPI for GI ppx
-- DVT ppx with Lovenox, SCDS for mechanical ppx
Time Spent
Total Time Spent with Patient (in minutes): 20
Subjective Data
-
Date of Service: March 20, 2024
Interval Events:
No acute events overnight. Slept well. Pain Controlled. Denies Nausea/Vomiting, +bowel function. Tolerating diet.
Objective Data
-
Intake and Output
03/19/24 03/20/24 03/21/24
06:59 06:59 06:59
Intake Total 1380 / 1380 200 / 200
Output Total 600 / 600 150 / 150
Balance 780 / 780 50 / 50
Intake:
Oral fluids 1380 / 1380 200 / 200
Output:
Liquid stool amount 100 / 100 150 / 150
Colostomy 100 / 100 150 / 150
Urine, Voided 500 / 500
Other:
Number of approximated SMALL 2
amounts of urine
Number of approximated MODERATE 2
amounts of urine
How many times incontinent 2
SATURATED amount urine
Vital Signs
Temp Pulse Resp BP Pulse Ox
98.6 F 102 14 109/78 97
03/20/24 07:15 03/20/24 07:15 03/20/24 07:15 03/20/24 07:15 03/20/24 07:15
Lab Results
03/19/24 06:29
03/20/24 06:34
Calcium 9.0 mg/dl (8.4-10.2) 03/20/24 06:34
Phosphorus 3.2 mg/dl (2.5-4.5) 03/20/24 06:34
Magnesium 1.8 mg/dl (1.6-2.3) 03/20/24 06:34
Total Bilirubin 0.9 mg/dl (0.2-1.3) 03/08/24 12:28
AST 36 U/L (14-36) 03/08/24 12:28
ALT 16 U/L (0-35) 03/08/24 12:28
Alkaline Phosphatase 67 U/L (38-126) 03/08/24 12:28
Total Protein 6.9 g/dl (6.3-8.2) 03/08/24 12:28
Albumin 4.2 g/dl (3.5-5.0) 03/08/24 12:28
Physical Exam
-
GENERAL/NEURO: Awake, Alert, no distress
CHEST: Unlabored breathing on RA
ABDOMEN: Soft, Non-Tender, Non-Distended, incision clean dry and intact with nickie in place, stoma is pink with some superficial necrotic slough on the left lateral aspect of the stoma, productive of brown stool
--- NOTE | 2024-03-20 10:13 | W.PN.UPDATE ---
Update Note
Progress Note Update
I saw and evaluated the patient. I reviewed the resident�s note and agree with findings and plan as documented in the resident�s note.
Gen: NAD, Awake and alert
Eyes: EOMI, PERRLA, no scleral icterus.
Neck: supple.
CV: tachy, reg rhythm, +S1/S2, no m/r/g.
Resp: CTAB, no rales, wheezes, or rhonchi.
Abd: +BS, soft, NT, mild distention
Skin: No rashes.
Neuro: CN 2-12 intact, non-focal.
Psych: Normal mood and affect.
CT A/P: Large bowel obstruction with pronounced dilation of the colon extending to the distal sigmoid. There is apparent twisting of the sigmoid colon, seen best on coronal imaging, highly suspicious for sigmoid volvulus. There is a 10.0 x 8.3 x 8.4
cm cystic focus within the presacral/retrouterine space which may represent cystic presacral or ovarian lesion, or possible loculated fluid. There is an additional 3.4 cm hypodense lesion within the right ovary. Further evaluation with dedicated
pelvic ultrasound is recommended. There are numerous hypodense hepatic lesions with the largest measuring 8.9 cm. These appear to demonstrate peripheral, nodular discontinuous enhancement and may represent large hemangiomas although metastatic
disease is possible. Recommend MRI abdomen for further evaluation. There are numerous mildly hypodense lesions within the spleen which measure up to 1.4 cm which are indeterminant on this examination however may represent hemangiomas, although
metastasis are also possible. Further evaluation with MRI abdomen should be considered. There is elevation of the left hemidiaphragm with left basilar atelectasis. There is small volume intrahepatic free fluid. Diffuse osteopenia with scattered
sclerotic foci, possible bone islands.
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
-s/p Exploratory laparotomy, sigmoidectomy, creation end colostomy on 03/08/24
-was NPO with NGT to low-intermittent suction, NGT removed 03/10/24
-03/09/24 AM fever, was likely post-op localized peritonitis, completed a course of Zosyn
-03/12/24 advanced to clears but there was increased abdominal distention
-03/13/24: NGT re-inserted
-03/16/24: NGT pulled, trial of clear liquids
-03/18/24: advanced to full liquids as per general surgery
-03/20/24: Diet advanced to regular diet as per general surgery
Severe Hypotonic Hyponatremia:
-Sodium 120 upon admission
-Likely due to intraabdominal pathology, including rapid dehydration, and psychotropic meds as well as component of SIADH
-UOsm 678, SOsm 253, Adryan 30
-was seen by renal
-resolved
Other problems:
Superficial necrosis to lateral aspect of stoma: cont wound care
Hypoglycemia, resolved with D5 NS
Essential hypertension, Sinus tachycardia: cont IV BB
Hypothyroidism: TSH normal, cont IV synthroid
Hypokalemia, resolved
Intellectual disability: From care home
FULL/Lovenox
POA (Sister)- Ana María Andreas
Likely d/c tomorrow.
[2024-03-20 11:40] VITALS: BP 111/79
[2024-03-20] MEDS: SYNTHROID 50 MCG PO (14:30)
--- NOTE | 2024-03-20 15:48 | WOUNDNOTE ---
[facility] RN NOTE: Visited patient to follow up on ostomy management. Per chart review pouch last changed due to leaking on 03/18. Patient found to have medical tape on edges of ostomy barrier and over stapled incision. All medical tape removed and skin
intact. Ostomy with decreased necrotic areas today. Peristomal skin intact. Suspect leaking due to liquid ostomy output. Patient transitioned to regular diet today and hopefully this will cause stool to thicken. Ostomy changed today with 4 inch
barrier # [id number], Eakins seal and pouch# [id number] to also address leaking. Midline incision covered with sterile 4x4 and micropore tape. Vaseline and silicone foam applied to scabbed skin tear. SPD called for both 4 inch and 2 3/4 inch appliances and
Eakins seal. Per chart review patient may be discharged tomorrow. All discharge instructions updated and supplies are at bedside. Will continue to follow as needed.
[2024-03-20 16:00] VITALS: BP 113/83
[2024-03-20] MEDS: LOVENOX 40 MG SC (17:06)
[2024-03-20 18:47] LABS: Hematocrit 30.2 % (37.0-47.0); Hemoglobin 10.3 g/dL (12.0-16.0); Mean Corp Hgb Conc. 34.1 g/dL (33.0-37.0); Mean Corpuscular Hgb 30.4 pg (27.0-31.0); Mean Corpuscular Volume 89.1 fL (81.0-99.0); Mean Platelet Volume 9.5 fL (7.4-10.4); Platelet Count 363 10^3/uL (130-400); Red Blood Cell Count 3.39 10^6/uL (4.20-5.40); Red Cell Dist. Width 15.5 % (11.5-14.5); White Blood Cell Count 7.1 10^3/uL (4.8-10.8)
[2024-03-20 18:54] LABS: Lactic Acid 0.8 mmol/L (0.7-2.0)
[2024-03-20 19:00] VITALS: BP 138/93
[2024-03-20] MEDS: LOPRESSOR 25 MG PO (20:14)
[2024-03-20] MEDS: DEPAKOTE ER (24 HR RELEASE) 500 MG PO (21:28)
[2024-03-20 23:00] VITALS: BP 129/96
[2024-03-21] MEDS: TYLENOL 1000 MG PO ×2 (00:14→06:17)
[2024-03-21 03:00] VITALS: BP 122/86
[2024-03-21] MEDS: SYNTHROID 50 MCG PO (06:05)
[2024-03-21 07:00] VITALS: BP 141/96
[2024-03-21 07:27] LABS: Hematocrit 32.9 % (37.0-47.0); Hemoglobin 10.8 g/dL (12.0-16.0); Mean Corp Hgb Conc. 32.8 g/dL (33.0-37.0); Mean Corpuscular Volume 91.4 fL (81.0-99.0); Mean Platelet Volume 10.1 fL (7.4-10.4); Platelet Count 371 10^3/uL (130-400); Red Cell Dist. Width 15.5 % (11.5-14.5); White Blood Cell Count 6.7 10^3/uL (4.8-10.8)
[2024-03-21 07:57] LABS: ALT (SGPT) 13 U/L (0-35); AST (SGOT) 23 U/L (14-36); Albumin 3.1 g/dl (3.5-5.0); Alkaline Phosphatase 73 U/L (38-126); Blood Urea Nitrogen 4 mg/dl (7-17); Calcium 9.3 mg/dl (8.4-10.2); Carbon Dioxide 27 mmol/L (22-30); Chloride 105 mmol/L (98-107); Estimated Creatinine Clearance 113 ml/min; Glucose 85 mg/dl (70-99); Magnesium 1.8 mg/dl (1.6-2.3); Phosphorus 3.3 mg/dl (2.5-4.5); Sodium 139 mmol/L (135-145); Total Bilirubin 0.5 mg/dl (0.2-1.3); Total Protein 5.9 g/dl (6.3-8.2); Triglycerides 118 mg/dl (10-149); eGFR > 60.00
[2024-03-21 08:15] LABS: Prealbumin (Transthyretin) 6.8 mg/dl (17.6-36.0)
--- NOTE | 2024-03-21 08:17 | W.PN.HOSP.TC ---
Today's Communication/Plan
-
Continue monitoring for any difficulties with diet. Monitor Ostomy output.
Assessment / Plan
Assessment / Plan
Assessment:
54 year old female with a history of hypothyroidism and developmental delay came to the hospital with abdominal distention and vomiting. Patient was diagnosed with a sigmoid volvulus and underwent exploratory laporatomy, sigmoidectomy, and creating
end colostomy. Currently patient is POD#13 following the procedure and has finished her course of antibiotic therapy. She has been able to tolerate her regular diet well.
CT A/P: Large bowel obstruction with pronounced dilation of the colon extending to the distal sigmoid. There is apparent twisting of the sigmoid colon, seen best on coronal imaging, highly suspicious for sigmoid volvulus. There is a 10.0 x 8.3 x 8.4
cm cystic focus within the presacral/retrouterine space which may represent cystic presacral or ovarian lesion, or possible loculated fluid. There is an additional 3.4 cm hypodense lesion within the right ovary. Further evaluation with dedicated
pelvic ultrasound is recommended. There are numerous hypodense hepatic lesions with the largest measuring 8.9 cm. These appear to demonstrate peripheral, nodular discontinuous enhancement and may represent large hemangiomas although metastatic
disease is possible. Recommend MRI abdomen for further evaluation. There are numerous mildly hypodense lesions within the spleen which measure up to 1.4 cm which are indeterminant on this examination however may represent hemangiomas, although
metastasis are also possible. Further evaluation with MRI abdomen should be considered. There is elevation of the left hemidiaphragm with left basilar atelectasis. There is small volume intrahepatic free fluid. Diffuse osteopenia with scattered
sclerotic foci, possible bone islands.
Plan:
#Acute large bowel obstruction due to sigmoid volvulus
-Followed by surgery team, input appreciated
-POD#12 Aj's procedure
-Finished course of antibiotic therapy
-Advanced to Regular Diet as per surgery recommendation
-Switched IV medications to PO
-Able to tolerate diet
-Continue PO PPI
#Postoperative ileus
-Continue ambulation as tolerated and give anti-nausea medication as needed
#Superficial necrosis to lateral aspect of stoma
-Surgery team following but not expecting to operate at this time.
-Expected to fall off by itself
-Continue wound care
#Severe Hypotonic Hyponatremia:
-Sodium 120 upon admission
-Likely due to intraabdominal pathology, including rapid dehydration, and psychotropic meds as well as component of SIADH
-UOsm 678, SOsm 253, Adryan 30
-Resolved, continue management as per nephrology
#Hypoglycemia
-Resolved with D5 NS
#Essential hypertension
#Sinus tachycardia
-Improved with metoprolol, switched to PO yesterday
#Hypothyroidism: TSH normal, cont IV Synthroid
#Hypokalemia: Replete prn
#Intellectual disability: From alf
-Switched to PO Depakote
DVT prophylaxis�subcu Lovenox
Full code
Anticipated Discharge: Within 24 hours
Subjective/Interval History
-
Date of Service: March 21, 2024
Patient much more alert and coherent today. Says she is feeling much more energetic now after she was able to get solid food yesterday.
Objective Data
-
Labs:
Laboratory Results
03/21/24
06:25
WBC 6.7
Hgb 10.8 L
Hct 32.9 L
Plt Count 371
Sodium 139
Potassium 4.0
Chloride 105
Carbon Dioxide 27
BUN 4 L
Creatinine 0.4 L
Glucose 85
Calcium 9.3
Total Bilirubin 0.5
AST 23
ALT 13
Alkaline Phosphatase 73
Vital Signs:
Vital Signs
Temp Pulse Resp BP Pulse Ox
97.8 F 99 14 122/86 94
03/21/24 03:00 03/21/24 03:00 03/21/24 03:00 03/21/24 03:00 03/21/24 03:00
I&O
03/20/24 03/21/24 03/22/24
06:59 06:59 06:59
Intake Total 200 / 200 770 / 770
Output Total 150 / 150
Balance 50 / 50 770 / 770
Review of Systems
-
History Source: Patient
Constitutional: Denies Sleep Disturbance
EENT: Reports No Symptoms Reported
Respiratory: Denies Cough or Trouble Breathing
Cardiac: Denies Chest Pain or Palpitations
Abdomen/GI: Denies Abdominal Pain, Nausea, Vomiting, Bloody Stools or Black Stools
Genitourinary: Reports No Symptoms
Musculoskeletal: Reports No Symptoms
Skin: Reports No Symptoms
Neuro: Reports No Symptoms
Endocrine: Reports No Symptoms
Hematologic / Lymphatic: Reports No Symptoms
Allergy / Immunology: Reports No Symptoms
Physical Exam
-
General: No Apparent Distress, Comfortable and Conversant
HEENT: Normocephalic and Atraumatic
Respiratory: Clear to Auscultation and Non Labored Respirations
Cardiac: Regular Rhythm and S1/S2
GI: Soft, Nontender, Nondistended and Ostomy (Producing stool and flatus, pink)
Musculoskeletal: No Clubbing, No Cyanosis and No Edema
Skin: Warm and Dry
Neuro: Awake, Alert and No Sensory Deficits
Psych: Calm
Data Reviewed
-
Labs: Labs Reviewed by me, Discussed with Physician, Discussed with Nurse and Discussed with Patient
[2024-03-21] MEDS: LOPRESSOR 25 MG PO (08:21)
[2024-03-21] MEDS: PROTONIX 40 MG PO (08:21)
[2024-03-21] MEDS: DEPAKOTE ER (24 HR RELEASE) 250 MG PO (08:21)
--- NOTE | 2024-03-21 10:17 | W.PN.GS2 ---
Addendum entered and electronically signed by Krishan Torre MD 03/21/24 14:21:
CDI:
Acute blood loss anemia (due to intraop losses) and hemodilution
Original Note:
Today's Communication / Plan
-
-- NPO for UGI/SBFT today
Assessment / Plan
-
Patient is a 54 yo F with h/o developmental delay now POD#13 s/p Aj's for sigmoid volvulus
Low grade fevers, stable vital signs
Normal WBC
ABD distention and ileus likely combination or post-op and chronic dysmotility, clinically improving with stoma productive of flatus and stool, continues to have gaseous bowel distension on CT and X-ray, plan for SBFT today
Superficial necrosis to lateral aspect of stoma (wound care following with photos documenting progress), will follow expectantly and nonoperatively at this point, expect that much of this was due to edema and has stabilized
Plan:
-- NPO for UGI/SBFT today
-- Wound care following, suspect that the superficial necrosis on the stoma is from the previous edema (improving), expect this to slough off over the next few days.
-- Pain control: Tylenol and Ibuprofen, minimize narcotics as this may be contributing to patients underlying motility issues
-- PPI for GI ppx
-- DVT ppx with Lovenox, SCDS for mechanical ppx
Subjective Data
-
Date of Service: March 21, 2024
No complaints. Denies nausea or vomiting. Denies abdominal pain. Low-grade fever yesterday evening.
Objective Data
-
Intake and Output
03/20/24 03/21/24 03/22/24
06:59 06:59 06:59
Intake Total 200 / 200 770 / 770
Output Total 150 / 150
Balance 50 / 50 770 / 770
Intake:
Oral fluids 200 / 200 720 / 720
IV piggybacks 50 / 50
Output:
Liquid stool amount 150 / 150
Colostomy 150 / 150
Other:
Number of approximated MODERATE 2
amounts of urine
How many times incontinent 2 3
SATURATED amount urine
Vital Signs
Temp Pulse Resp BP Pulse Ox
98.3 F 109 18 141/96 96
03/21/24 07:00 03/21/24 08:21 03/21/24 07:00 03/21/24 08:21 03/21/24 07:00
Lab Results
03/21/24 06:25
03/21/24 06:25
Calcium 9.3 mg/dl (8.4-10.2) 03/21/24 06:25
Phosphorus 3.3 mg/dl (2.5-4.5) 03/21/24 06:25
Magnesium 1.8 mg/dl (1.6-2.3) 03/21/24 06:25
Total Bilirubin 0.5 mg/dl (0.2-1.3) 03/21/24 06:25
AST 23 U/L (14-36) 03/21/24 06:25
ALT 13 U/L (0-35) 03/21/24 06:25
Alkaline Phosphatase 73 U/L (38-126) 03/21/24 06:25
Total Protein 5.9 g/dl (6.3-8.2) L 03/21/24 06:25
Albumin 3.1 g/dl (3.5-5.0) L 03/21/24 06:25
Physical Exam
-
Gen: NAD, improved energy
Abd: soft, NT/ND, non-peritoneal, midline incision c/d/i - no erythema, ecchymosis or drainage, nickie in place, ostomy - less edematous, flatus and minimal stool particulate in appliance, peripheral/lateral mucosal sloughing and necrosis (stable)
--- NOTE | 2024-03-21 11:48 | PN.CDI ---
CDI
- -
CDI:
Physician Documentation Request
Admit Date: 03/08/24 17:07
Dear Doctor Yelitza,
Please review the following and provide your response in the progress notes.
Clinical Indicators:
03/08 Procedure Performed: Exploratory laparotomy, sigmoidectomy, creation end colostomy
#...Estimated Blood Loss: 50cc
PN, 03/11
#Acute anemia present, suspect secondary to fluid shifts/hemodilution
#...and expected intraop losses.
Laboratory Tests
03/08/24 03/09/24 03/10/24
: 04:02 05:31
Hgb 13.1 12.4 11.3 L
03/11/24 03/11/24 03/12/24
04:42 14:38 03:57
Hgb 9.8 L 10.6 L 10.2 L
03/13/24 03/14/24 03/15/24
07:45 06:50 07:36
Hgb 10.6 L 11.1 L 10.6 L
03/18/24 03/19/24 03/20/24
07:14 06:29 18:30
Hgb 10.4 L 10.3 L 10.3 L
Based on the above and your clinical assessment, please clarify, the type of anemia evaluated, monitored and/or treated?
Acute blood loss anemia (due to intraop losses) and hemodilution
Acute anemia due to hemodilution only
Other(please specify)
Use of terms such as suspected, likely, concern for, or probable (associated with a specific diagnosis that is being evaluated, monitored, or treated as if it exists) are acceptable and can be coded in the inpatient setting, when documented at the
time of discharge.
Thank you,
Wanda Manriquez RN BSN CCDS
CDI Specialist
please contact via tiger text
Please use your independent medical judgment in providing your response.
--- NOTE | 2024-03-21 12:23 | W.PN.UPDATE ---
Update Note
Progress Note Update
I saw and evaluated the patient. I reviewed the resident�s note and agree with findings and plan as documented in the resident�s note.
No new complaints.
Gen: NAD, Awake and alert
Eyes: EOMI, PERRLA, no scleral icterus.
Neck: supple.
CV: Remains tachy, reg rhythm, +S1/S2, no m/r/g.
Resp: CTAB anteriorly, no rales, wheezes, or rhonchi.
Abd: Remains +BS, soft, NT, mild distention
Skin: No rashes.
Neuro: CN 2-12 intact, non-focal.
Psych: Normal mood and affect.
CT A/P: Large bowel obstruction with pronounced dilation of the colon extending to the distal sigmoid. There is apparent twisting of the sigmoid colon, seen best on coronal imaging, highly suspicious for sigmoid volvulus. There is a 10.0 x 8.3 x 8.4
cm cystic focus within the presacral/retrouterine space which may represent cystic presacral or ovarian lesion, or possible loculated fluid. There is an additional 3.4 cm hypodense lesion within the right ovary. Further evaluation with dedicated
pelvic ultrasound is recommended. There are numerous hypodense hepatic lesions with the largest measuring 8.9 cm. These appear to demonstrate peripheral, nodular discontinuous enhancement and may represent large hemangiomas although metastatic
disease is possible. Recommend MRI abdomen for further evaluation. There are numerous mildly hypodense lesions within the spleen which measure up to 1.4 cm which are indeterminant on this examination however may represent hemangiomas, although
metastasis are also possible. Further evaluation with MRI abdomen should be considered. There is elevation of the left hemidiaphragm with left basilar atelectasis. There is small volume intrahepatic free fluid. Diffuse osteopenia with scattered
sclerotic foci, possible bone islands.
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
-s/p Exploratory laparotomy, sigmoidectomy, creation end colostomy on 03/08/24
-was NPO with NGT to low-intermittent suction, NGT removed 03/10/24
-03/09/24 AM fever, was likely post-op localized peritonitis, completed a course of Zosyn
-03/12/24 advanced to clears but there was increased abdominal distention
-03/13/24: NGT re-inserted
-03/16/24: NGT pulled, trial of clear liquids
-03/18/24: advanced to full liquids as per general surgery
-03/20/24: Diet advanced to regular diet as per general surgery
-now NPO for UGI-series with SBFT
Severe Hypotonic Hyponatremia:
-Sodium 120 upon admission
-Likely due to intraabdominal pathology, including rapid dehydration, and psychotropic meds as well as component of SIADH
-UOsm 678, SOsm 253, Adryan 30
-was seen by renal
-resolved
Other problems:
Superficial necrosis to lateral aspect of stoma: cont wound care
Hypoglycemia, resolved with D5 NS
Essential hypertension, Sinus tachycardia: increase Lopressor to 50mg BID
Hypothyroidism: TSH normal, cont Synthroid
Hypokalemia, resolved
Intellectual disability: From skilled nursing
FULL/Lovenox
POA (Sister)- Ana María Andreas
Request to Drs. Torre and Abigail made to transfer to surgical service.
[2024-03-21 15:00] VITALS: BP 125/94
[2024-03-21] MEDS: LOVENOX 40 MG SC (17:12)
--- NOTE | 2024-03-21 17:43 | CM ---
Reviewed PT notes. Patient progressing well in therapy. Will need to review patient's functional status with custodial prior to discharge to ensure that they can accommodate needs.
Plan: Case management will continue to follow and assist with discharge planning. Alf vrs. SNF.
[2024-03-21 19:23] VITALS: BP 147/84
[2024-03-21] MEDS: LOPRESSOR 50 MG PO (21:00)
[2024-03-21] MEDS: DEPAKOTE ER (24 HR RELEASE) 500 MG PO (21:34)
[2024-03-21 23:40] VITALS: BP 121/81
[2024-03-22] VITALS (8 sets, daily range): BP systolic 104–126; BP diastolic 64–83; PULSE 56–89; O2SAT 96
[2024-03-22] MEDS: SYNTHROID 50 MCG PO (05:09)
--- NOTE | 2024-03-22 07:47 | W.PN.GS2 ---
Today's Communication / Plan
-
ADAT
Assessment / Plan
-
Patient is a 54 yo F with h/o developmental delay now POD#14 s/p Aj's for sigmoid volvulus
AF, intermittent tachycardia, suspect this is baseline
Normal WBC
Not requiring narcotics
ABD distention and ileus likely combination or post-op and chronic dysmotility, clinically improving with stoma productive of flatus and stool, SBFT with 2:40 transit to cecum, slight delay, likely 2/2 mild ileus
Superficial necrosis to lateral aspect of stoma (wound care following with photos documenting progress), will follow expectantly and nonoperatively at this point, expect that much of this was due to edema and has stabilized
Plan:
-- ADAT to [facility]
-- Wound care following, suspect that the superficial necrosis on the stoma is from the previous edema (improving), expect this to slough off over the next few days.
-- Pain control: Tylenol and Ibuprofen, minimize narcotics as this may be contributing to patients underlying motility issues
-- PPI for GI ppx
-- PT/OT
-- DVT ppx with Lovenox, SCDS for mechanical ppx
-- Dispo planning
Subjective Data
-
Date of Service: March 22, 2024
No complaints. Denies abd pain, denies n/v. Reports valdemar cld.
Objective Data
-
Intake and Output
03/21/24 03/22/24 03/23/24
06:59 06:59 06:59
Intake Total 770 / 770 240 / 240
Output Total 1400 / 1400
Balance 770 / 770 -1160 / -1160
Intake:
Oral fluids 720 / 720 240 / 240
IV piggybacks 50 / 50
Output:
Liquid stool amount 1400 / 1400
Colostomy 1400 / 1400
Other:
How many times incontinent 1
SMALL amount urine
How many times incontinent 3 2
SATURATED amount urine
Vital Signs
Temp Pulse Resp BP Pulse Ox
97.6 F 102 16 114/80 94
03/22/24 03:37 03/22/24 03:37 03/22/24 03:37 03/22/24 03:37 03/22/24 03:37
Lab Results
03/21/24 06:25
03/21/24 06:25
Calcium 9.3 mg/dl (8.4-10.2) 03/21/24 06:25
Phosphorus 3.3 mg/dl (2.5-4.5) 03/21/24 06:25
Magnesium 1.8 mg/dl (1.6-2.3) 03/21/24 06:25
Total Bilirubin 0.5 mg/dl (0.2-1.3) 03/21/24 06:25
AST 23 U/L (14-36) 03/21/24 06:25
ALT 13 U/L (0-35) 03/21/24 06:25
Alkaline Phosphatase 73 U/L (38-126) 03/21/24 06:25
Total Protein 5.9 g/dl (6.3-8.2) L 03/21/24 06:25
Albumin 3.1 g/dl (3.5-5.0) L 03/21/24 06:25
Physical Exam
-
Gen: NAD
Abd: soft, nt, incision cdi with nickie, stoma PPV, lateral area of mucosal slough improving
--- NOTE | 2024-03-22 08:41 | W.PN.HOSP.TC ---
Today's Communication/Plan
-
see bold
Assessment / Plan
Assessment / Plan
Gen: NAD, Awake and alert
Eyes: EOMI, PERRLA, no scleral icterus.
Neck: supple.
CV: continues to remain tachy, reg rhythm, +S1/S2, no m/r/g.
Resp: CTAB anteriorly, no rales, wheezes, or rhonchi.
Abd: continues to remain +BS, soft, NT, mild distention
Skin: No rashes.
Neuro: remains CN 2-12 intact, non-focal.
Psych: Normal mood and affect.
CT A/P: Large bowel obstruction with pronounced dilation of the colon extending to the distal sigmoid. There is apparent twisting of the sigmoid colon, seen best on coronal imaging, highly suspicious for sigmoid volvulus. There is a 10.0 x 8.3 x 8.4
cm cystic focus within the presacral/retrouterine space which may represent cystic presacral or ovarian lesion, or possible loculated fluid. There is an additional 3.4 cm hypodense lesion within the right ovary. Further evaluation with dedicated
pelvic ultrasound is recommended. There are numerous hypodense hepatic lesions with the largest measuring 8.9 cm. These appear to demonstrate peripheral, nodular discontinuous enhancement and may represent large hemangiomas although metastatic
disease is possible. Recommend MRI abdomen for further evaluation. There are numerous mildly hypodense lesions within the spleen which measure up to 1.4 cm which are indeterminant on this examination however may represent hemangiomas, although
metastasis are also possible. Further evaluation with MRI abdomen should be considered. There is elevation of the left hemidiaphragm with left basilar atelectasis. There is small volume intrahepatic free fluid. Diffuse osteopenia with scattered
sclerotic foci, possible bone islands.
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
-s/p Exploratory laparotomy, sigmoidectomy, creation end colostomy on 03/08/24
-was NPO with NGT to low-intermittent suction, NGT removed 03/10/24
-03/09/24AM fever, was likely post-op localized peritonitis, completed a course of Zosyn
-03/12/24: advanced to clears but there was increased abdominal distention
-03/13/24: NGT re-inserted
-03/16/24: NGT pulled, trial of clear liquids
-03/18/24: advanced to full liquids as per general surgery
-03/20/24: Diet advanced to regular diet as per general surgery
-03/21/24: made NPO for UGI-series with SBFT which showed findings suggesting mild diffuse ileus without evidence for obstruction.
-03/22/24: Case discussed with Dr. Hayes, likely advance diet to low residue today with goal for d/c tomorrow
Severe Hypotonic Hyponatremia:
-Sodium 120 upon admission
-Likely due to intraabdominal pathology, including rapid dehydration, and psychotropic meds as well as component of SIADH
-UOsm 678, SOsm 253, Adryan 30
-was seen by renal
-resolved
Other problems:
Superficial necrosis to lateral aspect of stoma: cont wound care
Hypoglycemia, resolved with D5 NS
Essential hypertension, Sinus tachycardia: cont Lopressor
Hypothyroidism: TSH normal, cont Synthroid
Hypokalemia, resolved
Intellectual disability: From longterm
FULL/Lovenox
OSVALDOA (Sister)- Ana María Johns
Pt is now on surgical service with hospitalist as individual pension consultant.
Anticipated Discharge: Within 24 hours
Subjective/Interval History
-
Date of Service: March 22, 2024
No new complaints.
Objective Data
-
Vital Signs:
Vital Signs
Temp Pulse Resp BP Pulse Ox
98.9 F 102 17 107/75 96
03/22/24 07:00 03/22/24 07:00 03/22/24 07:00 03/22/24 07:00 03/22/24 07:00
I&O
03/21/24 03/22/24 03/23/24
06:59 06:59 06:59
Intake Total 770 / 770 240 / 240
Output Total 1400 / 1400
Balance 770 / 770 -1160 / -1160
[2024-03-22] MEDS: DEPAKOTE ER (24 HR RELEASE) 250 MG PO (08:47)
[2024-03-22] MEDS: PROTONIX 40 MG PO (08:47)
[2024-03-22] MEDS: LOPRESSOR 50 MG PO ×2 (08:47→21:04)
--- NOTE | 2024-03-22 11:47 | WOUNDNOTE ---
WOC RN NOTE: Patient visited to follow up on ostomy function. Patient's nurse, Gigi, from [facility] was present at time of assessment. No leaking noted from ostomy pouch. Reviewed ostomy care with Gigi, who stated she does have experience with
ostomies. Gigi given all information on contacting WOC RN after discharge and where to order supplies. Will continue to follow as needed.
[2024-03-22] MEDS: LOVENOX 40 MG SC (17:32)
[2024-03-22] MEDS: DEPAKOTE ER (24 HR RELEASE) 500 MG PO (21:04)
[2024-03-23 03:45] VITALS: BP 106/72
--- NOTE | 2024-03-23 04:54 | PTCARENOTE ---
Pt had no episode of urination during shift and RN went to bladder scan pt 1051 on bladder scanner. RN straight cath pt for about 300, RN utilized 16fr to straight cath for second time and pt was able to tolerate and RN only obtained about 50ml
from using the 16fr. RN called CUSTOMER SUPPORT ADVISOR and CUSTOMER SUPPORT ADVISOR placed the order to have Alba in for Acute urinary retention.
[2024-03-23] MEDS: SYNTHROID 50 MCG PO (05:10)
[2024-03-23 07:00] VITALS: BP 130/80
[2024-03-23 07:24] LABS: Urine Albumin Trace (Neg - Trace); Urine Bilirubin 1+ (Negative); Urine Character Clear (Clear); Urine Color Yellow; Urine Glucose Negative (Negative); Urine Ketone Trace (Negative); Urine Leukocyte Negative (Negative); Urine Nitrite Negative (Negative); Urine Occult Blood Negative (Negative); Urine Specific Gravity 1.025 (<1.030); Urine Urobilinogen 3+ (Neg - 1+)
[2024-03-23] MEDS: DEPAKOTE ER (24 HR RELEASE) 250 MG PO (07:51)
[2024-03-23] MEDS: PROTONIX 40 MG PO (07:51)
[2024-03-23] MEDS: LOPRESSOR 50 MG PO ×2 (07:51→21:08)
--- NOTE | 2024-03-23 10:04 | W.PN.HOSP.TC ---
Today's Communication/Plan
-
likely d/c today
Assessment / Plan
Assessment / Plan
Gen: NAD, Awake and alert
Eyes: EOMI, PERRLA, no scleral icterus.
Neck: supple.
CV: RRR, +S1/S2, no m/r/g.
Resp: remains CTAB anteriorly, no rales, wheezes, or rhonchi.
Abd: +BS, soft, NT, mild distention
Skin: No rashes.
Neuro: continues to remain CN 2-12 intact, non-focal.
Psych: Normal mood and affect.
CT A/P: Large bowel obstruction with pronounced dilation of the colon extending to the distal sigmoid. There is apparent twisting of the sigmoid colon, seen best on coronal imaging, highly suspicious for sigmoid volvulus. There is a 10.0 x 8.3 x 8.4
cm cystic focus within the presacral/retrouterine space which may represent cystic presacral or ovarian lesion, or possible loculated fluid. There is an additional 3.4 cm hypodense lesion within the right ovary. Further evaluation with dedicated
pelvic ultrasound is recommended. There are numerous hypodense hepatic lesions with the largest measuring 8.9 cm. These appear to demonstrate peripheral, nodular discontinuous enhancement and may represent large hemangiomas although metastatic
disease is possible. Recommend MRI abdomen for further evaluation. There are numerous mildly hypodense lesions within the spleen which measure up to 1.4 cm which are indeterminant on this examination however may represent hemangiomas, although
metastasis are also possible. Further evaluation with MRI abdomen should be considered. There is elevation of the left hemidiaphragm with left basilar atelectasis. There is small volume intrahepatic free fluid. Diffuse osteopenia with scattered
sclerotic foci, possible bone islands.
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
-s/p Exploratory laparotomy, sigmoidectomy, creation end colostomy on 03/08/24
-was NPO with NGT to low-intermittent suction, NGT removed 03/10/24
-03/09/24AM fever, was likely post-op localized peritonitis, completed a course of Zosyn
-03/12/24: advanced to clears but there was increased abdominal distention
-03/13/24: NGT re-inserted
-03/16/24: NGT pulled, trial of clear liquids
-03/18/24: advanced to full liquids as per general surgery
-03/20/24: Diet advanced to regular diet as per general surgery
-03/21/24: made NPO for UGI-series with SBFT which showed findings suggesting mild diffuse ileus without evidence for obstruction.
-03/22/24: diet advanced to low residue
Severe Hypotonic Hyponatremia:
-Sodium 120 upon admission
-Likely due to intraabdominal pathology, including rapid dehydration, and psychotropic meds as well as component of SIADH
-UOsm 678, SOsm 253, Adryan 30
-was seen by renal
-resolved
Other problems:
Superficial necrosis to lateral aspect of stoma: cont wound care
Hypoglycemia, resolved with D5 NS
Essential hypertension, Sinus tachycardia: cont Lopressor
Hypothyroidism: TSH normal, cont Synthroid
Hypokalemia, resolved
Intellectual disability: From jail
FULL/Lovenox
MERON (Sister)- Ana María Johns
Pt is now on surgical service with hospitalist as communication consultant.
Anticipated Discharge: Today
Subjective/Interval History
-
Date of Service: March 23, 2024
No new complaints.
Objective Data
-
Vital Signs:
Vital Signs
Temp Pulse Resp BP Pulse Ox
97.8 F 93 16 130/80 97
03/23/24 07:00 03/23/24 07:51 03/23/24 07:00 03/23/24 07:51 03/23/24 07:00
I&O
01/08/25 01/09/25 01/10/25
06:59 06:59 06:59
Intake Total 240 / 240 1800 / 1800
Output Total 1400 / 1400 100 / 100
Balance -1160 / -1160 1700 / 1700
[2024-03-23 11:30] VITALS: BP 129/81
--- NOTE | 2024-03-23 11:55 | W.PN.GS2 ---
Addendum entered and electronically signed by Rishi Bingham MD 03/23/24 12:01:
bruner was placed overnight as housestaff covering were concerned regarding possible retention - after bruner placed there was reportedly not much residual/retention.
remove bruner catheter without need to replace
pt generally incontinent of urine at baseline
Original Note:
Today's Communication / Plan
-
`
Assessment / Plan
-
Patient is a 54 yo F with h/o developmental delay now POD#15 s/p Aj's for sigmoid volvulus
Superficial necrosis to lateral aspect of stoma (wound care following with photos documenting progress), will follow expectantly and nonoperatively at this point, expect that much of this was due to edema and has stabilized
medically/surgically stable for d/c
Plan: continue low residue diet as tolerated
-- Wound care following, suspect that the superficial necrosis on the stoma is from the previous edema (improving), expect this to slough off over the next few days.
-- Pain control: Tylenol and Ibuprofen, minimize narcotics as this may be contributing to patients underlying motility issues
--dispo planning - possible return to [facility] vs [facility]
attempted to call sister listed as contact - went to voicemail
Subjective Data
-
Date of Service: March 23, 2024
pt seen and examined
resting comfortably in hospital bed
denies pain
eating meals
Objective Data
-
Intake and Output
03/22/24 03/23/24 03/24/24
06:59 06:59 06:59
Intake Total 240 / 240 1800 / 1800
Output Total 1400 / 1400 100 / 100
Balance -1160 / -1160 1700 / 1700
Intake:
Oral fluids 240 / 240 1800 / 1800
Output:
Liquid stool amount 1400 / 1400 100 / 100
Colostomy 1400 / 1400 100 / 100
Other:
How many times incontinent 1
SMALL amount urine
How many times incontinent 2 3
SATURATED amount urine
Vital Signs
Temp Pulse Resp BP Pulse Ox
97 F 98 16 129/81 98
03/23/24 11:30 03/23/24 11:30 03/23/24 11:30 03/23/24 11:30 03/23/24 11:30
Lab Results
03/21/24 06:25
03/21/24 06:25
Calcium 9.3 mg/dl (8.4-10.2) 03/21/24 06:25
Phosphorus 3.3 mg/dl (2.5-4.5) 03/21/24 06:25
Magnesium 1.8 mg/dl (1.6-2.3) 03/21/24 06:25
Total Bilirubin 0.5 mg/dl (0.2-1.3) 03/21/24 06:25
AST 23 U/L (14-36) 03/21/24 06:25
ALT 13 U/L (0-35) 03/21/24 06:25
Alkaline Phosphatase 73 U/L (38-126) 03/21/24 06:25
Total Protein 5.9 g/dl (6.3-8.2) L 03/21/24 06:25
Albumin 3.1 g/dl (3.5-5.0) L 03/21/24 06:25
Physical Exam
-
NAD AAO to self
ABD: soft, ND, NTTP
incision with nickie, no open wounds or drainage
ostomy functioning
Patient has a bruner catheter: Yes
Patient has a central line: No
--- NOTE | 2024-03-23 11:59 | PTCARENOTE ---
Alba catheter dc'd per order. Pt tolerated well.
[2024-03-23 15:00] VITALS: BP 117/87
--- NOTE | 2024-03-23 15:44 | CM ---
Spoke with RN who stated that patient will be medically cleared for discharge per attending. Placed a call to Gigi Camacho [phone]. She stated that prior to patient returning, they need a discharge summary, med list and instructions for
colostomy. She stated that [facility] will be able to accept back tomorrow.
Plan: Case management will continue to follow and assist with discharge planning. If medically stable, discharge tomorrow back to [facility].
[2024-03-23 16:24] VITALS: BP 111/75; PULSE 56; O2SAT 96
[2024-03-23] MEDS: LOVENOX 40 MG SC (17:19)
--- NOTE | 2024-03-23 17:27 | PTCARENOTE ---
Pt voided nellie color urine in the toilet, unable to fully access quantity.
[2024-03-23] MEDS: DEPAKOTE ER (24 HR RELEASE) 500 MG PO (21:11)
[2024-03-23 23:00] VITALS: BP 100/68
[2024-03-24] MEDS: SYNTHROID 50 MCG PO (05:22)
[2024-03-24 07:31] VITALS: BP 96/67
--- NOTE | 2024-03-24 09:51 | WOUNDNOTE ---
[facility] RN note: Dr. Torre removed some midline incision nickie. RLQ wound just next to midline incision deep dermal, pink with white fibrin. Wound cleansed with saline, small silicone border foam applied avoiding incision. Incision covered with ABD
pad after changing colostomy appliance. Wafer was leaking proximally. Peristomal skin intact. Stoma pink with less slough along R anterior lateral side of stoma. Danial wafer #[id number], Dat seal and Danial pouch # [id number]. Dr. Torre stated he
prefers the wafer not to lay over the midline incision. Ostomy supplies left at bedside. Patient unable to learn ostomy care. Nursing to continue to assist with routine pouch changes. Sacral and heel skin intact. Patient moves self easily in bed.
Pillow under calves for heel elevation. Will follow as needed.
[2024-03-24] MEDS: PROTONIX 40 MG PO (10:08)
[2024-03-24] MEDS: DEPAKOTE ER (24 HR RELEASE) 250 MG PO (10:08)
--- NOTE | 2024-03-24 10:11 | W.PN.GS2 ---
Today's Communication / Plan
-
-- Staple removal
-- Dispo planning
Assessment / Plan
-
Patient is a 54 yo F with h/o developmental delay now POD#16 s/p Aj's for sigmoid volvulus
Superficial necrosis to lateral aspect of stoma (wound care following with photos documenting progress), will follow expectantly and nonoperatively at this point, expect that much of this was due to edema and has stabilized
Medically/surgically stable for d/c
Plan:
-- Continue low residue diet as tolerated
-- Wound care following, superficial necrosis on the stoma is from the previous edema (improving), expect this to slough off over the next few days
-- Pain control: Tylenol and Ibuprofen, minimize narcotics as this may be contributing to patients underlying motility issues
-- Staple removal today
-- Dispo planning - possible return to [facility] vs snf
Subjective Data
-
Date of Service: March 24, 2024
No complaints. Tolerating a diet. No reports of nausea or vomiting. No reports of worsening abdominal pain. Ostomy productive of flatus and stool.
Objective Data
-
Intake and Output
03/23/24 03/24/24 03/25/24
06:59 06:59 06:59
Intake Total 1800 / 1800 1080 / 1080
Output Total 100 / 100 250 / 250 75 / 75
Balance 1700 / 1700 830 / 830 -75 / -75
Intake:
Oral fluids 1800 / 1800 1080 / 1080
Output:
Liquid stool amount 100 / 100 50 / 50 75 / 75
Colostomy 100 / 100 50 / 50 75 / 75
Urine, Bruner 200 / 200
Other:
Number of approximated SMALL 1
amounts of urine
Number of approximated MODERATE 2
amounts of urine
Number of approximated LARGE 1
amounts of urine
How many times incontinent 3
SATURATED amount urine
Vital Signs
Temp Pulse Resp BP Pulse Ox
98.7 F 91 17 96/67 97
03/24/24 07:31 03/24/24 07:31 03/24/24 07:31 03/24/24 07:31 03/24/24 07:31
Lab Results
03/21/24 06:25
03/21/24 06:25
Calcium 9.3 mg/dl (8.4-10.2) 03/21/24 06:25
Phosphorus 3.3 mg/dl (2.5-4.5) 03/21/24 06:25
Magnesium 1.8 mg/dl (1.6-2.3) 03/21/24 06:25
Total Bilirubin 0.5 mg/dl (0.2-1.3) 03/21/24 06:25
AST 23 U/L (14-36) 03/21/24 06:25
ALT 13 U/L (0-35) 03/21/24 06:25
Alkaline Phosphatase 73 U/L (38-126) 03/21/24 06:25
Total Protein 5.9 g/dl (6.3-8.2) L 03/21/24 06:25
Albumin 3.1 g/dl (3.5-5.0) L 03/21/24 06:25
Physical Exam
-
Gen: NAD
Abd: soft, NT/ND, non-peritoneal, incision c/d/i - no erythema, ecchymosis or drainage, nickie in place, ostomy viable - stool and flatus in appliance, stable superficial necrosis/mucoal check Bruner slough
Patient has a bruner catheter: No
Patient has a central line: No
[2024-03-24] MEDS: LOPRESSOR 50 MG PO (10:12)
--- NOTE | 2024-03-24 10:20 | WOUNDNOTE ---
WOC RN note: Confirmed local wound care RLQ wound with JOSE Gilbert. Also, patient's stoma necrosis is improved, sloughing off. Area of necrosis is yellow instead of brown now.
--- NOTE | 2024-03-24 11:07 | W.DCSUMMARY ---
Discharge Summary
Discharge Data
Date of Admission: 03/08/24
Date of Discharge: 03/24/24
-
Pending Results: No
Hospital Course
Ms Gandhi presented through the emergency room with abdominal distention and vomiting with sigmoid volvulus present on CT imaging. Endoscopic decompression was attempted by gastroenterology without success and she was taken to the operating room
for management with exploratory laparotomy for sigmoidectomy and end ostomy creation. She had noted ileus with NGT required initially for decompression. Once her stoma was productive of stool and flatus and nausea resolved, the ngt was able to
removed and her diet was slowly advanced and well tolerated. In the initial post operative period, the stoma was quite edematous and she did develop superficial necrosis to the upper left edge of the stoma bud which had begun to slough off by time
of discharge with healthy tissue noted underneath.
She had noted severe hyponatremia on presentation and was followed by nephrology during the initial portion of her course of stay for IV fluids and electrolyte replacements. She was followed by the hospitalist team through the initial portion of her
stay as well for medical management. She was followed by PT and OT post operatively and cleared to return to her senior care. Prior to discharge, nickie from midline incision where removed.
Discharge Plan
-
Patient Disposition: Assisted Living
Discharge Diagnosis/Procedures: Sigmoid volvulus, sigmoidectomy, end colostomy
Condition: Good
Diet: Regular
Activity: No strenuous activity
Additional Activity: Do not lift over 15 lbs for 4 weeks
Bathing Restrictions: OK to Shower
Wound Care: Ok to gently wash incisions, avoid scrubbing. Ok for steri strips to come off in the next 1-2 weeks.
Activity Restrictions/Additional Instructions:
RLQ wound (near incision)-clean with saline, apply silicone border foam, change daily.
May use Danial Barrier # [id number] [place]ins seal and pouch # [id number] OR barrier # [id number], [place]ins seal and pouch # [id number].
Call supply company (list in folder provided) for monthly Ostomy supplies after discharge (ask VN to order supplies while on service).
Follow up with surgeon.
Call [facility] RN nurse for ostomy pouching concerns or leakage problems [phone] or [phone] or [phone].
Instructions: Living with a colostomy, How to care for an ostomy
Referrals:
Corwin Haq DO [Family Provider] - in one to two weeks
Rich Hayes MD [Active] - in one week
Prescriptions:
Continued
tolterodine 2 mg Capsule,Extended Release 24hr
2 mg PO HS
latanoprost 0.005 % Drops
1 drp BOTH EYES HS
acetaminophen 325 mg Tablet
650 mg PO Q4HPRN PRN (Reason: mild pain/headache/temp>101)
polyethylene glycol 3350 [Gavilax] 17 gram Powder In Packet
17 g PO Q48H
therapeutic multivitamin Tablet
1 tab PO DAILY
dextromethorphan-guaifenesin [Chest Congestion Relief DM] 10-100 mg/5 mL Syrup
10 ml PO Q4HPRN PRN (Reason: cough)
risperidone 3 mg Tablet
3 mg PO HS
levothyroxine 50 mcg Tablet
50 mcg PO DAILY
divalproex 500 mg Tablet Extended Release 24 Hr
500 mg PO HS
docusate sodium 100 mg Capsule
100 mg PO BID
pseudoephedrine HCl [Sudogest] 30 mg Tablet
30 mg PO Q6HPRN PRN (Reason: nasal congestion)
hydroxyzine HCl 25 mg Tablet
25 mg PO DAILYPRN PRN (Reason: anxiety before medical procedure)
loratadine 10 mg Tablet
10 mg PO DAILYPRN PRN (Reason: allergy/cough)
divalproex 250 mg Tablet Extended Release 24 Hr
250 mg PO DAILY
atomoxetine 18 mg Capsule
18 mg PO DAILY
Triple Antibiotic 3.5-400-5,000 [id number] Ointment In Packet
1 applic TOPICAL TIDPRN PRN (Reason: cuts/scrapes/abrasion)
calcium carbonate-vitamin D3 [Calcium 600 + D(3)] 600 mg-10 mcg (400 unit) Tablet
2 tab PO HS
Discontinued
loperamide 2 mg Capsule
2 mg PO Q4HPRN PRN (Reason: diarrhea)
Discharge Orders:
Discharge Patient (As Directed); Ordered 03/24/24
Ordered By: Ofelia Olivo
Discharge Date and Time
Print Language: ESTONIAN
--- NOTE | 2024-03-24 13:45 | CM ---
Per attending patient is stable for discharge. Asked attending for VN order. 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 # For report [phone] # . Vee stated that patient was
working with [facility]. Will send referral to [facility].
Plan: Case management will continue to follow and assist with discharge planning. Home with VN through [facility].
[2024-03-24 15:12] VITALS: BP 106/70
[2024-03-24] MEDS: LOVENOX 40 MG SC (18:17)
--- NOTE | 2024-03-24 18:31 | PTCARENOTE ---
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
== END 2024-03-24 20:04 | disposition home health service (06) | DRG 329 ==
LOC: 3 WEST ACU 17:07
PROVIDERS: Emergency Medicine; Family Medicine; Internal Medicine Nephrology; Physician Assistant; Registered Nurse; Specialist; ADMITTING PHYSICIAN Internal Medicine; ATTENDING PHYSICIAN Surgery; CONSULT PHYSICIAN Internal Medicine; EMERGENCY PHYSICIAN Emergency Medicine; FAMILY PHYSICIAN Internal Medicine; OTHER PHYSICIAN Internal Medicine
PROC: 0DJD8ZZ Inspection of Lower Intestinal Tract, Via Natural or Artificial Opening Endoscopic (ICD-10-PCS; 2024-03-08)
PROC: 0DTN0ZZ Resection of Sigmoid Colon, Open Approach (ICD-10-PCS; 2024-03-20)
PROC: 0D1M0Z4 Bypass Descending Colon to Cutaneous, Open Approach (ICD-10-PCS; 2024-03-20)
DX: K56.2 Volvulus (principal); K65.8 Other peritonitis; K91.89 Other postprocedural complications and disorders of digestive system; K55.9 Vascular disorder of intestine, unspecified; E22.2 Syndrome of inappropriate secretion of antidiuretic hormone; T81.42XA Infection following a procedure, deep incisional surgical site, initial encounter; D62 Acute posthemorrhagic anemia; E03.9 Hypothyroidism, unspecified; E87.6 Hypokalemia; I10 Essential (primary) hypertension; K56.7 Ileus, unspecified; Y83.6 Removal of other organ (partial) (total) as the cause of abnormal reaction of the patient, or of later complication, without mention of misadventure at the time of the procedure; K64.8 Other hemorrhoids; F70 Mild intellectual disabilities; E86.0 Dehydration; E16.2 Hypoglycemia, unspecified; M85.80 Other specified disorders of bone density and structure, unspecified site; Z79.899 Other long term (current) drug therapy
CPT/HCPCS: 88307; 51702; 71045; 74018; 74019; 74177; 74250; 80048; 80053; 80164; 81003; 82962; 83605; 83690; 83735; 83930; 83935; 84100; 84134; 84300; 84443; 84478; 84484; 85014; 85018; 85025; 85027; 86850; 86900; 86901; 87040; 87070; 87502; 92610; 93005; 96361; 96374; 97116; 97163; 97167; 97530; 97535; 99285; C1776; Q9967